=== PATIENT | female | born 1940 | race Caucasian/White ===

== ENCOUNTER → 2017-07-13 | Outpatient (CLI) | payer OTHER ==
[~2017-07-13] MED LIST: ALLO100T PO; ASCA500 PO; ASPEC325 PO; ATV/2 PO; CHOL100010 PO; COLC0.6T54 PO; DOCU100C PO; FRS/40 PO; KFL500 PO; LACTCHW3 PO; LEVO125T5 PO; MRP5 PO; NRN100 PO; OMEG10007 PO; OMEP40CA PO; OXYC-164 PO; POTA1080 PO; SULF800T23 PO
[2017-07-13 12:50] LABS: ALT/SGPT 15 U/L (12-78); BLOOD UREA NITROGEN 17 mg/dl (7-18); BUN/CREATININE RATIO 18.9 (10-20); CALCIUM 8.7 mg/dl (8.5-10.1); CARBON DIOXIDE 31 mmol/L (21-32); CHLORIDE 104 mmol/L (98-107); CHOLESTEROL 181 mg/dl (0-200); CREATININE 0.87 mg/dl (0.60-1.20); GLUCOSE,FASTING 111 mg/dl (70-99); POTASSIUM 3.6 mmol/L (3.5-5.1); SODIUM 141 mmol/L (136-145)
[2017-07-13 12:51] LABS: ESTIMATED AVERAGE GLUCOSE 137 mg/dl; HA1C FLAG Normal (Normal)
[2017-07-13 13:01] LABS: ALB/GLOB RATIO 0.9 (0.9-2); ALKALINE PHOSPHATASE 117 U/L (45-117); AST/SGOT 10 U/L (15-37); CHOLESTEROL/HDL RATIO 3.2; HDL CHOLESTEROL 56 mg/dl; LDL CHOLESTEROL CALCULATED 98 mg/dl; TRIGLYCERIDES 133 mg/dl (0-150); VERY LOW DENSITY LIPOPROT CALC 27 mg/dl
--- NOTE | 2017-07-17 13:44 | CODING QUERY MEDICAL NECESSITY ---
SUPPORTING DIAGNOSIS NEEDED A supporting diagnosis is required for the test/procedure performed on this patient in order for us to be reimbursed by the patient's insurance. Please provide a supporting diagnosis for the following test/procedure listed below next to the test name along with your signature. *If there is no additional diagnosis for this patient that would support the following test/procedure please document that below next to the test/procedure. Test(s)/Procedure(s) that require a supporting diagnosis: * HEMOGLOBIN A1C DIAGNOSIS: Provider Signature: Date: Thank you Al[facility] [employer] Once completed, please kindly fax back to [phone] For questions please call [phone]
== END | disposition home or self-care (01) ==
LOC: C.LABPBG 09:35
PROVIDERS: ATTEND Physician Assistant
DX: Z00.00 Encounter for general adult medical examination without abnormal findings (principal); E03.9 Hypothyroidism, unspecified; E66.01 Morbid (severe) obesity due to excess calories; R73.03 Prediabetes

== ENCOUNTER → 2017-08-04 | Outpatient (CLI) | payer OTHER | END | disposition home or self-care (01) | LOC: C.MAMM 12:35 | PROVIDERS: ATTEND Physician Assistant | DX: Z00.00 Encounter for general adult medical examination without abnormal findings (principal) ==

== ENCOUNTER → 2017-10-02 | Outpatient (CLI) | payer OTHER | END | disposition home or self-care (01) | LOC: C.LABPBG 14:59 | PROVIDERS: ATTEND Physician Assistant | DX: E03.9 Hypothyroidism, unspecified (principal) ==

== ENCOUNTER → 2018-01-19 | Outpatient (CLI) | payer OTHER ==
[2018-01-19 17:05] LABS: BASO % 0.3 %; BASO ABS # 0.02 K/uL (0-0.2); EOS % 4.7 %; EOS ABS # 0.35 K/uL (0-0.5); HEMOGLOBIN 12.5 g/dL (12.0-16.0); IG# 0.01 K/uL (0.00-0.02); LYMPH % 18.2 %; LYMPH ABS # 1.36 K/uL (1.2-3.4); MEAN CELL VOLUME 81.2 fL (80-100); MEAN CORPUSCULAR HEMOGLOBIN 24.8 pg (25-34); MEAN CORPUSCULAR HGB CONC 30.5 g/dl (32-36); MEAN PLATELET VOLUME 11.2 fL (7.4-10.4); MONO % 7.3 %; MONO ABS # 0.55 K/uL (0.11-0.59); NEUT % 69.4 %; PLATELET COUNT 281 K/uL (130-400); RED CELL DISTRIBUTION WIDTH CV 19.6 % (11.5-14.5); RED CELL DISTRIBUTION WIDTH SD 57.9 fL (36.4-46.3); WHITE BLOOD COUNT 7.49 K/uL (4.8-10.8)
[2018-01-19 17:24] LABS: BLOOD UREA NITROGEN 21 mg/dl (7-18); CALCIUM 8.8 mg/dl (8.5-10.1); CARBON DIOXIDE 32 mmol/L (21-32); CREATININE 0.85 mg/dl (0.60-1.20); GLUCOSE 99 mg/dl (70-99); POTASSIUM 3.5 mmol/L (3.5-5.1); SODIUM 140 mmol/L (136-145)
== END | disposition home or self-care (01) ==
LOC: C.LABPBG 14:29
PROVIDERS: ATTEND Internal Medicine Hematology & Oncology
DX: R79.89 Other specified abnormal findings of blood chemistry (principal)

== ENCOUNTER 2019-02-17 11:06 | Inpatient (IN) ==
[2019-02-17] MEDS ORDERED: SODIUM CHLORIDE 0.9% 1000ML 1,000 ML IV SCH (12:00)
[2019-02-17 12:25] LABS: Basophils # (auto) 0.01 K/uL (0-0.2); Basophils % (auto) 0.2 %; Eosinophils # (auto) 0.41 K/uL (0-0.5); Eosinophils % (auto) 8.7 %; Hematocrit (blood only) 37.9 % (37-47); Hemoglobin 11.7 g/dL (12.0-16.0); Immature Granulocytes # (auto) 0.02 K/uL (0.00-0.02); Immature Granulocytes % (auto) 0.4 %; Lymphocytes # (auto) 0.61 K/uL (1.2-3.4); Mean Corpuscular Hgb Conc 30.9 g/dL (32-36); Mean Corpuscular Volume 83.5 fL (80-100); Mean Platelet Volume 10.2 fL (7.4-10.4); Monocytes # (auto) 0.69 K/uL (0.11-0.59); Monocytes % (auto) 14.7 %; Neutrophils # (auto) 2.95 K/uL (1.4-6.5); Platelet Count 232 K/uL (130-400); RDW Coefficient of Variation 17.9 % (11.5-14.5); RDW Standard Deviation 54.8 fL (36.4-46.3); Red Blood Count 4.54 M/uL (4.2-5.4); White Blood Count 4.69 K/uL (4.8-10.8)
[2019-02-17 12:39] LABS: Albumin Level 3.5 gm/dl (3.4-5.0); BUN Creatinine Ratio 19.2 (10-20); Calcium 8.9 mg/dl (8.5-10.1); Creatinine Clr Calc Pharmacy 43.6 ml/min; Est GFR (African American) 44.8; Est GFR (Non-African American) 38.6; Magnesium 2.6 mg/dl (1.8-2.4)
--- NOTE | 2019-02-17 12:47 | XRay Report ---
XR chest 1V portable CLINICAL HISTORY: weakness COMPARISON STUDY: Chest radiograph November 23, 2015. FINDINGS: Degenerative changes of both glenohumeral joints are incidentally noted. Elevation of the r ight hemidiaphragm is unchanged. There is no pneumothorax or pleural effusion. Note is made of mild c ardiomegaly. IMPRESSION: 1. No acute cardiopulmonary findings. 2. Stable elevation of the right hemidiaphragm. Electronically signed by: Adolph Smith M.D. 02/17/2019 12:45 PM
[2019-02-17 12:50] LABS: Albumin Globulin Ratio 0.9 (0.9-2); Bilirubin,Total 0.3 mg/dl (0.2-1); Total Protein 7.5 gm/dl (6.4-8.2)
[2019-02-17 12:53] LABS: Appearance Urine Clear (Clear); Bilirubin Urine Negative (Negative); Blood Urine Negative (Negative); Color Urine Yellow; Glucose Urine UA Negative (Negative); Ketones Urine Negative (Negative); Leukocyte Esterase Urine Negative (Negative); Nitrite Urine Negative (Negative); Protein Urine Negative (Negative); Specific Gravity Urine 1.019 (1.000-1.030); Urobilinogen Urine Negative (Negative); pH Urine 7.5 (4.5-7.5)
--- NOTE | 2019-02-17 15:53 | XRay Report ---
RIGHT ANKLE 3 VIEWS CLINICAL HISTORY: Fall with right ankle pain. FINDINGS: 3 views of the right ankle are obtained. No prior studies are available for comparison at t he time of dictation. The skeletal structures are heterogeneously osteopenic. No acute fracture is id entified. The ankle mortise is intact. There is a small joint effusion. Diffuse soft tissue edema is present throughout the imaged right lower extremity. There is atherosclerotic calcification of the re gional arteries. There are large dorsal and plantar calcaneal enthesophytes. Arthritic change is note d in the hindfoot. IMPRESSION: 1. Diffuse soft tissue edema with no radiographic evidence of acute fracture. 2. Osteopenia, arthritic change, and large heel spurs as above. Electronically signed by: Sd Abdalla M.D. 02/17/2019 3:51 PM
[2019-02-17] MEDS ORDERED: DOXYCYCLINE HYCLATE 100 MG CAP PO STA (15:59)
--- NOTE | 2019-02-17 16:02 | Emergency Department Note ---
Entered by Leonarda Arenas acting as a scribe for History of Present Illness General Chief complaint: Illness Stated complaint: weakness Source: patient Mode of arrival: EMS Limitations: no limitations History of Present Illness Provider complaint: weakness Onset (ago): day(s) 3 Location: head (generalized) Pain Consistency: + other (worsening) Maximum Pain Intensity: 4 Quality: + other (weakness) Associated symptoms: + shortness of breath; no cough and no fever/chills The patient is a 79 year old female who presents to the ER via EMS with complaints of a worsening weakness that began 3 days ago. The patient reports that her legs feel heavy and that she has almost fallen secondary to the weakness. She states that she has been short of breath at times and denies wearing nasal cannula oxygen at baseline. She denies any fevers or acute coughs. She notes that she has taken 3 pills of her prescribed medication for her UTI. She denies any recent head injuries. She reports that she has been eating and drinking baseline. She denies any vomiting or diarrhea. She states that she has chronic leg swelling and is instructed to take Lasix twice a day but notes she does not always do this. Home Medications Home Medications Medication Instructions Recorded Confirmed Type Prilosec OTC 40 mg PO DAILY 10/26/18 02/17/19 History allopurinol [Zyloprim] 100 mg PO TID 10/26/18 02/17/19 History ascorbic acid (vitamin C) 1 g PO DAILY 10/26/18 02/17/19 History aspirin 325 mg PO DAILY 10/26/18 02/17/19 History cholecalciferol (vitamin D3) 1,000 unit PO DAILY 10/26/18 02/17/19 History [Vitamin D3] docusate sodium 200 mg PO DAILY 10/26/18 02/17/19 History furosemide [Lasix] 80 mg PO BID 10/26/18 02/17/19 History levothyroxine 137 mcg PO DAILY 10/26/18 02/17/19 History nifedipine 30 mg PO DAILY #30 tab 10/27/18 02/17/19 Rx calcium carbonate [Calcium 600] 600 mg PO DAILY 02/17/19 02/17/19 History gabapentin 300 mg PO TID 02/17/19 02/17/19 History omega 0-[id number]-fish oil [Fish Oil] 1 cap PO DAILY 02/17/19 02/17/19 History potassium chloride 10 meq PO DAILY 02/17/19 02/17/19 History pramipexole 0.5 mg PO HS 02/17/19 02/17/19 History sulfamethoxazole-trimethoprim 1 tab PO BID 02/17/19 02/17/19 History triamcinolone acetonide 1 applic TOPICAL BID 02/17/19 02/17/19 History vitamin E 1,000 unit PO DAILY 02/17/19 02/17/19 History Allergies Allergy/AdvReac Type Severity Reaction Status Date / Time bandaids AdvReac Unknown unknown Uncoded 02/17/19 12:00 Past Med/Surg History Medical History Morbid obesity (Chronic) CHAKA (acute kidney injury) (Acute) Ambulatory dysfunction (Acute) Right ankle sprain (Acute) Fall (Acute) Venous insufficiency (Chronic) Cellulitis of both lower extremities (Acute) Chronic venous insufficiency (Acute) GERD (gastroesophageal reflux disease) (Acute) Gout (Acute) Hypothyroid (Acute) PAD (peripheral artery disease) (Acute) RLS (restless legs syndrome) (Acute) Surgical History History of bilateral knee replacement (Acute) History of cholecystectomy (Acute) History of hysterectomy (Acute) Social History Preferred Language: Wallisian Communication Ability: Effective Communication Ability Comment: unable to hold utensil d/t BUE pain from arthritis 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 and A total of 10 systems reviewed and were otherwise negative Physical Exam Vital Signs Vital Signs - 24 hr 02/17/19 10:53 02/17/19 12:32 02/17/19 13:15 Temperature 36.4 C L Temperature Source Oral Sepsis Recent Fever Within 48 Hours No Sepsis New/Unexplained Change in Mental Status No Sepsis Action Taken by Nursing No Action Required Pulse Rate 76 Pulse Rate [Apical] 75 Respiratory Rate 16 18 Blood Pressure 127/109 H Blood Pressure [Right Arm] 149/83 H Blood Pressure Mean 115 Blood Pressure Mean [Right Arm] 105 Pulse Oximetry 89 L 96 96 Oxygen Delivery Method Room Air Nasal Cannula Nasal Cannula Oxygen Flow Rate 2 2 Vital signs reviewed. General: Well-appearing, morbidly obese, in no significant distress. HEENT: No scleral icterus, PERRLA, neck supple. Atraumatic. Cardiovascular: Regular rate and rhythm, no extra sounds. Pulmonary: Clear to auscultation bilaterally, normal work of breathing. Abdomen: Soft, nontender, nondistended, positive bowel sounds. Musculoskeletal: Atraumatic, bilateral lower extremity edema and venous stasis changes. Neurologic: Patient awake alert and oriented x 3, full strength in all 4 extremities. Cranial nerves 2 through 12 grossly intact. Skin: Warm, dry, no rash Course 1153: Past medical records reviewed. The patient was evaluated in room A12B. A complete history and physical examination was performed. 1515: The patient is now complaining of right ankle pain. Administered Medications Acetaminophen (Tylenol) 650 mg PO Q4H PRN PRN Reason: pain/fever Stop: 03/19/19 19:05 Last Admin: 02/19/19 13:58 Dose: 650 mg Documented by: [id number] Admin: 02/19/19 00:32 Dose: 650 mg Documented by: [id number] Admin: 02/18/19 09:23 Dose: 650 mg Documented by: [id number] Admin: 02/18/19 01:44 Dose: 650 mg Documented by: [id number] Admin: 02/17/19 20:47 Dose: 650 mg Documented by: [id number] Allopurinol (Zyloprim) 100 mg PO TID [facility] Stop: 03/19/19 20:59 Last Admin: 02/19/19 13:56 Dose: 100 mg Documented by: [id number] Admin: 02/19/19 08:51 Dose: 100 mg Documented by: [id number] Admin: 02/18/19 20:07 Dose: 100 mg Documented by: [id number] Admin: 02/18/19 13:16 Dose: 100 mg Documented by: [id number] Admin: 02/18/19 08:04 Dose: 100 mg Documented by: [id number] Admin: 02/17/19 21:01 Dose: 100 mg Documented by: [id number] Ascorbic Acid (Vitamin C) 1,000 mg PO DAILY [facility] Stop: 03/20/19 08:59 Last Admin: 02/19/19 08:52 Dose: 1,000 mg Documented by: [id number] Admin: 02/18/19 08:04 Dose: 1,000 mg Documented by: [id number] Aspirin (Ecotrin) 325 mg PO DAILY [facility] Stop: 03/20/19 08:59 Last Admin: 02/19/19 08:51 Dose: 325 mg Documented by: [id number] Admin: 02/18/19 08:03 Dose: 325 mg Documented by: [id number] Diclofenac Sodium (Voltaren 1% Top) 1 appln EXT Q12 PRN PRN Reason: Pain Stop: 03/21/19 04:04 Last Admin: 02/19/19 08:50 Dose: 1 appln Documented by: [id number] Admin: 02/19/19 05:45 Dose: 1 appln Documented by: [id number] Docusate Sodium (Colace) 200 mg PO DAILY [facility] Stop: 03/20/19 08:59 Last Admin: 02/19/19 08:52 Dose: 200 mg Documented by: [id number] Admin: 02/18/19 08:03 Dose: 200 mg Documented by: [id number] Enoxaparin Sodium (Lovenox) 40 mg SQ Q24H [facility] Stop: 03/19/19 20:59 Last Admin: 02/18/19 20:07 Dose: 40 mg Documented by: [id number] Admin: 02/17/19 21:05 Dose: 40 mg Documented by: [id number] Fish Oil ([place]-3 (Purified Fish Oil)) 1 gm PO DAILY [facility] Stop: 03/20/19 08:59 Last Admin: 02/19/19 08:51 Dose: 1 gm Documented by: [id number] Admin: 02/18/19 08:04 Dose: 1 gm Documented by: [id number] Gabapentin (Neurontin) 300 mg PO TID [facility] Stop: 03/19/19 20:59 Last Admin: 02/19/19 13:56 Dose: 300 mg Documented by: [id number] Admin: 02/19/19 08:50 Dose: 300 mg Documented by: [id number] Admin: 02/18/19 20:07 Dose: 300 mg Documented by: [id number] Admin: 02/18/19 13:16 Dose: 300 mg Documented by: [id number] Admin: 02/18/19 08:05 Dose: 300 mg Documented by: [id number] Admin: 02/17/19 21:02 Dose: 300 mg Documented by: [id number] Ceftriaxone Sodium 2,000 mg/ (Dextrose) 70 mls @ 100 mls/hr IV Q24H [facility]; Protocol Stop: 02/27/19 19:59 Last Infusion: 02/18/19 21:33 Dose: 0 mls/hr Documented by: [id number] Admin: 02/18/19 20:06 Dose: 100 mls/hr Documented by: [id number] Infusion: 02/17/19 21:37 Dose: 0 mls/hr Documented by: [id number] Admin: 02/17/19 20:48 Dose: 100 mls/hr Documented by: [id number] [facility]ine [facility] S[facility]: 03/20/19 06:29 Last Admin: 02/19/19 05:45 Dose: 137 mcg Documented by: [id number] Admin: 02/18/19 05:54 Dose: 137 mcg Documented by: [id number] Multivitamins/Minerals (Caltrate Plus) 1 tab PO DAILY [facility] Stop: 03/20/19 08:59 Last Admin: 02/19/19 08:50 Dose: 1 tab Documented by: [id number] Admin: 02/18/19 08:04 Dose: 1 tab Documented by: [id number] Pantoprazole Sodium (Protonix) 40 mg PO DAILY [facility] Stop: 03/20/19 08:59 Last Admin: 02/19/19 08:50 Dose: 40 mg Documented by: [id number] Admin: 02/18/19 08:04 Dose: 40 mg Documented by: [id number] Pramipexole Dihydrochloride (Mirapex) 0.5 mg PO [facility] Stop: 03/19/19 20:59 Last Admin: 02/18/19 20:07 Dose: 0.5 mg Documented by: [id number] Admin: 02/17/19 21:01 Dose: 0.5 mg Documented by: [id number] Triamcinolone Acetonide (Kenalog 0.025%) 1 appln TOP BID [facility] Stop: 03/19/19 20:59 Last Admin: 02/19/19 08:52 Dose: 1 appln Documented by: [id number] Admin: 02/18/19 20:07 Dose: 1 appln Documented by: [id number] Admin: 02/18/19 08:05 Dose: 1 appln Documented by: [id number] Admin: 02/17/19 21:00 Dose: 1 appln Documented by: [id number] Vitamin D (Vitamin D3) 1,000 units PO DAILY [facility] Stop: 03/20/19 08:59 Last Admin: 02/19/19 08:51 Dose: 1,000 units Documented by: [id number] Admin: 02/18/19 08:04 Dose: 1,000 units Documented by: [id number] Vitamin E (Vitamin E) 800 units PO DAILY [facility] Stop: 03/20/19 08:59 Last Admin: 02/19/19 08:51 Dose: 800 units Documented by: [id number] Admin: 02/18/19 09:19 Dose: 800 units Documented by: [id number] Discontinued Medications Doxycycline Hyclate (Vibramycin) 100 mg PO NOW STA Stop: 02/17/19 16:00 Last Admin: 02/17/19 16:52 Dose: 100 mg Documented by: [id number] Sodium Chloride (Nss 1000ml) 1,000 mls @ 125 mls/hr IV .Q8H [facility] Stop: 02/17/19 19:59 Last Infusion: 02/17/19 19:11 Dose: 0 mls/hr Documented by: [id number] Admin: 02/17/19 12:20 Dose: 125 mls/hr Documented by: [id number] Sodium Chloride (Nss 1000ml) 1,000 mls @ 80 mls/hr IV .[id number] [facility] Stop: 03/19/19 19:29 Last Admin: 02/18/19 11:32 Dose: Not Given Documented by: [id number] Infusion: 02/18/19 11:30 Dose: 0 mls/hr Documented by: [id number] Admin: 02/17/19 20:48 Dose: 80 mls/hr Documented by: [id number] Medical Decision Making Differential Diagnosis Differential Diagnosis includes but is not limited to dehydration, stroke, ane pierre, hypoglycemia, hyponatremia, hypernatremia, urinary tract infection, pneumonia, bronchitis, sepsis, gastroenteritis, additional abdominal pathology, metabolic abnormalities and infections. Medical Records Attestation: I reviewed the patient's medical records. The patient was diagnosed with a UTI on the of this month and was treated with Bactrim. Home Medications Current Medication List: was personally reviewed by me Laboratory Data Attestation: I reviewed the patient's lab results. Result diagrams: 02/19/19 05:36 02/19/19 05:36 Lab Results 02/17/19 02/17/19 02/17/19 Range/Units 12:10 12:10 12:20 WBC 4.69 L (4.8-10.8) K/uL RBC 4.54 (4.2-5.4) M/uL Hgb 11.7 L (12.0-16.0) g/dL Hct 37.9 (37-47) % MCV 83.5 (80-100) fL MCH 25.8 (25-34) pg MCHC 30.9 L (32-36) g/dL RDW Std Deviation 54.8 H (36.4-46.3) fL RDW Coeff of Josue 17.9 H (11.5-14.5) % Plt Count 232 (130-400) K/uL MPV 10.2 (7.4-10.4) fL Immature Gran % (Auto) 0.4 % Neut % (Auto) 63.0 % Lymph % (Auto) 13.0 % Stone % (Auto) 14.7 % Eos % (Auto) 8.7 % Baso % (Auto) 0.2 % Immature Gran # (Auto) 0.02 (0.00-0.02) K/uL Neut # (Auto) 2.95 (1.4-6.5) K/uL Lymph # (Auto) 0.61 L (1.2-3.4) K/uL Stone # (Auto) 0.69 H (0.11-0.59) K/uL Eos # (Auto) 0.41 (0-0.5) K/uL Baso # (Auto) 0.01 (0-0.2) K/uL PT 9.9 (9.0-12.0) Seconds INR 1.0 (0.9-1.1) Sodium 141 (136-145) mmol/L Potassium 4.0 (3.5-5.1) mmol/L Chloride 104 (98-107) mmol/L Carbon Dioxide 30 (21-32) mmol/L Anion Gap 7.0 (3-11) BUN 25 H (7-18) mg/dl Creatinine 1.31 H (0.6-1.2) mg/dl Est Cr Clr Drug Dosing 43.6 ml/min Est GFR ( Amer) 44.8 Est GFR (Non-Af Amer) 38.6 BUN/Creatinine Ratio 19.2 (10-20) Glucose 93 (70-99) mg/dl Calcium 8.9 (8.5-10.1) mg/dl Magnesium 2.6 H (1.8-2.4) mg/dl Total Bilirubin 0.3 (0.2-1) mg/dl AST 9 L (15-37) U/L ALT 13 (12-78) U/L Alkaline Phosphatase 103 (45-117) U/L Total Protein 7.5 (6.4-8.2) gm/dl Albumin 3.5 (3.4-5.0) gm/dl Globulin 4.0 (2.5-4.0) gm/dl Albumin/Globulin Ratio 0.9 (0.9-2) TSH 2.790 (0.300-4.500) uIu/ml Urine Color Urine Appearance (Clear) Urine pH (4.5-7.5) Ur Specific [place] (1.000-1.030) Urine Protein (Negative) Urine Glucose (UA) (Negative) Urine Ketones (Negative) Urine Blood (Negative) Urine Nitrite (Negative) Urine Bilirubin (Negative) Urine Urobilinogen (Negative) Ur Leukocyte Esterase (Negative) 02/17/19 Range/Units 12:45 WBC (4.8-10.8) K/uL RBC (4.2-5.4) M/uL Hgb (12.0-16.0) g/dL Hct (37-47) % MCV (80-100) fL MCH (25-34) pg MCHC (32-36) g/dL RDW Std Deviation (36.4-46.3) fL RDW Coeff of Josue (11.5-14.5) % Plt Count (130-400) K/uL MPV (7.4-10.4) fL Immature Gran % (Auto) % Neut % (Auto) % Lymph % (Auto) % Stone % (Auto) % Eos % (Auto) % Baso % (Auto) % Immature Gran # (Auto) (0.00-0.02) K/uL Neut # (Auto) (1.4-6.5) K/uL Lymph # (Auto) (1.2-3.4) K/uL Stone # (Auto) (0.11-0.59) K/uL Eos # (Auto) (0-0.5) K/uL Baso # (Auto) (0-0.2) K/uL PT (9.0-12.0) Seconds INR (0.9-1.1) Sodium (136-145) mmol/L Potassium (3.5-5.1) mmol/L Chloride (98-107) mmol/L Carbon Dioxide (21-32) mmol/L Anion Gap (3-11) BUN (7-18) mg/dl Creatinine (0.6-1.2) mg/dl Est Cr Clr Drug Dosing ml/min Est GFR ( Amer) Est GFR (Non-Af Amer) BUN/Creatinine Ratio (10-20) Glucose (70-99) mg/dl Calcium (8.5-10.1) mg/dl Magnesium (1.8-2.4) mg/dl Total Bilirubin (0.2-1) mg/dl AST (15-37) U/L ALT (12-78) U/L Alkaline Phosphatase (45-117) U/L Total Protein (6.4-8.2) gm/dl Albumin (3.4-5.0) gm/dl Globulin (2.5-4.0) gm/dl Albumin/Globulin Ratio (0.9-2) TSH (0.300-4.500) uIu/ml Urine Color Yellow Urine Appearance Clear (Clear) Urine pH 7.5 (4.5-7.5) Ur Specific [place] 1.019 (1.000-1.030) Urine Protein Negative (Negative) Urine Glucose (UA) Negative (Negative) Urine Ketones Negative (Negative) Urine Blood Negative (Negative) Urine Nitrite Negative (Negative) Urine Bilirubin Negative (Negative) Urine Urobilinogen Negative (Negative) Ur Leukocyte Esterase Negative (Negative) Imaging Data Radiologist's Impression: Radiology results as stated below per my review and the radiologist's interpretation: XR chest 1V portable CLINICAL HISTORY: weakness COMPARISON STUDY: Chest radiograph November 23, 2015. FINDINGS: Degenerative changes of both glenohumeral joints are incidentally noted. Elevation of the right hemidiaphragm is unchanged. There is no pneum othorax or pleural effusion. Note is made of mild cardiomegaly. IMPRESSION: 1. No acute cardiopulmonary findings. 2. Stable elevation of the right hemidiaphragm. Electronically signed by: Adolph Smith M.D. 02/17/2019 12:45 PM ECG Data Attestation: I personally reviewed and interpreted this ECG as follows: Indication: weakness Rate (beats per minute): 81 Rhythm: normal sinus Findings: + other (non-specific T wave abn); no acute ischemic change and no ec topy Blood Pressure Blood Pressure Findings: Normal blood pressure Blood Pressure Disposition: did not require urgent referral MDM Narrative This patient was evaluated and appeared to be in no significant distress. IV access was obtained and laboratory work was drawn. 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 Patient was currently being treated for UTI growing Proteus with Bactrim. Doxycycline 100 mg p.o. was added for cellulitic change. Chest x-ray is clear. Laboratory work is fairly reassuring. Patient complained of right ankle pain on my reevaluation and an x-ray was performed, this is negative for acute fracture. Patient has not been overly compliant with her Lasix due to ambulatory difficulties. When discussing the possibility of a rehab facility or transfer home, the patient became tearful. She feels she is not in any condition to go home. She states her daughter's "almost dropped me twice" trying to transfer from the toilet. Case management was consulted and hospitalist management was recommended given the patient's situation. She may require rehabilitation stay after UTI is fully treated. Patient is aware of the plan and agrees. Impression & Plan UTI (urinary tract infection), Ambulatory dysfunction, Weakness generalized Discharge Plan Visit Data *Final* Discharge Date/Time: 02/17/19 18:06 Chief Complaint: Illness Stated Complaint: weakness ED Provider: Jessie Harmon Discharge Problem: UTI (urinary tract infection), Ambulatory dysfunction, Weakness generalized Patient Disposition: Admitted As Inpatient Discharge Instructions Interventions: ED Discharge Assessment Last Done: 02/17/19 18:06 Discharge Problem: UTI (urinary tract infection) Qualifiers: Urinary tract infection type: acute cystitis Hematuria presence: without hematuria Qualified Code(s): N30.00 - Acute cystitis without hematuria The scribe's documentation has been prepared under my direction and personally reviewed by me in its entirety. I confirm that the note above accurately reflects all work, treatment, procedures, and medical decision making performed by me.
--- NOTE | 2019-02-17 17:00 | History & Physical Report ---
Date of Service February 17, 2019 Assessment & Plan (1) Cellulitis of both lower extremities: Worsening erythema bilateral lower extremities. This could simply be stasis dermatitis but she could also have cellulitis. Intravenous Rocephin ordered Present on Admission?: Yes (2) Venous insufficiency: This is a chronic problem. Nifedipine may be aggravating the edema. Nifedipine will be discontinued. Will apply Stalin wraps to both legs below the knees to try to help resolve some of the swelling Present on Admission?: Yes (3) Fall: Mechanical fall today without syncope. This is how she sprained her right ankle Present on Admission?: Yes (4) Right ankle sprain: Supportive care. OT and PT consultations. Pain control measures as neces maile. No fracture on x-ray Present on Admission?: Yes (5) Ambulatory dysfunction: OT and PT assessments ordered. Present on Admission?: Yes (6) CHAKA (acute kidney injury): This may be related to the recent Bactrim usage. Bactrim has been discontinued. Judicious IV fluid administration. Monitor urine output. Daily labs Present on Admission?: Yes (7) Morbid obesity: BMI greater than 40. Significant weight loss recommended History of Present Illness Chief Complaint: Right ankle sprain with mechanical fall, ambulatory dysfunction, possible cellulitis both lower extremities below the knees Primary Care Provider: Maria Esther Abdullahi, DO Morbidly obese 79-year-old female who fell at home suffering a right ankle sprain. She is morbidly obese and cannot ambulate at this time. She also has evidence of worsening edema and erythema of both lower extremities below the knees. This could be cellulitis. She is mildly volume depleted with mild acute kidney injury. Creatinine has risen to 1.3. This may have been due to recent Bactrim therapy for a UTI which appears to have been treated. She was also placed on nifedipine earlier this year for suspected vasospasm of the circulation in her legs. Nifedipine may be aggravating the underlying leg edema and will be discontinued. She will be admitted for further evaluation and treatment. Occupational Therapy and physical therapy have been requested. Case management will need to get involved with this case. Allergies Allergy/AdvReac Type Severity Reaction Status Date / Time bandaids AdvReac Unknown unknown Uncoded 02/17/19 12:00 Home Medications Home Medications Medication Instructions Recorded Confirmed Type Prilosec OTC 40 mg PO DAILY 10/26/18 02/17/19 History allopurinol [Zyloprim] 100 mg PO TID 10/26/18 02/17/19 History ascorbic acid (vitamin C) 1 g PO DAILY 10/26/18 02/17/19 History aspirin 325 mg PO DAILY 10/26/18 02/17/19 History cholecalciferol (vitamin D3) 1,000 unit PO DAILY 10/26/18 02/17/19 History [Vitamin D3] docusate sodium 200 mg PO DAILY 10/26/18 02/17/19 History furosemide [Lasix] 80 mg PO BID 10/26/18 02/17/19 History levothyroxine 137 mcg PO DAILY 10/26/18 02/17/19 History nifedipine 30 mg PO DAILY #30 tab 10/27/18 02/17/19 Rx calcium carbonate [Calcium 600] 600 mg PO DAILY 02/17/19 02/17/19 History gabapentin 300 mg PO TID 02/17/19 02/17/19 History omega 7-bby-oxs-fish oil [Fish Oil] 1 cap PO DAILY 02/17/19 02/17/19 History potassium chloride 10 meq PO DAILY 02/17/19 02/17/19 History pramipexole 0.5 mg PO HS 02/17/19 02/17/19 History sulfamethoxazole-trimethoprim 1 tab PO BID 02/17/19 02/17/19 History triamcinolone acetonide 1 applic TOPICAL BID 02/17/19 02/17/19 History vitamin E 1,000 unit PO DAILY 02/17/19 02/17/19 History Past Med/Surg History Medical History Chronic venous insufficiency (Acute) GERD (gastroesophageal reflux disease) (Acute) Gout (Acute) Hypothyroid (Acute) PAD (peripheral artery disease) (Acute) RLS (restless legs syndrome) (Acute) Surgical History History of bilateral knee replacement (Acute) History of cholecystectomy (Acute) History of hysterectomy (Acute) Social History Preferred Language: [place]er Beliefs That Will Affect Care: None Current Living Situation: Family Feels Safe at Home: Yes Smoking Status: Never smoker Tobacco Type: cigarettes Second Hand Exposure: No Hx Alcohol Use: No Hx Substance Use: No Review of Systems Review of Systems: All systems reviewed & are unremarkable except as noted in HPI & below Musculoskeletal: Right ankle sprain and discomfort. Worsening bilateral lower extremity leg edema below the knees bilaterally below the knees Physical Exam Constitutional: + morbidly obese; no acute distress, not ill appearing and no altered mental status Eyes: PERRL, conjunctivae normal, anicteric sclerae ENMT: external ear and nose normal, oropharynx normal Neck: trachea midline, no thyromegaly Respiratory: normal respiratory effort, lungs clear to auscultation Cardiovascular: RRR, no murmur, no edema Gastrointestinal (Abdomen): normal bowel sounds, soft, nontender, no hepatosplenomegaly Musculoskeletal: Markedly tender right ankle without deformity. 3+ pitting edema bilateral lower extremities below the knees with diffuse erythema bilaterally below the knees in the pretibial regions Skin: Diffuse bilateral erythema below the knees in the pretibial regions Neurologic: CN's II-XI intact bilaterally and moves all extremities; no focal motor deficits Results & Data Vital Signs (Past 12 Hours) Vital Signs Temp Pulse Pulse Resp BP BP Pulse Ox 02/17/19 13:15 75 18 149/83 H 96 02/17/19 12:32 96 02/17/19 10:53 36.4 C L 76 16 127/109 H 89 L Laboratory Results 02/17/19 12:10 02/17/19 12:10
[2019-02-17] MEDS ORDERED: ONDANSETRON INJ 2 MG/ML 2 ML VIAL IV PRN (19:06)
[2019-02-17] MEDS ORDERED: POLYETHYLENE (MIRALAX) 17 GM PACK PO PRN (19:06)
[2019-02-17] MEDS ORDERED: ALUMINUM/MAGNESIUM SUSP 30 ML UDC PO PRN (19:06)
[2019-02-17 19:55] LABS: Prothrombin Time 9.9 Seconds (9.0-12.0)
[2019-02-17] MEDS ORDERED: cefTRIAXone SODIUM 2,000 MG in DEXTROSE 5% 50 ML IV SCH (20:00)
[2019-02-17] MEDS: ACETAMINOPHEN 325 MG TAB PO PRN (20:47)
[2019-02-17] MEDS: cefTRIAXone SODIUM 2,000 MG in DEXTROSE 5% 70 ML IV SCH (20:48)
[2019-02-17] MEDS: SODIUM CHLORIDE 0.9% 1000ML 1,000 ML IV SCH (20:48)
[2019-02-17] MEDS: TRIAMCINOLONE ACET 0.025% CR 15 GM TUBE TOP SCH (21:00)
[2019-02-17] MEDS: PRAMIPEXOLE DIHYDROCHLO 0.5 MG TAB PO SCH (21:01)
[2019-02-17] MEDS: ALLOPURINOL 100 MG TAB PO SCH (21:01)
[2019-02-17] MEDS: GABAPENTIN 300 MG CAP PO SCH (21:02)
[2019-02-17] MEDS: ENOXAPARIN INJ 40 MG/0.4 ML SYR SQ SCH (21:05)
[2019-02-18] MEDS: ACETAMINOPHEN 325 MG TAB PO PRN ×2 (01:44→09:23)
[2019-02-18] MEDS: LEVOTHYROXINE SODIUM 137 MCG TABLET PO SCH (05:54)
[2019-02-18 07:07] LABS: BUN Creatinine Ratio 21.5 (10-20); Calcium 7.8 mg/dl (8.5-10.1); Creatinine Clr Calc Pharmacy 58.8 ml/min; Est GFR (African American) 64.4; Est GFR (Non-African American) 55.5
[2019-02-18] MEDS: DOCUSATE SODIUM 100 MG CAP PO SCH (08:03)
[2019-02-18] MEDS: ASPIRIN 325 MG ECTAB PO SCH (08:03)
[2019-02-18] MEDS: CALCIUM 600MG + VIT D 400 IU TAB PO SCH (08:04)
[2019-02-18] MEDS: OMEGA-3 (PURIFIED FISH OIL) 1 GM CAP PO SCH (08:04)
[2019-02-18] MEDS: PANTOprazole 40 MG TAB PO SCH (08:04)
[2019-02-18] MEDS: ALLOPURINOL 100 MG TAB PO SCH ×3 (08:04→20:07)
[2019-02-18] MEDS: CHOLECALCIFEROL 1,000 UNITS TAB PO SCH (08:04)
[2019-02-18] MEDS: ASCORBIC ACID 500 MG TAB PO SCH (08:04)
[2019-02-18] MEDS: TRIAMCINOLONE ACET 0.025% CR 15 GM TUBE TOP SCH ×2 (08:05→20:07)
[2019-02-18] MEDS: GABAPENTIN 300 MG CAP PO SCH ×3 (08:05→20:07)
[2019-02-18] MEDS ORDERED: TOCOPHERYL, DL-ALPHA 400 UNITS CAP PO SCH (09:00)
[2019-02-18] MEDS: TOCOPHERYL, DL-ALPHA 400 UNITS CAP PO SCH (09:19)
[2019-02-18] MEDS: SODIUM CHLORIDE 0.9% 1000ML 1,000 ML IV SCH (11:32)
--- NOTE | 2019-02-18 19:25 | Hospitalist Progress Note ---
Date of Service February 18, 2019 Assessment & Plan (1) Cellulitis of both lower extremities: - Worsening erythema in b/l lower extremities - given the increasing edema and recent Bactrim use this is likely stasis dermatitis rather than cellulitis but will continue Rocephin initially and monitor for improvement Present on Admission?: Yes (2) Venous insufficiency: - Possibly worsened by Nifedipine? Currently on hold - Utilizes AMI wraps at home and can continue here for mild compression - if swelling improves could implement stockings which would give better compression Present on Admission?: Yes (3) Fall: - Mechanical in nature - reports this was related to inability to left herself off the toilet and her daughters were not able to lift her at that time and she sprained her ankle - Reports no other injuries - PT/OT - appreciate continuing assessments/interventions - patient is not sure if she could go to rehab for concerns of taking care of her at home (4) Right ankle sprain: - STABLE; No evidence of fx - Supportive care; pain control PRN Present on Admission?: Yes (5) Ambulatory dysfunction: - Possibly multifactorial between recent UTI, lower extremity edema, deconditioning - PT/OT evaluations (6) CHAKA (acute kidney injury): - Possibly medication induced from recent Bactrim use? - Resolved with gentle hydration - will continue to monitor (7) Hypothyroidism: - STABLE - Levothyroxine 137 mcg daily (8) Morbid obesity: - BMI greater than 40. Weight loss encouraged/recommended Subjective Patient reports no issues at this time. Reports chronic pain that is worsened with movements but tolerable. States she has limited movement in her upper extremities due to severe arthritis. She reports over the past few weeks her legs have been weaker. She was unable to get off the toilet and her daughters had a difficult time helping her up and she twisted her ankle. She is not sure if she wants to go to rehab due to caring for her at home. She reports finishing a course of Abx for UTI and denies any urinary symptoms at this time. Review of Systems Constitutional: + weakness; no fever and no chills Respiratory: no cough and no dyspnea Cardiovascular: no chest pain, no palpitations and no lightheadedness Gastrointestinal: no abdominal pain, no nausea, no vomiting, no constipation and no diarrhea/loose stools Genitourinary: no dysuria Musculoskeletal: + back pain, + joint pain and + stiffness Integumentary: + rash and + erythema (b/l legs) Physical Exam Constitutional: WD/WN, vitals as above Eyes: + anicteric sclerae ENMT: Ears: no hearing impairment Neck: normal visual inspection and trachea midline Respiratory: normal respiratory effort, lungs clear to auscultation Auscultation: + diminished lung sounds Cardiovascular: Rate/Rhythm: regular rate and regular rhythm Gastrointestinal (Abdomen): Inspection/Auscultation: normal bowel sounds Percussion/Palpation: abdomen soft; abdomen nontender Musculoskeletal: Head/Neck/Chest: normocephalic and head atraumatic Extremities: no cyanosis and no clubbing Skin: no rashes, warm and dry Neurologic: moves all extremities Psychiatric: A+Ox3, euthymic affect Results & Data Vital Signs (Past 12 Hours) Vital Signs Temp Pulse Resp BP BP Pulse Ox 02/18/19 15:35 36.5 C 68 18 113/67 96 02/18/19 07:31 36.7 C 72 16 110/71 98
[2019-02-18] MEDS: cefTRIAXone SODIUM 2,000 MG in DEXTROSE 5% 70 ML IV SCH (20:06)
[2019-02-18] MEDS: ENOXAPARIN INJ 40 MG/0.4 ML SYR SQ SCH (20:07)
[2019-02-18] MEDS: PRAMIPEXOLE DIHYDROCHLO 0.5 MG TAB PO SCH (20:07)
[2019-02-19] MEDS: ACETAMINOPHEN 325 MG TAB PO PRN ×2 (00:32→13:58)
[2019-02-19] MEDS: DICLOFENAC SOD 1% GEL 100 GM TUBE EXT PRN ×2 (05:45→08:50)
[2019-02-19] MEDS: LEVOTHYROXINE SODIUM 137 MCG TABLET PO SCH (05:45)
[2019-02-19 06:09] LABS: Hematocrit (blood only) 33.2 % (37-47); Mean Corpuscular Hgb Conc 30.1 g/dL (32-36); Mean Corpuscular Volume 85.1 fL (80-100); Mean Platelet Volume 10.8 fL (7.4-10.4); Platelet Count 208 K/uL (130-400); White Blood Count 5.95 K/uL (4.8-10.8)
[2019-02-19 06:41] LABS: BUN Creatinine Ratio 17.5 (10-20); Calcium 7.9 mg/dl (8.5-10.1); Creatinine Clr Calc Pharmacy 60.1 ml/min; Potassium 4.2 mmol/L (3.5-5.1)
[2019-02-19] MEDS: PANTOprazole 40 MG TAB PO SCH (08:50)
[2019-02-19] MEDS: GABAPENTIN 300 MG CAP PO SCH ×3 (08:50→20:36)
[2019-02-19] MEDS: CALCIUM 600MG + VIT D 400 IU TAB PO SCH (08:50)
[2019-02-19] MEDS: OMEGA-3 (PURIFIED FISH OIL) 1 GM CAP PO SCH (08:51)
[2019-02-19] MEDS: CHOLECALCIFEROL 1,000 UNITS TAB PO SCH (08:51)
[2019-02-19] MEDS: ASPIRIN 325 MG ECTAB PO SCH (08:51)
[2019-02-19] MEDS: ALLOPURINOL 100 MG TAB PO SCH ×3 (08:51→20:36)
[2019-02-19] MEDS: TOCOPHERYL, DL-ALPHA 400 UNITS CAP PO SCH (08:51)
[2019-02-19] MEDS: DOCUSATE SODIUM 100 MG CAP PO SCH (08:52)
[2019-02-19] MEDS: TRIAMCINOLONE ACET 0.025% CR 15 GM TUBE TOP SCH ×2 (08:52→20:37)
[2019-02-19] MEDS: ASCORBIC ACID 500 MG TAB PO SCH (08:52)
--- NOTE | 2019-02-19 11:36 | Hospitalist Progress Note ---
Date of Service February 19, 2019 Assessment & Plan (1) Cellulitis of both lower extremities: - Worsening erythema in b/l lower extremities on admission - given the increasing edema and recent Bactrim use this is likely stasis dermatitis rather than cellulitis - no leukocytosis, will dc Rocephin if no growth from cultures after 48 hours. (2) Venous insufficiency: - Possibly worsened by Nifedipine? Currently on hold - Utilizes AMI wraps at home and can continue here for mild compression - if she an tolerate, will try TEDs (3) Fall: - Mechanical in nature - reports this was related to inability to lift herself off the toilet and her daughters were not able to lift her at that time and she sprained her ankle - Reports no other injuries - PT/OT - appreciate continuing assessments/interventions - patient is not sure if she could go to rehab for concerns of taking care of her at home (4) Right ankle sprain: - STABLE; No evidence of fx - Supportive care; pain control PRN (5) Ambulatory dysfunction: - Possibly multifactorial between recent UTI, lower extremity edema, deconditioning - PT/OT evaluations (6) CHAKA (acute kidney injury): - Possibly medication induced from recent Bactrim use? - Resolved with gentle hydration (7) Hypothyroidism: - STABLE - Levothyroxine 137 mcg daily (8) Morbid obesity: - BMI greater than 40. Weight loss encouraged/recommended (9) DVT prophylaxis: Enoxaparin Subjective Ms. Warner is painful in her injured right ankle and also has arthritis in her shoulders. She otherwise does not have complaints Review of Systems Review of Systems: All systems reviewed & are unremarkable except as noted in HPI & below Physical Exam Physical Exam: General: no distress Eyes: normal inspection, PERLL Respiratory: chest non tender, clear to auscultation, normal breath sounds, no respiratory distress, no accessory muscle use Cardiac: regular rate and rhythm, no rub or gallop, no murmur, edematous lower extremities GI/: active bowel sounds, no abd pain or tenderness, soft, non distended Extremities: normal range of motion, normal strength, tender right ankle Neuro/Psych: alert and oriented x 3, normal mood and affect Skin: normal color, dry Results & Data Vital Signs (Past 12 Hours) Vital Signs Temp Pulse Pulse Resp BP BP Pulse Ox 02/19/19 08:00 37 C 73 16 117/69 92 02/19/19 00:06 36.9 C 77 18 106/66 93
[2019-02-19] MEDS ORDERED: MICONAZOLE NITRATE POWDER 43 GM EXT PRN (18:25)
[2019-02-19] MEDS: cefTRIAXone SODIUM 2,000 MG in DEXTROSE 5% 70 ML IV SCH (20:34)
[2019-02-19] MEDS: ENOXAPARIN INJ 40 MG/0.4 ML SYR SQ SCH (20:35)
[2019-02-19] MEDS: PRAMIPEXOLE DIHYDROCHLO 0.5 MG TAB PO SCH (20:36)
[2019-02-20] MEDS: LEVOTHYROXINE SODIUM 137 MCG TABLET PO SCH (06:10)
[2019-02-20] MEDS: ACETAMINOPHEN 325 MG TAB PO PRN (06:12)
[2019-02-20] MEDS: CHOLECALCIFEROL 1,000 UNITS TAB PO SCH (08:27)
[2019-02-20] MEDS: ALLOPURINOL 100 MG TAB PO SCH ×3 (08:27→20:20)
[2019-02-20] MEDS: PANTOprazole 40 MG TAB PO SCH (08:27)
[2019-02-20] MEDS: GABAPENTIN 300 MG CAP PO SCH ×3 (08:27→20:19)
[2019-02-20] MEDS: DICLOFENAC SOD 1% GEL 100 GM TUBE EXT PRN ×2 (08:27→21:02)
[2019-02-20] MEDS: DOCUSATE SODIUM 100 MG CAP PO SCH (08:27)
[2019-02-20] MEDS: CALCIUM 600MG + VIT D 400 IU TAB PO SCH (08:27)
[2019-02-20] MEDS: ASCORBIC ACID 500 MG TAB PO SCH (08:28)
[2019-02-20] MEDS: TRIAMCINOLONE ACET 0.025% CR 15 GM TUBE TOP SCH ×2 (08:28→20:18)
[2019-02-20] MEDS: ASPIRIN 325 MG ECTAB PO SCH (08:28)
[2019-02-20] MEDS: OMEGA-3 (PURIFIED FISH OIL) 1 GM CAP PO SCH (08:28)
[2019-02-20] MEDS: TOCOPHERYL, DL-ALPHA 400 UNITS CAP PO SCH (08:28)
[2019-02-20 08:55] LABS: BUN Creatinine Ratio 20.2 (10-20); Calcium 8.3 mg/dl (8.5-10.1); Creatinine Clr Calc Pharmacy 85.1 ml/min; Est GFR (African American) 96.9; Est GFR (Non-African American) 83.6; Potassium 4.2 mmol/L (3.5-5.1)
--- NOTE | 2019-02-20 13:37 | Hospitalist Progress Note ---
Date of Service February 20, 2019 Assessment & Plan (1) Cellulitis of both lower extremities: - Worsening erythema in b/l lower extremities on admission - given the increasing edema and recent Bactrim use this is likely stasis dermatitis rather than cellulitis - no leukocytosis, no growth in BC, will dc Rocephin - resume home furosemide dosing (2) Venous insufficiency: - Possibly worsened by Nifedipine? Currently on hold - Utilizes AMI wraps at home and can continue here for mild compression - unable to tolerate LEXI hose (3) Fall: - Mechanical in nature - reports this was related to inability to lift herself off the toilet and her daughters were not able to lift her at that time and she sprained her ankle - Reports no other injuries - PT/OT - appreciate continuing assessments/interventions - considering [facility] for rehab (4) Right ankle sprain: - STABLE; No evidence of fx - Supportive care; pain control PRN (5) Ambulatory dysfunction: - Possibly multifactorial between recent UTI, lower extremity edema, deconditioning - PT/OT evaluations (6) CHAKA (acute kidney injury): - Possibly medication induced from recent Bactrim use? - Resolved with gentle hydration - resume furosemide (7) Hypothyroidism: - STABLE - Levothyroxine 137 mcg daily (8) Morbid obesity: - BMI greater than 40. Weight loss encouraged/recommended (9) DVT prophylaxis: Enoxaparin Subjective Ms. Warner is feeling a bit better today. She is mostly uncomfortable from spending so much time in bed. Review of Systems Review of Systems: All systems reviewed & are unremarkable except as noted in HPI & below Physical Exam Physical Exam: General: no distress Eyes: normal inspection, PERLL Respiratory: chest non tender, clear to auscultation, normal breath sounds, no respiratory distress, no accessory muscle use Cardiac: regular rate and rhythm, no rub or gallop, no murmur, no edema, no jvd GI/: active bowel sounds, no abd pain or tenderness, soft, non distended Extremities: normal range of motion, normal strength, non tender Neuro/Psych: alert and oriented x 3, normal mood and affect Skin: normal color, dry Results & Data Vital Signs (Past 12 Hours) Vital Signs Temp Pulse Resp BP Pulse Ox 02/20/19 07:25 36.9 C 77 18 98/64 L 96
[2019-02-20] MEDS: PRAMIPEXOLE DIHYDROCHLO 0.5 MG TAB PO SCH (20:18)
[2019-02-20] MEDS: FUROSEMIDE 80 MG TAB PO SCH (20:19)
[2019-02-20] MEDS: ENOXAPARIN INJ 40 MG/0.4 ML SYR SQ SCH (20:20)
[2019-02-21] MEDS: LEVOTHYROXINE SODIUM 137 MCG TABLET PO SCH (05:37)
[2019-02-21] MEDS: TOCOPHERYL, DL-ALPHA 400 UNITS CAP PO SCH (07:50)
[2019-02-21] MEDS: DICLOFENAC SOD 1% GEL 100 GM TUBE EXT PRN ×2 (07:50→22:12)
[2019-02-21] MEDS: ASPIRIN 325 MG ECTAB PO SCH (07:50)
[2019-02-21] MEDS: OMEGA-3 (PURIFIED FISH OIL) 1 GM CAP PO SCH (07:50)
[2019-02-21] MEDS: ASCORBIC ACID 500 MG TAB PO SCH (07:50)
[2019-02-21] MEDS: DOCUSATE SODIUM 100 MG CAP PO SCH (07:51)
[2019-02-21] MEDS: GABAPENTIN 300 MG CAP PO SCH ×3 (07:51→21:08)
[2019-02-21] MEDS: FUROSEMIDE 80 MG TAB PO SCH ×2 (07:51→21:07)
[2019-02-21] MEDS: PANTOprazole 40 MG TAB PO SCH (07:51)
[2019-02-21] MEDS: CHOLECALCIFEROL 1,000 UNITS TAB PO SCH (07:51)
[2019-02-21] MEDS: TRIAMCINOLONE ACET 0.025% CR 15 GM TUBE TOP SCH ×2 (07:52→21:06)
[2019-02-21] MEDS: CALCIUM 600MG + VIT D 400 IU TAB PO SCH (07:52)
[2019-02-21] MEDS: ALLOPURINOL 100 MG TAB PO SCH ×3 (07:52→21:09)
[2019-02-21] MEDS: ACETAMINOPHEN 325 MG TAB PO PRN (07:55)
[2019-02-21] MEDS: ENOXAPARIN INJ 40 MG/0.4 ML SYR SQ SCH (21:07)
[2019-02-21] MEDS: PRAMIPEXOLE DIHYDROCHLO 0.5 MG TAB PO SCH (21:08)
--- NOTE | 2019-02-21 21:43 | Hospitalist Progress Note ---
Date of Service February 21, 2019 Assessment & Plan (1) Cellulitis of both lower extremities: - Worsening erythema in b/l lower extremities on admission - given the increasing edema and recent Bactrim use this is likely stasis dermatitis rather than cellulitis - no leukocytosis, no growth in BC, will dc Rocephin - resume home furosemide dosing. Appears to be likely chronic venous stasis. noted below. (2) Venous insufficiency: - Possibly worsened by Nifedipine? Currently on hold - Utilizes AMI wraps at home and can continue here for mild compression - unable to tolerate LEXI hose (3) Fall: - Mechanical in nature - reports this was related to inability to lift herself off the toilet and her daughters were not able to lift her at that time and she sprained her ankle - Reports no other injuries - PT/OT - appreciate continuing assessments/interventions - considering [facility] for rehab . Will discuss with case management. (4) Right ankle sprain: - STABLE; No evidence of fx - Supportive care; pain control PRN (5) Ambulatory dysfunction: - Possibly multifactorial between recent UTI, lower extremity edema, de conditioning - PT/OT evaluations (6) CHAKA (acute kidney injury): - Possibly medication induced from recent Bactrim use? - Resolved with gentle hydration - resume furosemide (7) Hypothyroidism: - STABLE - Levothyroxine 137 mcg daily (8) Morbid obesity: - BMI greater than 40. Weight loss encouraged/recommended (9) DVT prophylaxis: Enoxaparin Subjective Patient reports no new complaints today. Review of Systems Review of Systems: All systems reviewed & are unremarkable except as noted in HPI & below Physical Exam Physical Exam: General: no distress Eyes: normal inspection, PERLL Respiratory: chest non tender, clear to auscultation, normal breath sounds, no respiratory distress, no accessory muscle use Cardiac: regular rate and rhythm, no rub or gallop, no murmur, no edema, no jvd GI/: active bowel sounds, no abd pain or tenderness, soft, non distended Extremities: normal range of motion, normal strength, non tender Neuro/Psych: alert and oriented x 3, normal mood and affect Skin: normal color, dry Results & Data Vital Signs (Past 12 Hours) Vital Signs Temp Pulse Pulse Resp BP Pulse Ox 02/21/19 20:59 82 18 107/68 99 02/21/19 15:04 36.3 C L 68 16 116/66 97
[2019-02-22] MEDS: ACETAMINOPHEN 325 MG TAB PO PRN (04:16)
[2019-02-22 05:51] LABS: Hematocrit (blood only) 35.7 % (37-47); Hemoglobin 11.2 g/dL (12.0-16.0); Mean Corpuscular Hgb Conc 31.4 g/dL (32-36); Mean Corpuscular Volume 85.2 fL (80-100); Mean Platelet Volume 10.2 fL (7.4-10.4); Platelet Count 232 K/uL (130-400); RDW Coefficient of Variation 17.7 % (11.5-14.5); RDW Standard Deviation 55.6 fL (36.4-46.3); Red Blood Count 4.19 M/uL (4.2-5.4); White Blood Count 5.88 K/uL (4.8-10.8)
[2019-02-22] MEDS: LEVOTHYROXINE SODIUM 137 MCG TABLET PO SCH (06:17)
[2019-02-22] MEDS: ALLOPURINOL 100 MG TAB PO SCH ×3 (07:50→20:24)
[2019-02-22] MEDS: CALCIUM 600MG + VIT D 400 IU TAB PO SCH (07:51)
[2019-02-22] MEDS: CHOLECALCIFEROL 1,000 UNITS TAB PO SCH (07:51)
[2019-02-22] MEDS: ASPIRIN 325 MG ECTAB PO SCH (07:52)
[2019-02-22] MEDS: DOCUSATE SODIUM 100 MG CAP PO SCH (07:52)
[2019-02-22] MEDS: TRIAMCINOLONE ACET 0.025% CR 15 GM TUBE TOP SCH ×2 (07:52→20:21)
[2019-02-22] MEDS: OMEGA-3 (PURIFIED FISH OIL) 1 GM CAP PO SCH (07:53)
[2019-02-22] MEDS: FUROSEMIDE 80 MG TAB PO SCH ×2 (07:53→20:22)
[2019-02-22] MEDS: GABAPENTIN 300 MG CAP PO SCH ×3 (07:53→20:22)
[2019-02-22] MEDS: PANTOprazole 40 MG TAB PO SCH (07:53)
[2019-02-22] MEDS: ASCORBIC ACID 500 MG TAB PO SCH (07:54)
[2019-02-22] MEDS: TOCOPHERYL, DL-ALPHA 400 UNITS CAP PO SCH (08:31)
[2019-02-22] MEDS: ENOXAPARIN INJ 40 MG/0.4 ML SYR SQ SCH (20:23)
[2019-02-22] MEDS: PRAMIPEXOLE DIHYDROCHLO 0.5 MG TAB PO SCH (20:23)
[2019-02-22] MEDS: DICLOFENAC SOD 1% GEL 100 GM TUBE EXT PRN (20:26)
--- NOTE | 2019-02-22 22:45 | Hospitalist Progress Note ---
Date of Service February 22, 2019 Assessment & Plan (1) Cellulitis of both lower extremities: - Worsening erythema in b/l lower extremities on admission - given the increasing edema and recent Bactrim use this is likely stasis dermatitis rather than cellulitis - no leukocytosis, no growth in BC, will dc Rocephin - resume home furosemide dosing. Appears to be likely chronic venous stasis. noted below. (2) Venous insufficiency: - Possibly worsened by Nifedipine? Currently on hold - Utilizes AMI wraps at home and can continue here for mild compression - unable to tolerate LEXI hose (3) Fall: - Mechanical in nature - reports this was related to inability to lift herself off the toilet and her daughters were not able to lift her at that time and she sprained her ankle - Reports no other injuries - PT/OT - appreciate continuing assessments/interventions - considering [facility] for rehab . Will discuss with case management. (4) Right ankle sprain: - STABLE; No evidence of fx - Supportive care; pain control PRN (5) Ambulatory dysfunction: - Possibly multifactorial between recent UTI, lower extremity edema, de conditioning - PT/OT evaluations (6) CHAKA (acute kidney injury): - Possibly medication induced from recent Bactrim use? - Resolved with gentle hydration - resume furosemide (7) Hypothyroidism: - STABLE - Levothyroxine 137 mcg daily (8) Morbid obesity: - BMI greater than 40. Weight loss encouraged/recommended (9) DVT prophylaxis: Enoxaparin Patient continues to await for placement. Awaiting insurance auth. No change in plan. Subjective 79 yo female reports feeling well. Patient has no new complaints today. Review of Systems Review of Systems: All systems reviewed & are unremarkable except as noted in HPI & below Physical Exam Physical Exam: General: no distress Eyes: normal inspection, PERLL Respiratory: chest non tender, clear to auscultation, normal breath sounds, no respiratory distress, no accessory muscle use Cardiac: regular rate and rhythm, no rub or gallop, no murmur, no edema, no jvd GI/: active bowel sounds, no abd pain or tenderness, soft, non distended Extremities: normal range of motion, normal strength, non tender Neuro/Psych: alert and oriented x 3, normal mood and affect Skin: normal color, dry Results & Data Vital Signs (Past 12 Hours) Vital Signs Temp Pulse Resp BP Pulse Ox 02/22/19 14:51 36.8 C 74 16 111/65 97
[2019-02-23] MEDS: LEVOTHYROXINE SODIUM 137 MCG TABLET PO SCH (08:10)
[2019-02-23] MEDS: ASCORBIC ACID 500 MG TAB PO SCH (08:40)
[2019-02-23] MEDS: FUROSEMIDE 80 MG TAB PO SCH (08:41)
[2019-02-23] MEDS: PANTOprazole 40 MG TAB PO SCH (08:41)
[2019-02-23] MEDS: CHOLECALCIFEROL 1,000 UNITS TAB PO SCH (08:41)
[2019-02-23] MEDS: ASPIRIN 325 MG ECTAB PO SCH (08:41)
[2019-02-23] MEDS: ALLOPURINOL 100 MG TAB PO SCH ×2 (08:41→13:09)
[2019-02-23] MEDS: CALCIUM 600MG + VIT D 400 IU TAB PO SCH (08:41)
[2019-02-23] MEDS: DOCUSATE SODIUM 100 MG CAP PO SCH (08:41)
[2019-02-23] MEDS: TRIAMCINOLONE ACET 0.025% CR 15 GM TUBE TOP SCH (08:42)
[2019-02-23] MEDS: GABAPENTIN 300 MG CAP PO SCH ×2 (08:42→13:09)
[2019-02-23] MEDS: OMEGA-3 (PURIFIED FISH OIL) 1 GM CAP PO SCH (08:43)
[2019-02-23] MEDS: TOCOPHERYL, DL-ALPHA 400 UNITS CAP PO SCH (08:43)
[2019-02-23] MEDS: DICLOFENAC SOD 1% GEL 100 GM TUBE EXT PRN (17:23)
--- NOTE | 2019-03-02 14:11 | Discharge Summary ---
Date of Service February 23, 2019 Admission HPI Per Admitting Provider Morbidly obese 79-year-old female who fell at home suffering a right ankle sprain. She is morbidly obese and cannot ambulate at this time. She also has evidence of worsening edema and erythema of both lower extremities below the knees. This could be cellulitis. She is mildly volume depleted with mild acute kidney injury. Creatinine has risen to 1.3. This may have been due to recent Bactrim therapy for a UTI which appears to have been treated. She was also placed on nifedipine earlier this year for suspected vasospasm of the circulation in her legs. Nifedipine may be aggravating the underlying leg edema and will be discontinued. She will be admitted for further evaluation and treatment. Occupational Therapy and physical therapy have been requested. Case management will need to get involved with this case. Principal Diagnosis Ambulatory dysfunction Discharge Exam General: no distress Eyes: normal inspection, PERLL Respiratory: chest non tender, clear to auscultation, normal breath sounds, no respiratory distress, no accessory muscle use Cardiac: regular rate and rhythm, no rub or gallop, no murmur, no edema, no jvd GI/: active bowel sounds, no abd pain or tenderness, soft, non distended Extremities: normal range of motion, normal strength, non tender Neuro/Psych: alert and oriented x 3, normal mood and affect Skin: normal color, dry Discharge Data Allergies Allergy/AdvReac Type Severity Reaction Status Date / Time adhesive AdvReac Unknown Bandaids - Verified 02/19/19 19:22 Unknown Consultations 02/17/19 16:08 ED Decision to Admit Stat Hospital Course (1) Cellulitis of both lower extremities: - Worsening erythema in b/l lower extremities on admission - given the increasing edema and recent Bactrim use this is likely stasis dermatitis rather than cellulitis - no leukocytosis, no growth in BC, will dc Rocephin - resume home furosemide dosing. Appears to be likely chronic venous stasis. noted below. (2) Venous insufficiency: - Possibly worsened by Nifedipine? Currently on hold - Utilizes AMI wraps at home and can continue here for mild compression - unable to tolerate LEXI hose (3) Fall: - Mechanical in nature - reports this was related to inability to lift herself off the toilet and her daughters were not able to lift her at that time and she sprained her ankle - Reports no other injuries - PT/OT - appreciate continuing assessments/interventions - considering [facility] for rehab . (4) Right ankle sprain: - STABLE; No evidence of fx - Supportive care; pain control PRN (5) Ambulatory dysfunction: - Possibly multifactorial between recent UTI, lower extremity edema, deconditioning - PT/OT evaluations (6) CHAKA (acute kidney injury): - Possibly medication induced from recent Bactrim use? - Resolved with gentle hydration - resume furosemide (7) Hypothyroidism: - STABLE - Levothyroxine 137 mcg daily (8) Morbid obesity: - BMI greater than 40. Weight loss encouraged/recommended (9) DVT prophylaxis: Enoxaparin Patient received placement for rehab. Total Time Total Time Spent Total Time Spent (In Minutes): 32 Total Time Includes: Examination of the Patient, Discharge Planning and Medication Reconciliation Discharge Plan Discharge Items Patient Disposition: Transfer [facility] Reason For Visit: MECHANICAL FALL,AMBULATORY DYSFUNCTION,POSSIBLE CE Discharge Diagnosis: Ambulatory dysfunction Discharge Goals: Decrease discomfort Activity: Resume your previous activity Non-emergency contact: Primary Care Provider Call non-emergency contact if: you have any medication questions Follow-up/Referrals: Maria Esther Abdullahi DO [Primary Care Provider] - Diet: Heart Healthy Addtl Provider Instructions: Will recommend followup with PCP in 1-2 weeks. Prescriptions: New diclofenac sodium [Voltaren] 1 % Gel 1 applic EXT Q12 PRN (Reason: pain) Qty: 1 RF: 0 Continued vitamin E 1,000 unit Capsule 1,000 unit PO DAILY RF: 0 potassium chloride 10 mEq Tablet Extended Release 10 meq PO DAILY RF: 0 pramipexole 0.5 mg Tablet 0.5 mg PO HS RF: 0 calcium carbonate [Calcium 600] 600 mg calcium (1,500 mg) Tablet 600 mg PO DAILY RF: 0 triamcinolone acetonide 0.025 % Cream 1 applic TOPICAL BID RF: 0 gabapentin 300 mg Capsule 300 mg PO TID RF: 0 omega [id number]-fish oil [Fish Oil] 1,000 mg (120 mg-180 mg) Capsule 1 cap PO DAILY RF: 0 furosemide [Lasix] 40 mg Tablet 80 mg PO BID RF: 0 ascorbic acid (vitamin C) 1,000 mg Tablet 1 g PO DAILY RF: 0 aspirin 325 mg Tablet 325 mg PO DAILY RF: 0 allopurinol [Zyloprim] 100 mg Tablet 100 mg PO TID RF: 0 docusate sodium 100 mg Tablet 200 mg PO DAILY RF: 0 cholecalciferol (vitamin D3) [Vitamin D3] 1,000 unit Capsule 1,000 unit PO DAILY RF: 0 Prilosec OTC 20 mg Tablet,Delayed Release (Dr/Ec) 40 mg PO DAILY RF: 0 levothyroxine 137 mcg Capsule 137 mcg PO DAILY RF: 0 Discontinued sulfamethoxazole-trimethoprim 800-160 mg tablet 1 tab PO BID RF: 0 nifedipine 30 mg tablet extended release 30 mg PO DAILY Qty: 30 RF: 6 Stand-Alone Forms: [facility] Discharge Orders: Discharge Order (Routine); Ordered 02/23/19 Ordered By: Lenny Leonard Skilled Items Patient informed of condition?: Yes DNR: No Discharge Level of Care: Skilled Communicable Disease: No Discharge Prognosis: Stable Admission Data Admit Date/Time: 02/17/19 16:57 Attending Provider: Lenny Leonard Admit Provider: Ronnie Lo Primary Care Provider: Maria Esther Abdullahi Service: Medical Other Interventions: Discharge Summary Assessment (RN) Last Done: 02/23/19 16:33 DC Date/Time DO NOT enter until pt leaves facility: 02/23/19 18:22
== END 2019-02-23 18:22 | DRG 603 ==
LOC: ED 11:06 → 4E 16:57 → SUATTDRO 16:57 → 4E 18:06
DX: E66.01 Morbid (severe) obesity due to excess calories; E03.9 Hypothyroidism, unspecified; N17.9 Acute kidney failure, unspecified; X58.XXXA Exposure to other specified factors, initial encounter; S93.401A Sprain of unspecified ligament of right ankle, initial encounter; R26.9 Unspecified abnormalities of gait and mobility; L03.113 Cellulitis of right upper limb; L03.114 Cellulitis of left upper limb

== ENCOUNTER 2019-03-15 23:52 | Inpatient (IN) ==
[2019-03-16] MEDS ORDERED: LORazepam 0.5 MG/1 ML VIAL IV STA (00:37)
[2019-03-16] MEDS ORDERED: CIPROFLOXACIN HCL 0.3% OP SOLN 2.5 ML BTL OP ONE (00:42)
[2019-03-16] MEDS ORDERED: SODIUM CHLORIDE 0.9% 1000ML 1,000 ML IV SCH (00:45)
[2019-03-16 01:12] LABS: Basophils # (auto) 0.01 K/uL (0-0.2); Basophils % (auto) 0.1 %; Eosinophils # (auto) 0.29 K/uL (0-0.5); Eosinophils % (auto) 2.7 %; Hematocrit (blood only) 38.7 % (37-47); Hemoglobin 11.8 g/dL (12.0-16.0); Immature Granulocytes # (auto) 0.03 K/uL (0.00-0.02); Immature Granulocytes % (auto) 0.3 %; Lymphocytes # (auto) 1.37 K/uL (1.2-3.4); Lymphocytes % (auto) 12.8 %; Mean Corpuscular Hgb Conc 30.5 g/dL (32-36); Mean Corpuscular Volume 85.8 fL (80-100); Mean Platelet Volume 11.3 fL (7.4-10.4); Monocytes # (auto) 0.87 K/uL (0.11-0.59); Monocytes % (auto) 8.2 %; Neutrophils % (auto) 75.9 %; Platelet Count 290 K/uL (130-400); RDW Standard Deviation 59.3 fL (36.4-46.3); Red Blood Count 4.51 M/uL (4.2-5.4); White Blood Count 10.67 K/uL (4.8-10.8)
[2019-03-16 01:25] LABS: Base Excess VBG 4.8 mEq/L; HCO3 VBG 33 mmol/L; PCO2 VBG 68 mmHg (38-50); PO2 VBG 31 mmHg; pH VBG 7.31 (7.36-7.41)
[2019-03-16 01:31] LABS: Alanine Aminotransferase 35 U/L (12-78); Albumin Level 3.2 gm/dl (3.4-5.0); Aspartate Aminotransferase 65 U/L (15-37); BUN Creatinine Ratio 22.8 (10-20); Blood Urea Nitrogen 24 mg/dl (7-18); Calcium 8.2 mg/dl (8.5-10.1); Carbon Dioxide 32 mmol/L (21-32); Chloride 104 mmol/L (98-107); Creatinine Clr Calc Pharmacy 51.6 ml/min; Est GFR (African American) 58.5; Est GFR (Non-African American) 50.5; Glucose 133 mg/dl (70-99); Magnesium 2.4 mg/dl (1.8-2.4); Sodium 140 mmol/L (136-145)
[2019-03-16 01:42] LABS: Albumin Globulin Ratio 0.8 (0.9-2); Alkaline Phosphatase 206 U/L (45-117); Bilirubin,Total 0.6 mg/dl (0.2-1); Globulin 4.2 gm/dl (2.5-4.0); NT Pro B Type Natriuretic Pept 187 pg/ml (0-1800); Total Protein 7.4 gm/dl (6.4-8.2); Troponin I < 0.015 ng/ml (0-0.045)
[2019-03-16] MEDS ORDERED: OPTIRAY 320 125ml IV PRN (02:34)
[2019-03-16] MEDS ORDERED: PIPERACILLIN/TAZOBACTAM 4.5 GM/120 ML BAG IV ONE (02:40)
[2019-03-16] MEDS ORDERED: VANCOMYCIN CONSULT ACTIVE PRN ×2 (02:40→05:37)
[2019-03-16] MEDS ORDERED: ALBUT/IPRATROP 3MG/0.5MG NEB 3 ML VIAL NEB STA (02:40)
[2019-03-16] MEDS ORDERED: PIPERACILL/TAZOBAC CONSULT ACTIVE PRN ×2 (02:40→05:37)
[2019-03-16] MEDS ORDERED: VANCOMYCIN HCL 2,250 MG in SODIUM CHLORIDE 0.9% 500 ML IV ONE (02:40)
--- NOTE | 2019-03-16 04:39 | History & Physical Report ---
Date of Service March 16, 2019 Assessment & Plan (1) HCAP (healthcare-associated pneumonia): 79-year-old female with history of morbid obesity, DM2, HTN, HLD, hypothyroidism, peripheral vascular disease, chronic venous insufficiency, GERD, anxiety, depression, gout, RLS, osteoarthritis presents with fever and cough x3 days. Concerning for HCAP. Sepsis in the setting of HCAP Presented with cough and fever x3 days Recently hospitalized and discharged on 02/23/2019 after which she was in rehab at [facility] until yesterday Tachypneic to 26 and tachycardic to 116 on presentation, afebrile, no WBC elevation Satting 100% on 6 L oxygen mask CTA chest: No PE, right lower lobe atelectasis/consolidation, left lower lobe small focal consolidation concerning for pneumonia, mild bronchial wall thickening concerning for bronchitis/bronchiolitis, pulmonary arterial hy pertension, mild cardiomegaly VBG: pH 7.3, CO2 68, O2 31, HCO3 33 Lactate 0.9 Troponin negative, BNP 187 Received Vanc and Zosyn in the ED Continue Vanc and Zosyn ABG ordered Hypertension/hyperlipidemia/peripheral artery disease/chronic venous stasis Continue home aspirin and Lasix Hold nifedipine as as stopped on discharge 02/23/2019 History of DM 2 Not on any medications at home BSG per unit protocol, SSI Anemia Hemoglobin stable at 11.8 Hemoglobin was 11.2 on 02/22/2019 Continue to monitor GERD Continue Prilosec History of gout Continue allopurinol RLS Continue pramipexole Osteoarthritis Continue Voltaren gel DVT prophylaxis: Lovenox Code: Full per discussion with daughter Dispo: PCU telemetry (2) Type 2 diabetes mellitus: (3) Hypertension: (4) Hypercholesteremia: (5) Fatty liver: (6) Depression: (7) Arthritis: (8) Anxiety: (9) Hypothyroidism: (10) Morbid obesity: History of Present Illness Chief Complaint: Fever and cough Primary Care Provider: Maria Esther Abdullahi DO 79-year-old female with history of DM2, HTN, HLD, hypothyroidism, peripheral vascular disease, chronic venous insufficiency, GERD, anxiety, depression, gout, RLS, osteoarthritis presents with fever and cough x3 days. Per daughter she was at halfway, [facility] and was having on and off fever and cough which was thought to be a viral etiology. She returned from [facility] yesterday and is complaining of difficulty breathing as well. Patient difficult to arouse thus history and review of systems limited. Of note: She was hospitalized from 02/17/2019 to 02/23/2019 status post fall for right ankle sprain and was discharged to rehab for deconditioning. Allergies Allergy/AdvReac Type Severity Reaction Status Date / Time adhesive AdvReac Unknown Bandaids - Verified 03/16/19 02:54 Unknown Home Medications Home Medications Medication Instructions Recorded Confirmed Type Prilosec OTC 40 mg PO DAILY 10/26/18 03/16/19 History allopurinol [Zyloprim] 100 mg PO TID 10/26/18 03/16/19 History ascorbic acid (vitamin C) 1 g PO DAILY 10/26/18 03/16/19 History aspirin 325 mg PO DAILY 10/26/18 03/16/19 History cholecalciferol (vitamin D3) 1,000 unit PO DAILY 10/26/18 03/16/19 History [Vitamin D3] docusate sodium 200 mg PO DAILY 10/26/18 03/16/19 History furosemide [Lasix] 80 mg PO BID 10/26/18 03/16/19 History levothyroxine 137 mcg PO DAILY 10/26/18 03/16/19 History calcium carbonate [Calcium 600] 600 mg PO DAILY 02/17/19 03/16/19 History gabapentin 300 mg PO TID 02/17/19 03/16/19 History omega 2-eui-jvl-fish oil [Fish Oil] 1 cap PO DAILY 02/17/19 03/16/19 History potassium chloride 10 meq PO DAILY 02/17/19 03/16/19 History pramipexole 0.5 mg PO HS 02/17/19 03/16/19 History triamcinolone acetonide 1 applic TOPICAL BID 02/17/19 03/16/19 History vitamin E 1,000 unit PO DAILY 02/17/19 03/16/19 History diclofenac sodium [Voltaren] 1 applic EXT Q12 PRN #1 g 02/23/19 03/16/19 Rx nifedipine ER 30 mg 30 mg PO DAILY #30 tab 03/07/19 03/16/19 History tablet,extended release Past Med/Surg History Medical History Type 2 diabetes mellitus (Acute) Hypertension (Acute) Hypercholesteremia (Acute) Fatty liver (Acute) Depression (Acute) Arthritis (Acute) Anxiety (Acute) Adrenal adenoma (Acute) Morbid obesity (Chronic) CHAKA (acute kidney injury) (Acute) Ambulatory dysfunction (Acute) Right ankle sprain (Acute) Fall (Acute) Venous insufficiency (Chronic) Cellulitis of both lower extremities (Acute) Chronic venous insufficiency (Acute) GERD (gastroesophageal reflux disease) (Acute) Gout (Acute) Hypothyroid (Acute) PAD (peripheral artery disease) (Acute) RLS (restless legs syndrome) (Acute) Surgical History History of bilateral knee replacement (Acute) History of cholecystectomy (Acute) History of hysterectomy (Acute) Social History Preferred Language: Thai Communication Ability: Effective Beliefs That Will Affect Care: None Current Living Situation: Family Other Information That Helps Us Care for You: No Feels Safe at Home: Yes Safety Concerns: Feels Safe At This Time Smoking Status: Former smoker Tobacco Type: cigarettes Second Hand Exposure: No Hx Alcohol Use: No Hx Substance Use: No Review of Systems Review of Systems: Limited due to patient sleeping and being difficult to arouse Physical Exam Physical Exam: General: Patient sleeping when evaluated Neuro: Unresponsive to verbal stimuli or sternal rub Pulm: diffuse rhonchi, equal breath sounds bilaterally, mild respiratory distress CV: RRR, no m/r/g Abdomen:+BS, no TTP in all quadrants, obese LE: Stalin wrap in place for chronic venous stasis Results & Data Vital Signs (Past 12 Hours) Vital Signs Temp Pulse Pulse Resp BP BP Pulse Ox 03/16/19 03:38 106 H 15 91/58 L 100 03/16/19 02:52 113 H 20 100 03/16/19 01:30 110 H 17 111/56 L 96 03/16/19 01:01 109 H 15 03/16/19 00:37 94 03/16/19 00:31 109 H 13 94 03/16/19 00:01 112 H 20 94 03/15/19 23:59 113 H 26 H 92 03/15/19 23:57 116 H 23 112/56 L 86 L 03/15/19 23:50 36.7 C 114 H 24 112/56 L 89 L Laboratory Results Abnormal lab results 03/16/19 03/16/19 03/16/19 Range/Units 00:53 00:53 01:13 Hgb 11.8 L (12.0-16.0) g/dL MCHC 30.5 L (32-36) g/dL RDW Std Deviation 59.3 H (36.4-46.3) fL RDW Coeff of Josue 19.0 H (11.5-14.5) % MPV 11.3 H (7.4-10.4) fL Immature Gran # (Auto) 0.03 H (0.00-0.02) K/uL Neut # (Auto) 8.10 H (1.4-6.5) K/uL [place] # (Auto) 0.87 H (0.11-0.59) K/uL VBG pH 7.31 L (7.36-7.41) VBG pCO2 68 H (38-50) mmHg BUN 24 H (7-18) mg/dl BUN/Creatinine Ratio 22.8 H (10-20) Glucose 133 H (70-99) mg/dl Calcium 8.2 L (8.5-10.1) mg/dl AST 65 H (15-37) U/L Alkaline Phosphatase 206 H (45-117) U/L Albumin 3.2 L (3.4-5.0) gm/dl Globulin 4.2 H (2.5-4.0) gm/dl Albumin/Globulin Ratio 0.8 L (0.9-2) Medications Administered Current Inpatient Medications Vancomycin HCl 2,250 mg/ (Sodium Chloride) 545 mls @ 200 mls/hr IV NOW ONE; Protocol Stop: 03/16/19 05:23 Last Admin: 03/16/19 03:40 Dose: 200 mls/hr Documented by: Ioversol (Optiray 320 125ml) 125 ml IV ONCE PRN PRN Reason: Interaction Checking Stop: 03/20/19 02:33 Last Admin: 03/16/19 02:35 Dose: 100 ml Documented by: Miscellaneous Information (Consult) 1 ea N/A UD PRN PRN Reason: Consult Stop: 04/15/19 02:39 Miscellaneous Information (Consult) 1 ea N/A UD PRN PRN Reason: Consult Stop: 04/15/19 02:39 Code Status & VTE Plan Code Status Full per discussion with daughter VTE Prophylaxis Plan VTE Prophylaxis will be ordered: Yes Supervising Physician Co-Signing Physician Notes Attending addendum: I have physically seen this patient, have supervised the medical residents activities, and agree with the H&P unless as otherwise noted. Assessment and Plan: Healthcare associated pneumonia- CTA of chest negative for PE, but did show pneumonia involving both lower lobes, and associated bronchitis/bronchiolitis. Vancomycin IV and Zosyn IV. Duonebs every 4 hours while awake and every 2 hours when necessary. Pulmicort Respules 0.5 mg inhaled twice daily. Presently on 6 L oxygen mask with O2 sat 100%. Would decrease oxygen concentration target O2 sat 94-95%. Order ABG. Remainder of orders and notations as noted. PG Care Time/CCT Total # of Minutes Spent Total Time Spent with Patient: Total time spent is greater than 50% in coordination of care (as documented) at patient's floor/unit and/or counseling patient: Resident Activity Tracking Resident Involvement: Resident Care Provided Care Provided: Adult Hospital Medicine
[2019-03-16] MEDS ORDERED: DICLOFENAC SOD 1% GEL 100 GM TUBE EXT PRN (05:37)
[2019-03-16] MEDS ORDERED: VANCOMYCIN HCL 1,000 MG in SODIUM CHLORIDE 0.9% 250 ML IV SCH (05:37)
[2019-03-16] MEDS ORDERED: ACETAMINOPHEN 325 MG TAB PO PRN (05:37)
[2019-03-16] MEDS: LEVOTHYROXINE SODIUM 137 MCG TABLET PO SCH (06:10)
[2019-03-16] MEDS ORDERED: PNEUMOCOCCAL ADMINISTRATION CHARGE ONE (06:15)
[2019-03-16] MEDS ORDERED: PNEUMOCOCCAL POLYSACCHARIDES 25 MCG/0.5 ML VIAL/SYR IM ONE (06:15)
[2019-03-16] MEDS: LACTATED RINGER'S 1,000 ML IV SCH ×2 (06:20→19:54)
--- NOTE | 2019-03-16 06:32 | CT Scan Report ---
CT lumbar spine wo con CT DOSE: HISTORY: Pain Low lumbar spine pain TECHNIQUE: Multiaxial CT images of the lumbar spine were performed and reformatted in the sagittal an d coronal plane without the use of contrast. A dose lowering technique was utilized adhering to the principles of ALARA. COMPARISON: None. FINDINGS: Severe degenerative disc changes throughout. Reactive sclerosis of vertebral endplates. Con siderable anterior reactive osteophytic change. Moderate multilevel degenerative disc and narrowing of the spinal canal change. IMPRESSION: Severe degenerative intervertebral disc change. No evidence for a compression deformity. The above report was generated using voice recognition software. It may contain grammatical, syntax or spelling errors. Electronically signed by: Toni Watts M.D. 03/16/2019 6:31 AM
[2019-03-16 06:40] LABS: Base Excess ABG 2.1 mEq/L (-9-1.8); HCO3 ABG 30 mmol/L (19-24); PCO2 ABG 64 mmHg (35-46); PO2 ABG 121 mm/Hg (80-95); pH ABG 7.29 (7.35-7.45)
[2019-03-16 06:41] LABS: Allen Test Pos (Pos)
--- NOTE | 2019-03-16 06:49 | CT Scan Report ---
CT ANGIOGRAM OF THE CHEST CLINICAL HISTORY: SOB. Cough. RESPONSIVE PATIENT. POSSIBLE PULMONARY EMBOLUS. COMPARISON STUDY: Chest x-ray dated 03/16/2019 TECHNIQUE: Following the IV administration of 100 mL of Optiray-320, CT angiogram of the thorax was p erformed from the thoracic inlet to the lung bases utilizing the pulmonary embolus protocol. Images a re reviewed in the axial, sagittal, and coronal planes. IV contrast was administered without complica tion. MIP imaging was performed. A dose lowering technique was utilized adhering to the principles o f ALARA. CT DOSE: 2395.43 mGy.cm FINDINGS: There are mildly enlarged left hilar lymph nodes, and borderline enlarged mediastinal lymph nodes. There was no evidence of thoracic aortic dilatation. There is suboptimal lower lobe pulmonary opacification. No definite emboli are visualized. No pleural effusions are visualized. There are right lower lobe airspace opacities, atelectatic versus infectious/inflammatory. There is a 2 cm nodular opacity within the left lower lobe. There are areas of mucous plugging. A two-month fol low-up CT scan is recommended. There are advanced arthritic changes present within the shoulders. IMPRESSION: 1. Technically limited study secondary to respiratory motion artifact 2. No definite evidence of acute pulmonary embolism 3. Right lower lobe airspace opacities, atelectatic versus infectious/inflammatory 4. 2 cm nodular opacity within the left lower lobe 5. Areas of mucous plugging 6. Mild left hilar adenopathy 7. A two-month follow-up CT scan is recommended to help exclude an underlying neoplastic process Electronically signed by: Ramiro Pollock M.D. 03/16/2019 6:47 AM
[2019-03-16] MEDS: ALBUT/IPRATROP 3MG/0.5MG NEB 3 ML VIAL NEB SCH ×5 (06:56→23:05)
--- NOTE | 2019-03-16 07:00 | Emergency Department Note ---
History of Present Illness General Chief complaint: Back Injury/Pain Stated complaint: BACK PAIN Time Seen by Provider: 03/16/19 00:16 History of Present Illness Maximum Pain Intensity: 2 This is a 79-year-old female presenting to the emergency department for evaluation of difficulty breathing worsening over the past 2 to 3 days. The patient was recently admitted to this facility and discharged to a custodial facility. Evidently the patient was discharged from the custodial facility earlier today, and did voice that she had difficulty breathing prior to discharge. The patient was told that she had a cold follow-up with her primary care physician. The patient is having difficulty with breathing and with coughing. She is also complaining of low back pain that worsens with a cough. The patient is accompanied tonight by her daughter, who states her mother is worse than previous. The patient has had drainage from her right eye today. She does not report known fever, but also has not been checking. She does have some ambulatory difficulty at baseline. She did lose 28 pounds of weight over a few days in the custodial facility, presumably from water weight. The patient herself has a history of morbid obesity and diabetes. She rates her overall discomfort a 2/10. Home Medications Home Medications Medication Instructions Recorded Confirmed Type Prilosec OTC 40 mg PO DAILY 10/26/18 03/16/19 History allopurinol [Zyloprim] 100 mg PO TID 10/26/18 03/16/19 History ascorbic acid (vitamin C) 1 g PO DAILY 10/26/18 03/16/19 History aspirin 325 mg PO DAILY 10/26/18 03/16/19 History cholecalciferol (vitamin D3) 1,000 unit PO DAILY 10/26/18 03/16/19 History [Vitamin D3] docusate sodium 200 mg PO DAILY 10/26/18 03/16/19 History furosemide [Lasix] 80 mg PO BID 10/26/18 03/16/19 History levothyroxine 137 mcg PO DAILY 10/26/18 03/16/19 History calcium carbonate [Calcium 600] 600 mg PO DAILY 02/17/19 03/16/19 History gabapentin 300 mg PO TID 02/17/19 03/16/19 History omega 9-sbu-sja-fish oil [Fish Oil] 1 cap PO DAILY 02/17/19 03/16/19 History potassium chloride 10 meq PO DAILY 02/17/19 03/16/19 History pramipexole 0.5 mg PO HS 02/17/19 03/16/19 History triamcinolone acetonide 1 applic TOPICAL BID 02/17/19 03/16/19 History vitamin E 1,000 unit PO DAILY 02/17/19 03/16/19 History diclofenac sodium [Voltaren] 1 applic EXT Q12 PRN #1 g 02/23/19 03/16/19 Rx nifedipine ER 30 mg 30 mg PO DAILY #30 tab 03/07/19 03/16/19 History tablet,extended release Allergies Allergy/AdvReac Type Severity Reaction Status Date / Time adhesive AdvReac Unknown Bandaids - Verified 03/16/19 02:54 Unknown Past Med/Surg History Medical History Type 2 diabetes mellitus (Acute) Hypertension (Acute) Hypercholesteremia (Acute) Fatty liver (Acute) Depression (Acute) Arthritis (Acute) Anxiety (Acute) Adrenal adenoma (Acute) Morbid obesity (Chronic) CHAKA (acute kidney injury) (Acute) Ambulatory dysfunction (Acute) Right ankle sprain (Acute) Fall (Acute) Venous insufficiency (Chronic) Cellulitis of both lower extremities (Acute) Chronic venous insufficiency (Acute) GERD (gastroesophageal reflux disease) (Acute) Gout (Acute) Hypothyroid (Acute) PAD (peripheral artery disease) (Acute) RLS (restless legs syndrome) (Acute) Surgical History History of bilateral knee replacement (Acute) History of cholecystectomy (Acute) History of hysterectomy (Acute) Social History Preferred Language: Spanish Communication Ability: Effective Beliefs That Will Affect Care: None Current Living Situation: Family Other Information That Helps Us Care for You: No Feels Safe at Home: Yes Safety Concerns: Feels Safe At This Time Smoking Status: Former smoker Tobacco Type: cigarettes Second Hand Exposure: No Hx Alcohol Use: No Hx Substance Use: No Review of Systems A total of 10 systems reviewed and were otherwise negative Physical Exam Vital Signs Vital Signs - 24 hr 03/16/19 01:01 03/16/19 01:30 03/16/19 02:52 Pulse Rate 109 H 110 H Pulse Rate [Apical] 113 H Pulse Rate from SpO2 Sensor 110 H Respiratory Rate 15 17 20 Respiratory Effort / Characteristics Non-Labored Blood Pressure 111/56 L Blood Pressure [Right Arm] Blood Pressure Mean 74 Blood Pressure Mean [Right Arm] Pulse Oximetry 96 100 Oxygen Delivery Method Oxymask Oxygen Flow Rate 4 03/16/19 03:38 Pulse Rate Pulse Rate [Apical] 106 H Pulse Rate from SpO2 Sensor Respiratory Rate 15 Respiratory Effort / Characteristics Blood Pressure Blood Pressure [Right Arm] 91/58 L Blood Pressure Mean Blood Pressure Mean [Right Arm] 69 Pulse Oximetry 100 Oxygen Delivery Method Oxymask Oxygen Flow Rate 6 VITALS: Vitals are noted on the nurse's note and reviewed by myself. Vital signs with tachycardia and hypoxia GENERAL: Ill-appearing female who is breathing on my presentation to the room HEAD: Normocephalic atraumatic. EARS: External ear normal. External auditory canals clear, tympanic membranes pearly contreras without erythema or effusion bilaterally. EYES: Pupils equal round and reactive to light and accommodation. Right conjunctiva is injected with NOSE: Patent, turbinates without inflammation or discharge. MOUTH: Mucous membranes moist. Tonsils are not enlarged. Airway patent. HEART: Regular rate and rhythm without murmurs gallops or rubs. LUNGS: Generally clear in the upper fonseca. Scattered wheezing and bibasilar rales the lower fonseca ABDOMEN: Positive normal bowel sounds x 4. Soft, nontender, without masses or organomegaly. No guarding or rebound tenderness. MUSCULOSKELETAL: No muscle atrophy, erythema, or edema noted. Full range of motion in all extremities. No calf tenderness NEURO: Patient was alert and oriented to person place and time. CN II through XII grossly intact. Course Administered Medications Albuterol (Duoneb) 3 ml NEB Q4R AMANDEEP Stop: 04/15/19 07:59 Last Admin: 03/16/19 23:05 Dose: 3 ml Documented by: [id number] Admin: 03/16/19 18:57 Dose: 3 ml Documented by: [id number] Admin: 03/16/19 15:23 Dose: 3 ml Documented by: [id number] Admin: 03/16/19 11:22 Dose: 3 ml Documented by: [id number] Admin: 03/16/19 06:56 Dose: 3 ml Documented by: [id number] Allopurinol (Zyloprim) 100 mg PO TID AMANDEEP Stop: 04/15/19 08:59 Last Admin: 03/16/19 19:44 Dose: 100 mg Documented by: [id number] Admin: 03/16/19 13:47 Dose: Not Given Documented by: [id number] Admin: 03/16/19 09:49 Dose: Not Given Documented by: [id number] Ascorbic Acid (Vitamin C) 1,000 mg PO DAILY AMANDEEP Stop: 04/15/19 08:59 Last Admin: 03/16/19 09:48 Dose: Not Given Documented by: [id number] Aspirin (Ecotrin) 325 mg PO DAILY AMANDEEP Stop: 04/15/19 08:59 Last Admin: 03/16/19 09:47 Dose: Not Given Documented by: [id number] Diclofenac Sodium (Voltaren 1% Top) 1 appln EXT Q8H PRN PRN Reason: pain Stop: 04/15/19 05:36 Last Admin: 03/16/19 17:14 Dose: 1 appln Documented by: [id number] Docusate Sodium (Colace) 200 mg PO DAILY AMANDEEP Stop: 04/15/19 08:59 Last Admin: 03/16/19 09:47 Dose: Not Given Documented by: [id number] Enoxaparin Sodium (Lovenox) 40 mg SQ Q24H AMANDEEP Stop: 04/15/19 08:59 Last Admin: 03/16/19 09:25 Dose: 40 mg Documented by: [id number] Fish Oil (Petrolia-3 (Purified Fish Oil)) 1 gm PO DAILY AMANDEEP Stop: 04/15/19 08:59 Last Admin: 03/16/19 09:48 Dose: Not Given Documented by: [id number] Furosemide (Lasix) 80 mg PO BID17 AMANDEEP Stop: 04/15/19 08:59 Last Admin: 03/16/19 09:48 Dose: Not Given Documented by: [id number] Gabapentin (Neurontin) 300 mg PO TID AMANDEEP Stop: 04/15/19 08:59 Last Admin: 03/16/19 19:44 Dose: 300 mg Documented by: [id number] Admin: 03/16/19 13:47 Dose: Not Given Documented by: [id number] Admin: 03/16/19 09:49 Dose: Not Given Documented by: [id number] Lactated Ringer's (Lr) 1,000 mls @ 80 mls/hr IV .[id number] AMANDEEP Stop: 04/15/19 05:36 Last Admin: 03/16/19 19:54 Dose: 80 mls/hr Documented by: [id number] Infusion: 03/16/19 19:32 Dose: 0 mls/hr Documented by: [id number] Admin: 03/16/19 06:20 Dose: 80 mls/hr Documented by: [id number] Piperacillin Sod/Tazobactam (Sod 4.5 gm/ Dextrose) 120 mls @ 30 mls/hr IV Q8H AMANDEEP; Protocol Stop: 03/23/19 07:59 Last Admin: 03/16/19 23:48 Dose: 30 mls/hr Documented by: [id number] Infusion: 03/16/19 21:03 Dose: 0 mls/hr Documented by: [id number] Admin: 03/16/19 17:00 Dose: 30 mls/hr Documented by: [id number] Infusion: 03/16/19 13:47 Dose: 0 mls/hr Documented by: [id number] Admin: 03/16/19 09:25 Dose: 30 mls/hr Documented by: [id number] Vancomycin HCl 1,250 mg/ (Sodium Chloride) 275 mls @ 125 mls/hr IV Q18H AMANDEEP; Protocol Stop: 03/23/19 17:59 Last Infusion: 03/16/19 21:03 Dose: 0 mls/hr Documented by: [id number] Admin: 03/16/19 17:01 Dose: 125 mls/hr Documented by: [id number] Ioversol (Optiray 320 125ml) 125 ml IV ONCE PRN PRN Reason: Interaction Checking Stop: 03/20/19 02:33 Last Admin: 03/16/19 02:35 Dose: 100 ml Documented by: [id number] [facility]ine [facility] ([facility] S[facility]: 04/15/19 06:29 Last Admin: 03/16/19 06:10 Dose: Not Given Documented by: [id number] Multivitamins/Minerals (Caltrate Plus) 1 tab PO DAILY AMANDEEP Stop: 04/15/19 08:59 Last Admin: 03/16/19 09:47 Dose: Not Given Documented by: [id number] Nifedipine (Procardia Xl) 30 mg PO DAILY [facility] Stop: 04/15/19 08:59 Last Admin: 03/16/19 09:48 Dose: Not Given Documented by: [id number] Pantoprazole Sodium (Protonix) 40 mg PO DAILY AMANDEEP Stop: 04/15/19 08:59 Last Admin: 03/16/19 09:48 Dose: Not Given Documented by: [id number] Potassium Chloride (Klor-Con M10) 10 meq PO DAILY AMANDEEP Stop: 04/15/19 08:59 Last Admin: 03/16/19 09:48 Dose: Not Given Documented by: [id number] Pramipexole Dihydrochloride (Mirapex) 0.5 mg PO HS AMANDEEP Stop: 04/15/19 20:59 Last Admin: 03/16/19 19:44 Dose: 0.5 mg Documented by: [id number] Triamcinolone Acetonide (Kenalog 0.025%) 1 appln TOP BID AMANDEEP Stop: 04/15/19 08:59 Last Admin: 03/16/19 19:44 Dose: 1 appln Documented by: [id number] Admin: 03/16/19 09:50 Dose: Not Given Documented by: [id number] Vitamin D (Vitamin D3) 1,000 units PO DAILY AMANDEEP Stop: 04/15/19 08:59 Last Admin: 03/16/19 09:48 Dose: Not Given Documented by: [id number] Vitamin E (Vitamin E) 800 units PO DAILY AMANDEEP Stop: 04/15/19 08:59 Last Admin: 03/16/19 09:49 Dose: Not Given Documented by: [id number] Vitamin E (Vitamin E) 200 units PO DAILY AMANDEEP Stop: 04/15/19 08:59 Last Admin: 03/16/19 09:49 Dose: Not Given Documented by: [id number] Discontinued Medications Albuterol (Duoneb) 3 ml NEB NOW STA Stop: 03/16/19 02:41 Last Admin: 03/16/19 02:51 Dose: 3 ml Documented by: [id number] Ciprofloxacin (Ciloxan 0.3% Opth) 1 drops OP NOW ONE Stop: 03/16/19 00:43 Last Admin: 03/16/19 01:18 Dose: 1 drops Documented by: [id number] Lorazepam (Ativan) 0.5 mg in 1 mls @ 1 mls/min IV NOW STA Stop: 03/16/19 00:38 Last Admin: 03/16/19 01:18 Dose: 1 mls/min Documented by: [id number] Sodium Chloride (Nss 1000ml) 1,000 mls @ 333 mls/hr IV .Q3H1M AMANDEEP Stop: 03/16/19 03:45 Last Infusion: 03/16/19 04:22 Dose: 0 mls/hr Documented by: [id number] Admin: 03/16/19 01:20 Dose: 333 mls/hr Documented by: [id number] Piperacillin Sod/Tazobactam Sod (Zosyn) 4.5 gm in 120 mls @ 240 mls/hr IV NOW ONE Stop: 03/16/19 03:09 Last Infusion: 03/16/19 03:27 Dose: 0 mls/hr Documented by: [id number] Admin: 03/16/19 02:51 Dose: 240 mls/hr Documented by: [id number] Vancomycin HCl 2,250 mg/ (Sodium Chloride) 545 mls @ 200 mls/hr IV NOW ONE; Protocol Stop: 03/16/19 05:23 Last Infusion: 03/16/19 07:27 Dose: 0 mls/hr Documented by: [id number] Infusion: 03/16/19 05:30 Dose: 200 mls/hr Documented by: [id number] Infusion: 03/16/19 05:10 Dose: 0 mls/hr Documented by: [id number] Admin: 03/16/19 03:40 Dose: 200 mls/hr Documented by: [id number] Medical Decision Making Differential Diagnosis Differential diagnosis: Etiologies such as viral syndrome, otitis, pharyngitis, pneumonia, influenza, meningitis, urinary tract infection, septic arthritis, soft tissue infectious process, intra-abdominal process, sepsis, bacteremia, as well as others were entertained. Laboratory Data Result diagrams: 03/16/19 00:53 03/16/19 00:53 Lab Results 03/16/19 03/16/19 03/16/19 Range/Units 00:53 00:53 00:53 WBC 10.67 (4.8-10.8) K/uL RBC 4.51 (4.2-5.4) M/uL Hgb 11.8 L (12.0-16.0) g/dL Hct 38.7 (37-47) % MCV 85.8 (80-100) fL MCH 26.2 (25-34) pg MCHC 30.5 L (32-36) g/dL RDW Std Deviation 59.3 H (36.4-46.3) fL RDW Coeff of Josue 19.0 H (11.5-14.5) % Plt Count 290 (130-400) K/uL MPV 11.3 H (7.4-10.4) fL Immature Gran % (Auto) 0.3 % Neut % (Auto) 75.9 % Lymph % (Auto) 12.8 % Carlton % (Auto) 8.2 % Eos % (Auto) 2.7 % Baso % (Auto) 0.1 % Immature Gran # (Auto) 0.03 H (0.00-0.02) K/uL Neut # (Auto) 8.10 H (1.4-6.5) K/uL Lymph # (Auto) 1.37 (1.2-3.4) K/uL Carlton # (Auto) 0.87 H (0.11-0.59) K/uL Eos # (Auto) 0.29 (0-0.5) K/uL Baso # (Auto) 0.01 (0-0.2) K/uL VBG pH (7.36-7.41) VBG pCO2 (38-50) mmHg VBG pO2 mmHg VBG HCO3 mmol/L VBG O2 Saturation % VBG Base Excess mEq/L Sodium 140 (136-145) mmol/L Potassium 4.0 (3.5-5.1) mmol/L Chloride 104 (98-107) mmol/L Carbon Dioxide 32 (21-32) mmol/L Anion Gap 4.0 (3-11) BUN 24 H (7-18) mg/dl Creatinine 1.05 (0.6-1.2) mg/dl Est Cr Clr Drug Dosing 51.6 ml/min Est GFR ( Amer) 58.5 Est GFR (Non-Af Amer) 50.5 BUN/Creatinine Ratio 22.8 H (10-20) Glucose 133 H (70-99) mg/dl Lactate 0.9 (0.4-2.0) mmol/L Calcium 8.2 L (8.5-10.1) mg/dl Magnesium 2.4 (1.8-2.4) mg/dl Total Bilirubin 0.6 (0.2-1) mg/dl AST 65 H (15-37) U/L ALT 35 (12-78) U/L Alkaline Phosphatase 206 H (45-117) U/L Troponin I < 0.015 (0-0.045) ng/ml NT-Pro-B Natriuret Pep 187 (0-1800) pg/ml Total Protein 7.4 (6.4-8.2) gm/dl Albumin 3.2 L (3.4-5.0) gm/dl Globulin 4.2 H (2.5-4.0) gm/dl Albumin/Globulin Ratio 0.8 L (0.9-2) TSH 4.480 (0.300-4.500) uIu/ml 03/16/19 Range/Units 01:13 WBC (4.8-10.8) K/uL RBC (4.2-5.4) M/uL Hgb (12.0-16.0) g/dL Hct (37-47) % MCV (80-100) fL MCH (25-34) pg MCHC (32-36) g/dL RDW Std Deviation (36.4-46.3) fL RDW Coeff of Josue (11.5-14.5) % Plt Count (130-400) K/uL MPV (7.4-10.4) fL Immature Gran % (Auto) % Neut % (Auto) % Lymph % (Auto) % Carlton % (Auto) % Eos % (Auto) % Baso % (Auto) % Immature Gran # (Auto) (0.00-0.02) K/uL Neut # (Auto) (1.4-6.5) K/uL Lymph # (Auto) (1.2-3.4) K/uL Carlton # (Auto) (0.11-0.59) K/uL Eos # (Auto) (0-0.5) K/uL Baso # (Auto) (0-0.2) K/uL VBG pH 7.31 L (7.36-7.41) VBG pCO2 68 H (38-50) mmHg VBG pO2 31 mmHg VBG HCO3 33 mmol/L VBG O2 Saturation 60.0 % VBG Base Excess 4.8 mEq/L Sodium (136-145) mmol/L Potassium (3.5-5.1) mmol/L Chloride (98-107) mmol/L Carbon Dioxide (21-32) mmol/L Anion Gap (3-11) BUN (7-18) mg/dl Creatinine (0.6-1.2) mg/dl Est Cr Clr Drug Dosing ml/min Est GFR ( Amer) Est GFR (Non-Af Amer) BUN/Creatinine Ratio (10-20) Glucose (70-99) mg/dl Lactate (0.4-2.0) mmol/L Calcium (8.5-10.1) mg/dl Magnesium (1.8-2.4) mg/dl Total Bilirubin (0.2-1) mg/dl AST (15-37) U/L ALT (12-78) U/L Alkaline Phosphatase (45-117) U/L Troponin I (0-0.045) ng/ml NT-Pro-B Natriuret Pep (0-1800) pg/ml Total Protein (6.4-8.2) gm/dl Albumin (3.4-5.0) gm/dl Globulin (2.5-4.0) gm/dl Albumin/Globulin Ratio (0.9-2) TSH (0.300-4.500) uIu/ml Imaging Data Radiologist's Impression: SINGLE VIEW CHEST CLINICAL HISTORY: Cough and dyspnea. FINDINGS: An AP, portable, upright chest radiograph is compared to study dated 02/17/2019. The examination is degraded by portable technique and patient rotation. The heart is mildly enlarged and there is atherosclerotic calcif ication of the thoracic aorta. The pulmonary vasculature is noncongested. There is chronic elevation of the right hemidiaphragm and bibasilar opacities. No airspace consolidation or large pleural effusion is identified. No pneumothorax is seen. The skeletal structures are osteopenic. The bony thorax is grossly intact. Advanced arthritic change and deformity is seen in the shoulders. Calcified joint bodies are seen bilaterally. Degenerative change and scoliosis are noted in the thoracic spine. IMPRESSION: 1. Cardiac enlargement without radiographic evidence of congestive failure. 2. Bibasilar airspace opacities likely represent atelectasis. Correlate clinically for evidence of a superimposed infectious/inflammatory pneumonitis. CT ANGIOGRAM OF THE CHEST CLINICAL HISTORY: SOB. Cough. RESPONSIVE PATIENT. POSSIBLE PULMONARY EMBOLUS. COMPARISON STUDY: Chest x-ray dated 03/16/2019 TECHNIQUE: Following the IV administration of 100 mL of Optiray-320, CT angiogram of the thorax was performed from the thoracic inlet to the lung bases utilizing the pulmonary embolus protocol. Images are reviewed in the axial, sagittal, and coronal planes. IV contrast was administered without complication. MIP imaging was performed. A dose lowering technique was utilized adhering to the principles of ALARA. CT DOSE: 2395.43 mGy.cm FINDINGS: There are mildly enlarged left hilar lymph nodes, and borderline enlarged mediastinal lymph nodes. There was no evidence of thoracic aortic dilatation. There is suboptimal lower lobe pulmonary opacification. No definite emboli are visualized. No pleural effusions are visualized. There are right lower lobe airspace opacities, atelectatic versus infectious/inflammatory. There is a 2 cm nodular opacity within the left lower lobe. There are areas of mucous plugging. A two-month follow-up CT scan is recommended. There are advanced arthritic changes present within the shoulders. IMPRESSION: 1. Technically limited study secondary to respiratory motion artifact 2. No definite evidence of acute pulmonary embolism 3. Right lower lobe airspace opacities, atelectatic versus infectious/inflammatory 4. 2 cm nodular opacity within the left lower lobe 5. Areas of mucous plugging 6. Mild left hilar adenopathy 7. A two-month follow-up CT scan is recommended to help exclude an underlying neoplastic process CT lumbar spine wo con CT DOSE: HISTORY: Pain Low lumbar spine pain TECHNIQUE: Multiaxial CT images of the lumbar spine were performed and reformatted in the sagittal and coronal plane without the use of contrast. A dose lowering technique was utilized adhering to the principles of ALARA. COMPARISON: None. FINDINGS: Severe degenerative disc changes throughout. Reactive sclerosis of vertebral endplates. Considerable anterior reactive osteophytic change. Moderate multilevel degenerative disc and narrowing of the spinal canal change. IMPRESSION: Severe degenerative intervertebral disc change. No evidence for a compression deformity. ECG Data Additional Comments: Sinus tachycardia with occasional Premature ventricular complexes @108 bpm Rightward axis Possible Inferior infarct (cited on or before 16-MAR-2019) No significant change to previous MDM Narrative Physical exam and history were performed. Nursing notes, EMR, and Medication List were personally reviewed. Patient appears to have difficulty breathing worsening over the past few days. The patient has been in and out of the hospital as well as a custodial facility. On examination the patient appears ill. She is with obvious difficulty breathing and was placed on 6 L nasal cannula. At a minimum she appears to have a right conjunctivitis with copious mucoid drainage. She does have some crackles in the lower lung fonseca, and significant concern for pneumonia/sepsis exists. IV access was established and labs were obtained. Blood cultures were gathered. The patient chest x-ray was performed and reviewed by myself and radiology, and may show some atelectasis versus infiltrate. The patient does have a persistent cough and this is exacerbating back pain. Because of her history I did elect to perform a CT scan of both her chest and her lower back. The patient's blood work is as above and was reviewed. She does not have a significantly elevated white blood cell count or gross anemia, or significant electrolyte imbalance. She is with an elevated PCO2 at 68 on VBG. Troponin x1 is negative. Glucose is 133. Lactic acid is negative with blood cultures pending. CT scans of her chest and lumbar spine were performed, and reviewed as above. There is clinical concern for pneumonia. The patient case was discussed with my attending physician. She was provided Ciloxan for what appears to be a conjunctivitis. She was also started on vancomycin and Zosyn for what is presumed to be a hospital-acquired pneumonia. The case was ultimately discussed with the on-call [facility] hospitalist, who agreed to evaluate the patient here in the department. Please see their dictation for further patient course, plan, and disposition. The chart was completed utilizing [employer] Speech Voice Recognition Software. Grammatical errors, random word insertions, pronoun errors, and incomplete sentences are an occasional consequence of this system due to software limitations, ambient noise, and hardware issues. Any formal questions or concerns about the content, text, or information contained within the body of this dictation should be directly addressed to the provider for clarification. . Impression & Plan HCAP (healthcare-associated pneumonia), SOB (shortness of breath), Conjunctivitis Discharge Plan Visit Data *Final* Discharge Date/Time: 03/16/19 04:48 Chief Complaint: Back Injury/Pain Stated Complaint: BACK PAIN ED Provider: Danny Pepe ED Midlevel Provider: Buddy Torres Discharge Problem: HCAP (healthcare-associated pneumonia), SOB (shortness of breath), Conjunctivitis Patient Disposition: Admitted As Inpatient Discharge Instructions Interventions: ED Discharge Assessment Last Done: 03/16/19 04:48
--- NOTE | 2019-03-16 07:10 | XRay Report ---
SINGLE VIEW CHEST CLINICAL HISTORY: Cough and dyspnea. FINDINGS: An AP, portable, upright chest radiograph is compared to study dated 02/17/2019. The examina tion is degraded by portable technique and patient rotation. The heart is mildly enlarged and there is atherosclerotic calcification of the thoracic aorta. The pulmonary vasculature is noncongested. T here is chronic elevation of the right hemidiaphragm and bibasilar opacities. No airspace consolidati on or large pleural effusion is identified. No pneumothorax is seen. The skeletal structures are oste openic. The bony thorax is grossly intact. Advanced arthritic change and deformity is seen in the marce ulders. Calcified joint bodies are seen bilaterally. Degenerative change and scoliosis are noted in t he thoracic spine. IMPRESSION: 1. Cardiac enlargement without radiographic evidence of congestive failure. 2. Bibasilar airspace opacities likely represent atelectasis. Correlate clinically for evidence of a superimposed infectious/inflammatory pneumonitis. Electronically signed by: Sd Abdalla M.D. 03/16/2019 7:09 AM
[2019-03-16] MEDS ORDERED: FUROSEMIDE 40 MG TAB PO SCH (09:00)
[2019-03-16] MEDS: PIPERACILLIN/TAZOBACTAM 4.5 GM in DEXTROSE 5% 100 ML IV SCH ×3 (09:25→23:48)
[2019-03-16] MEDS: ENOXAPARIN INJ 40 MG/0.4 ML SYR SQ SCH (09:25)
[2019-03-16] MEDS: DOCUSATE SODIUM 100 MG CAP PO SCH (09:47)
[2019-03-16] MEDS: CALCIUM 600MG + VIT D 400 IU TAB PO SCH (09:47)
[2019-03-16] MEDS: ASPIRIN 325 MG ECTAB PO SCH (09:47)
[2019-03-16] MEDS: PANTOprazole 40 MG TAB PO SCH (09:48)
[2019-03-16] MEDS: CHOLECALCIFEROL 1,000 UNITS TAB PO SCH (09:48)
[2019-03-16] MEDS: ASCORBIC ACID 500 MG TAB PO SCH (09:48)
[2019-03-16] MEDS: POTASSIUM CHLORIDE 10 MEQ TABCR PO SCH (09:48)
[2019-03-16] MEDS: NIFEdipine EXTENDED REL 30 MG TABCR PO SCH (09:48)
[2019-03-16] MEDS: OMEGA-3 (PURIFIED FISH OIL) 1 GM CAP PO SCH (09:48)
[2019-03-16] MEDS: ALLOPURINOL 100 MG TAB PO SCH ×3 (09:49→19:44)
[2019-03-16] MEDS: TOCOPHERYL, DL-ALPHA 100 UNITS CAP PO SCH (09:49)
[2019-03-16] MEDS: GABAPENTIN 300 MG CAP PO SCH ×3 (09:49→19:44)
[2019-03-16] MEDS: TOCOPHERYL, DL-ALPHA 400 UNITS CAP PO SCH (09:49)
[2019-03-16] MEDS: TRIAMCINOLONE ACET 0.025% CR 15 GM TUBE TOP SCH ×2 (09:50→19:44)
[2019-03-16] MEDS ORDERED: KETOROLAC TROMETHAMINE 15 MG/ML VIAL IV PRN (14:13)
--- NOTE | 2019-03-16 15:22 | Pharmacy Report ---
Pharmacy Abx Initial Consult - Date of Service March 16, 2019 - Pharmacy Dosing Scope Date of Consult: 03/16/19 Consultation requested by: Dr. Jacobson Pharmacy is consulted to initiate Vancomycin IV/PO dosing therapy, order appropriate labs and adjust drug dose/frequency. - Subjective The patient is a 79 year old F admitted on 03/16/19 04:27. - Objective Height: 5 ft 2 in Weight: 113 kg Vital Signs (Past 12hrs): Vital Signs Temp Pulse Resp BP Pulse Ox 03/16/19 15:02 36.9 C 89 24 133/77 98 03/16/19 11:22 85 16 95 03/16/19 10:53 36.8 C 87 20 107/62 100 03/16/19 07:00 36.8 C 91 H 20 115/81 98 03/16/19 06:57 89 16 98 03/16/19 05:10 36.7 C 101 H 20 138/83 100 03/16/19 03:38 106 H 15 91/58 L 100 Lab Results (24hrs): Laboratory Tests (24 Hours) 03/16/19 03/16/19 00:53 00:53 WBC 10.67 Neut # (Auto) 8.10 H Creatinine 1.05 Est Cr Clr Drug Dosing 51.6 Micro Results: 03/16/19 00:53 Aerobic Blood Culture - Pending Blood Anaerobic Blood Culture - Pending 03/16/19 00:53 Aerobic Blood Culture - Pending Blood Anaerobic Blood Culture - Pending - Risk Factors for Resistance * Resident in a assisted or extended-care facility * Hospitalization for 48 hours or more within the past 90 days - Assessment & Plan Assessment 79 year old F admitted for possible HCAP given recent hospital admission and that she lives in assisted/F. Patient with also Diabetes. Vancomycin and Zosyn were started early today to treat HCAP. Plan Vancomycin IV * Estimated PK Parameters: Vd 0.55 L/kg, El 0.047 hr-1, t1/2 14.8 hr * Loading dose: Vancomycin 2250 mg (19.9 mg/kg) x 1 dose given at 03:40 AM. * Maintenance dose: Vancomycin 1250 mg IV (11 mg/kg) every 18 hours started for 1800 tonight. * Goal trough level for HCAP: 15 to 20 mcg/mL * Trough Vanco level ordered for 6/28/19 before dose at 0600 after 2 maintenance doses. * A less than traditional dose have been selected due to likelihood of drug accumulation in elderly, obese patient with BMI = 45.6 kg/m2. Pharmacy will continue to follow and will adjust dose/frequency as necessary. Thank you.
--- NOTE | 2019-03-16 15:30 | History & Physical Bridge Note ---
Date of Service March 16, 2019 History & Physical Bridge Note I have examined the patient, reviewed the History & Physical and in the interval since the performance of the History & Physical I have noted the following changes of clinical significance patient sleeping a lot this morning and this afternoon she is coughing up sputum when she does arouse she moans and complains of pain her daughter was at the bedside, said that she has chronic pain in shoulders and lower back due to her being lethargic I ordered Voltaren gel and Toradol IV reviewed the chart, she is admitted for HCAP agree with the Zosyn and Vancomycin no fever, vitals stable, on 2L via nasal mask
[2019-03-16] MEDS: VANCOMYCIN HCL 1,250 MG in SODIUM CHLORIDE 0.9% 250 ML IV SCH (17:01)
[2019-03-16] MEDS: DICLOFENAC SOD 1% GEL 100 GM TUBE EXT PRN (17:14)
[2019-03-16] MEDS: PRAMIPEXOLE DIHYDROCHLO 0.5 MG TAB PO SCH (19:44)
[2019-03-17] MEDS: ALBUT/IPRATROP 3MG/0.5MG NEB 3 ML VIAL NEB SCH ×5 (04:05→18:59)
[2019-03-17] MEDS: LACTATED RINGER'S 1,000 ML IV SCH (05:30)
[2019-03-17] MEDS: LEVOTHYROXINE SODIUM 137 MCG TABLET PO SCH (05:32)
[2019-03-17 07:48] LABS: Creatinine Clr Calc Pharmacy 62.9 ml/min; Est GFR (African American) 75.5; Est GFR (Non-African American) 65.2
[2019-03-17] MEDS: PIPERACILLIN/TAZOBACTAM 4.5 GM in DEXTROSE 5% 100 ML IV SCH ×3 (08:03→23:35)
[2019-03-17] MEDS: DOCUSATE SODIUM 100 MG CAP PO SCH (08:05)
[2019-03-17] MEDS: CALCIUM 600MG + VIT D 400 IU TAB PO SCH (08:05)
[2019-03-17] MEDS: PANTOprazole 40 MG TAB PO SCH (08:05)
[2019-03-17] MEDS: ALLOPURINOL 100 MG TAB PO SCH ×3 (08:05→21:37)
[2019-03-17] MEDS: ASPIRIN 325 MG ECTAB PO SCH (08:05)
[2019-03-17] MEDS: ASCORBIC ACID 500 MG TAB PO SCH (08:06)
[2019-03-17] MEDS: TOCOPHERYL, DL-ALPHA 100 UNITS CAP PO SCH (08:06)
[2019-03-17] MEDS: GABAPENTIN 300 MG CAP PO SCH ×3 (08:06→21:37)
[2019-03-17] MEDS: NIFEdipine EXTENDED REL 30 MG TABCR PO SCH (08:07)
[2019-03-17] MEDS: TOCOPHERYL, DL-ALPHA 400 UNITS CAP PO SCH (08:07)
[2019-03-17] MEDS: POTASSIUM CHLORIDE 10 MEQ TABCR PO SCH (08:08)
[2019-03-17] MEDS: TRIAMCINOLONE ACET 0.025% CR 15 GM TUBE TOP SCH ×2 (08:08→21:37)
[2019-03-17] MEDS: OMEGA-3 (PURIFIED FISH OIL) 1 GM CAP PO SCH (08:08)
[2019-03-17] MEDS: ENOXAPARIN INJ 40 MG/0.4 ML SYR SQ SCH (08:09)
[2019-03-17] MEDS: CHOLECALCIFEROL 1,000 UNITS TAB PO SCH (08:10)
[2019-03-17] MEDS ORDERED: GLUCOSE 10 TABS/TUBE PO PRN (10:15)
[2019-03-17] MEDS ORDERED: GLUCOSE 40% GEL 15 GM TUBE PO PRN (10:15)
[2019-03-17] MEDS ORDERED: DEXTROSE 50% 50 ML SYRINGE IV PRN (10:15)
[2019-03-17] MEDS ORDERED: CARBOHYDRATES FOR HYPOGLYCEMIA PO PRN (10:15)
[2019-03-17] MEDS ORDERED: GLUCAGON FOR INJ 1 MG VIAL IM PRN (10:15)
[2019-03-17] MEDS: INSULIN ASPART 100 UNITS/ML 3 ML PEN SC SCH ×3 (11:44→21:05)
[2019-03-17] MEDS: VANCOMYCIN HCL 1,250 MG in SODIUM CHLORIDE 0.9% 250 ML IV SCH (11:48)
--- NOTE | 2019-03-17 13:54 | Hospitalist Progress Note ---
Date of Service March 17, 2019 Assessment & Plan (1) HCAP (healthcare-associated pneumonia): fever and cough x 3 days prior to admission, she had been admitted to hospital recently CT chest shows right lower lobe consolidation treat with Zosyn and Vancomycin, continue for today no fever, WBC was normal on admission, will repeat tomorrow continue breathing treatments, encourage to sit more upright concerns for possible aspiration pneumonia, will consult speech therapy to eval and treat (2) SOB (shortness of breath): due to pneumonia hypoxia resolved, on room air today (3) Type 2 diabetes mellitus: diabetic diet Novolog SS monitor for hypoglycemia (4) Hypertension: continue Lasix, BP stable (5) Hypercholesteremia: (6) Fatty liver: (7) Depression: (8) Arthritis: severe pain in back and shoulders bilaterally use Diclofenac gel and Toradol (9) Anxiety: (10) Hypothyroidism: Synthroid (11) Morbid obesity: (12) Anemia: Hemoglobin stable at 11.8 on admission Hemoglobin was 11.2 on 02/22/2019 repeat CBC tomorrow, no signs of blood loss (13) GERD (gastroesophageal reflux disease): Continue Prilosec Subjective patient is more alert today she is asking to sit up more she is coughing, says she is a little short of breath c/o bilateral shoulder pain and back pain reviewed labs, Cr is stable reviewed the chart since admission reviewed CT and CXR no growth on blood cultures discussed with RN, will stop IV fluids, resume Lasix this evening Review of Systems Review of Systems: All systems reviewed & are unremarkable except as noted in HPI & below Constitutional: + fatigue and + weakness; no fever Respiratory: + cough and + sputum production; no dyspnea Cardiovascular: no chest pain and no edema Gastrointestinal: no abdominal pain, no nausea, no vomiting, no constipation and no diarrhea/loose stools Musculoskeletal: + back pain and + joint pain (shoulders) Physical Exam Constitutional: WD/WN, vitals as above + obese Eyes: PERRL, conjunctivae normal, anicteric sclerae ENMT: external ear and nose normal, oropharynx normal (dry mucous membranes) Neck: trachea midline, no thyromegaly Respiratory: normal respiratory effort, lungs clear to auscultation (decreased breath sounds in the bases, no wheezing) Cardiovascular: RRR, no murmur, no edema Gastrointestinal (Abdomen): normal bowel sounds, soft, nontender, no hepatosplenomegaly Musculoskeletal: Head/Neck/Chest: normocephalic and head atraumatic Spine: + limited thoraco-lumbar ROM Extremities: extremities normal to inspection and + limited ROM of extremities (shoulders due to pain) Skin: no rashes, warm and dry Neurologic: patellar DTR's 2+ bilat, sensation intact and PERRL, EOMI, accommodation nl, no face palsy, no dysarthria Psychiatric: Orientation: alert, oriented to person and oriented to place; + not oriented to time Affect: + anxious affect Lymphatic: no cervical or axillary lymphadenopathy Results & Data Vital Signs (Past 12 Hours) Vital Signs Temp Pulse Pulse Pulse Resp BP Pulse Ox 03/17/19 11:19 36.7 C 86 20 104/63 95 03/17/19 11:01 74 18 87 L 03/17/19 08:00 82 03/17/19 07:48 36.6 C 83 18 118/74 100 03/17/19 06:56 74 18 97 03/17/19 04:11 37.1 C 86 18 117/66 99 03/17/19 04:06 83 14 97 Laboratory Results Laboratory Results - last 24 hr 03/17/19 03/17/19 07:01 11:27 Creatinine 0.85 Est Cr Clr Drug Dosing 62.9 Est GFR ( Amer) 75.5 Est GFR (Non-Af Amer) 65.2 POC Glucose 100 H Medications Administered Current Inpatient Medications Acetaminophen (Tylenol) 650 mg PO Q4H PRN PRN Reason: Pain or Fever Stop: 04/15/19 05:36 Albuterol (Duoneb) 3 ml NEB Q4R [facility] Stop: 04/15/19 07:59 Last Admin: 03/17/19 11:01 Dose: 3 ml Documented by: Allopurinol (Zyloprim) 100 mg PO TID [facility] Stop: 04/15/19 08:59 Last Admin: 03/17/19 08:05 Dose: 100 mg Documented by: Ascorbic Acid (Vitamin C) 1,000 mg PO DAILY [facility] Stop: 04/15/19 08:59 Last Admin: 03/17/19 08:06 Dose: 1,000 mg Documented by: Aspirin (Ecotrin) 325 mg PO DAILY [facility] Stop: 04/15/19 08:59 Last Admin: 03/17/19 08:05 Dose: 325 mg Documented by: Dextrose (Dextrose 50%) 25 - 50 ml IV UD PRN; Protocol PRN Reason: Hypoglycemia Protocol Stop: 04/16/19 10:14 Diclofenac Sodium (Voltaren 1% Top) 1 appln EXT Q8H PRN PRN Reason: pain Stop: 04/15/19 05:36 Last Admin: 03/16/19 17:14 Dose: 1 appln Documented by: Docusate Sodium (Colace) 200 mg PO DAILY [facility] Stop: 04/15/19 08:59 Last Admin: 03/17/19 08:05 Dose: 200 mg Documented by: Enoxaparin Sodium (Lovenox) 40 mg SQ Q24H [facility] Stop: 04/15/19 08:59 Last Admin: 03/17/19 08:09 Dose: 40 mg Documented by: Fish Oil (A[place]-3 (Purified Fish Oil)) 1 gm PO DAILY [facility] Stop: 04/15/19 08:59 Last Admin: 03/17/19 08:08 Dose: 1 gm Documented by: Furosemide (Lasix) 80 mg PO BID17 [facility] Stop: 04/16/19 16:59 Gabapentin (Neurontin) 300 mg PO TID [facility] Stop: 04/15/19 08:59 Last Admin: 03/17/19 08:06 Dose: 300 mg Documented by: Glucagon (Glucagen) 1 mg IM UD PRN; Protocol PRN Reason: Hypoglycemia Protocol Stop: 04/16/19 10:14 Glucose (Glucose 40%) 15 - 30 gm PO UD PRN; Protocol PRN Reason: Hypoglycemia Protocol Stop: 04/16/19 10:14 Glucose (Dex4 Glucose) 4 - 8 tabs PO UD PRN; Protocol PRN Reason: Hypoglycemia Protocol Stop: 04/16/19 10:14 Piperacillin Sod/Tazobactam (Sod 4.5 gm/ Dextrose) 120 mls @ 30 mls/hr IV Q8H [facility]; Protocol Stop: 03/23/19 07:59 Last Infusion: 03/17/19 11:48 Dose: Infused Documented by: Vancomycin HCl 1,250 mg/ (Sodium Chloride) 275 mls @ 125 mls/hr IV Q18H [facility]; Protocol Stop: 03/23/19 17:59 Last Admin: 03/17/19 11:48 Dose: 125 mls/hr Documented by: Insulin Aspart (Novolog Flexpen) 0 units SC ACHS [facility] Stop: 04/16/19 11:29 Last Admin: 03/17/19 11:44 Dose: 2 units Documented by: Ioversol (Optiray 320 125ml) 125 ml IV ONCE PRN PRN Reason: Interaction Checking Stop: 03/20/19 02:33 Last Admin: 03/16/19 02:35 Dose: 100 ml Documented by: Ketorolac Tromethamine (Toradol) 15 mg IV Q6H PRN PRN Reason: Pain Stop: 03/21/19 14:12 Levothyroxine Sodium (Levothyroxine Sodium) 137 mcg PO DAILYBB [facility] Stop: 04/15/19 06:29 Last Admin: 03/17/19 05:32 Dose: 137 mcg Documented by: Miscellaneous (Carbohydrates For Hypoglycemia) 15 - 30 gm PO UD PRN PRN Reason: Hypoglycemia Treatment Stop: 04/16/19 10:14 Miscellaneous Information (Consult) 1 ea N/A UD PRN PRN Reason: Consult Stop: 04/15/19 05:36 Miscellaneous Information (Consult) 1 ea N/A UD PRN PRN Reason: Consult Stop: 04/15/19 05:36 Multivitamins/Minerals (Caltrate Plus) 1 tab PO DAILY [facility] Stop: 04/15/19 08:59 Last Admin: 03/17/19 08:05 Dose: 1 tab Documented by: Nifedipine (Procardia Xl) 30 mg PO DAILY [facility] Stop: 04/15/19 08:59 Last Admin: 03/17/19 08:07 Dose: 30 mg Documented by: Pantoprazole Sodium (Protonix) 40 mg PO DAILY [facility] Stop: 04/15/19 08:59 Last Admin: 03/17/19 08:05 Dose: 40 mg Documented by: Potassium Chloride (Klor-Con M10) 10 meq PO DAILY [facility] Stop: 04/15/19 08:59 Last Admin: 03/17/19 08:08 Dose: 10 meq Documented by: Pramipexole Dihydrochloride (Mirapex) 0.5 mg PO HS [facility] Stop: 04/15/19 20:59 Last Admin: 03/16/19 19:44 Dose: 0.5 mg Documented by: Triamcinolone Acetonide (Kenalog 0.025%) 1 appln TOP BID [facility] Stop: 04/15/19 08:59 Last Admin: 03/17/19 08:08 Dose: 1 appln Documented by: Vitamin D (Vitamin D3) 1,000 units PO DAILY [facility] Stop: 04/15/19 08:59 Last Admin: 03/17/19 08:10 Dose: 1,000 units Documented by: Vitamin E (Vitamin E) 800 units PO DAILY [facility] Stop: 04/15/19 08:59 Last Admin: 03/17/19 08:07 Dose: 800 units Documented by: Vitamin E (Vitamin E) 200 units PO DAILY [facility] Stop: 04/15/19 08:59 Last Admin: 03/17/19 08:06 Dose: 200 units Documented by: PG Care Time/CCT Total # of Minutes Spent Total Time Spent with Patient: Total time spent is greater than 50% in coordination of care (as documented) at patient's floor/unit and/or counseling patient:
[2019-03-17] MEDS: GUAIFENESIN/CODEINE 100MG/10MG 5ML UDC PO PRN (14:54)
[2019-03-17] MEDS: FUROSEMIDE 80 MG TAB PO SCH (16:32)
[2019-03-17] MEDS: PRAMIPEXOLE DIHYDROCHLO 0.5 MG TAB PO SCH (21:37)
[2019-03-18] MEDS: ALBUT/IPRATROP 3MG/0.5MG NEB 3 ML VIAL NEB SCH ×7 (00:09→22:58)
[2019-03-18] MEDS ORDERED: VANCOMYCIN TROUGH ONE (05:30)
[2019-03-18 06:13] LABS: Basophils # (auto) 0.01 K/uL (0-0.2); Basophils % (auto) 0.1 %; Eosinophils # (auto) 0.46 K/uL (0-0.5); Eosinophils % (auto) 6.8 %; Hematocrit (blood only) 33.7 % (37-47); Immature Granulocytes # (auto) 0.01 K/uL (0.00-0.02); Immature Granulocytes % (auto) 0.1 %; Lymphocytes # (auto) 1.09 K/uL (1.2-3.4); Lymphocytes % (auto) 16.2 %; Mean Corpuscular Hgb Conc 29.7 g/dL (32-36); Mean Corpuscular Volume 87.5 fL (80-100); Mean Platelet Volume 11.2 fL (7.4-10.4); Monocytes % (auto) 7.4 %; Neutrophils # (auto) 4.66 K/uL (1.4-6.5); Neutrophils % (auto) 69.4 %; Platelet Count 222 K/uL (130-400); RDW Coefficient of Variation 18.8 % (11.5-14.5); RDW Standard Deviation 60.2 fL (36.4-46.3); Red Blood Count 3.85 M/uL (4.2-5.4); White Blood Count 6.73 K/uL (4.8-10.8)
[2019-03-18] MEDS: VANCOMYCIN HCL 1,250 MG in SODIUM CHLORIDE 0.9% 250 ML IV SCH (06:19)
[2019-03-18] MEDS: LEVOTHYROXINE SODIUM 137 MCG TABLET PO SCH (06:22)
[2019-03-18 06:51] LABS: BUN Creatinine Ratio 18.1 (10-20); Calcium 8.5 mg/dl (8.5-10.1); Creatinine Clr Calc Pharmacy 68.6 ml/min; Est GFR (African American) 83.8; Est GFR (Non-African American) 72.3; Potassium 3.5 mmol/L (3.5-5.1)
[2019-03-18] MEDS: CHOLECALCIFEROL 1,000 UNITS TAB PO SCH (07:51)
[2019-03-18] MEDS: TOCOPHERYL, DL-ALPHA 400 UNITS CAP PO SCH (07:51)
[2019-03-18] MEDS: TOCOPHERYL, DL-ALPHA 100 UNITS CAP PO SCH (07:51)
[2019-03-18] MEDS: PANTOprazole 40 MG TAB PO SCH (07:51)
[2019-03-18] MEDS: ASCORBIC ACID 500 MG TAB PO SCH (07:51)
[2019-03-18] MEDS: ASPIRIN 325 MG ECTAB PO SCH (07:52)
[2019-03-18] MEDS: FUROSEMIDE 80 MG TAB PO SCH ×2 (07:52→17:33)
[2019-03-18] MEDS: POTASSIUM CHLORIDE 10 MEQ TABCR PO SCH (07:52)
[2019-03-18] MEDS: CALCIUM 600MG + VIT D 400 IU TAB PO SCH (07:52)
[2019-03-18] MEDS: GABAPENTIN 300 MG CAP PO SCH ×3 (07:52→21:48)
[2019-03-18] MEDS: DOCUSATE SODIUM 100 MG CAP PO SCH (07:52)
[2019-03-18] MEDS: NIFEdipine EXTENDED REL 30 MG TABCR PO SCH (07:52)
[2019-03-18] MEDS: ENOXAPARIN INJ 40 MG/0.4 ML SYR SQ SCH (07:53)
[2019-03-18] MEDS: OMEGA-3 (PURIFIED FISH OIL) 1 GM CAP PO SCH (07:53)
[2019-03-18] MEDS: TRIAMCINOLONE ACET 0.025% CR 15 GM TUBE TOP SCH ×2 (07:54→20:32)
[2019-03-18] MEDS: ALLOPURINOL 100 MG TAB PO SCH ×3 (07:55→20:23)
[2019-03-18] MEDS: PIPERACILLIN/TAZOBACTAM 4.5 GM in DEXTROSE 5% 100 ML IV SCH ×3 (07:56→23:52)
[2019-03-18] MEDS: INSULIN ASPART 100 UNITS/ML 3 ML PEN SC SCH ×4 (07:56→20:57)
[2019-03-18] MEDS: TOBRAMYCIN/DEXAMETHASONE OPH SUSP 2.5 ML BTL OPR SCH ×3 (12:38→20:17)
--- NOTE | 2019-03-18 12:51 | Hospitalist Progress Note ---
Date of Service March 18, 2019 Assessment & Plan (1) HCAP (healthcare-associated pneumonia): fever and cough x 3 days prior to admission, she had been admitted to hospital recently CT chest shows right lower lobe consolidation treated with Zosyn and Vancomycin initially stop the Vancomycin on 03/18 since MRSA swab negative continue Zosyn for now, convert to Augmentin prior to discharge complete a 7 day course total no fever, WBC was normal, will repeat tomorrow continue breathing treatments, encourage to sit more upright concerns for possible aspiration pneumonia consulted speech, normal swallowing function aspiration pneumonia ruled out (2) SOB (shortness of breath): due to pneumonia hypoxia resolved as well as dyspnea (3) Type 2 diabetes mellitus: diabetic diet Novolog SS monitor for hypoglycemia (4) Hypertension: continue Lasix, BP stable (5) Hypercholesteremia: (6) Fatty liver: (7) Depression: (8) Arthritis: severe pain in back and shoulders bilaterally use Diclofenac gel and Toradol (9) Anxiety: (10) Hypothyroidism: Synthroid (11) Morbid obesity: (12) Anemia: Hemoglobin stable at 11.8 on admission Hemoglobin was 11.2 on 02/22/2019 repeat CBC tomorrow, no signs of blood loss (13) GERD (gastroesophageal reflux disease): Continue Prilosec (14) Weakness: consult PT/OT per patient, she was very weak at [facility] she was just starting to stand up and transfer but was not walking Subjective patient much more alert today, talking a lot more wraps are off of her legs, she feels well eating well, no BM yet while admitted c/o some irritation and redness of both eyelids, she says it started with the oxygen mask still with mild cough but breathing is stable, on room air discussed with pharmacy, will stop the Vanco since MRSA swab negative reviewed labs, BMP and CBC stable discussed with RN, will transfer to medical Review of Systems Review of Systems: All systems reviewed & are unremarkable except as noted in HPI & below Constitutional: + fatigue and + weakness; no fever Respiratory: + cough; no dyspnea Cardiovascular: + edema; no chest pain Gastrointestinal: + constipation; no abdominal pain, no nausea, no vomiting and no diarrhea/loose stools Physical Exam Constitutional: WD/WN, vitals as above + obese Eyes: PERRL, conjunctivae normal, anicteric sclerae ENMT: external ear and nose normal, oropharynx normal Neck: trachea midline, no thyromegaly Respiratory: normal respiratory effort, lungs clear to auscultation (decreased breath sounds in the bases, no wheezing) Cardiovascular: RRR, no murmur, no edema Gastrointestinal (Abdomen): normal bowel sounds, soft, nontender, no hepatosplenomegaly Musculoskeletal: Head/Neck/Chest: normocephalic and head atraumatic Spine: + limited thoraco-lumbar ROM Extremities: extremities normal to inspection and + limited ROM of extremities (shoulders due to pain) Skin: no rashes, warm and dry Neurologic: patellar DTR's 2+ bilat, sensation intact and PERRL, EOMI, accommodation nl, no face palsy, no dysarthria Psychiatric: A+Ox3, euthymic affect Lymphatic: no cervical or axillary lymphadenopathy Results & Data Vital Signs (Past 12 Hours) Vital Signs Temp Pulse Resp BP Pulse Ox 03/18/19 11:42 81 18 93 03/18/19 10:45 36.5 C 76 20 141/80 H 94 03/18/19 07:42 36.6 C 84 19 120/68 96 03/18/19 06:50 76 18 95 03/18/19 04:20 36.6 C 78 20 108/67 98 03/18/19 03:43 71 18 93 Laboratory Results Laboratory Results - last 24 hr 03/17/19 03/17/19 03/17/19 16:00 16:02 20:35 WBC RBC Hgb Hct MCV MCH MCHC RDW Std Deviation RDW Coeff of Josue Plt Count MPV Immature Gran % (Auto) Neut % (Auto) Lymph % (Auto) [place] % (Auto) Eos % (Auto) Baso % (Auto) Immature Gran # (Auto) Neut # (Auto) Lymph # (Auto) [place] # (Auto) Eos # (Auto) Baso # (Auto) Sodium Potassium Chloride Carbon Dioxide Anion Gap BUN Creatinine Est Cr Clr Drug Dosing Est GFR ( Amer) Est GFR (Non-Af Amer) BUN/Creatinine Ratio Glucose POC Glucose 103 H 105 H Calcium Nasal Screen MRSA (PCR) Negative Vancomycin Trough 03/18/19 03/18/19 03/18/19 05:50 05:50 05:50 WBC 6.73 RBC 3.85 L Hgb 10.0 L Hct 33.7 L MCV 87.5 MCH 26.0 MCHC 29.7 L RDW Std Deviation 60.2 H RDW Coeff of Josue 18.8 H Plt Count 222 MPV 11.2 H Immature Gran % (Auto) 0.1 Neut % (Auto) 69.4 Lymph % (Auto) 16.2 [place] % (Auto) 7.4 Eos % (Auto) 6.8 Baso % (Auto) 0.1 Immature Gran # (Auto) 0.01 Neut # (Auto) 4.66 Lymph # (Auto) 1.09 L [place] # (Auto) 0.50 Eos # (Auto) 0.46 Baso # (Auto) 0.01 Sodium 141 Potassium 3.5 Chloride 103 Carbon Dioxide 32 Anion Gap 6.0 BUN 14 Creatinine 0.78 Est Cr Clr Drug Dosing 68.6 Est GFR ( Amer) 83.8 Est GFR (Non-Af Amer) 72.3 BUN/Creatinine Ratio 18.1 Glucose 97 POC Glucose Calcium 8.5 Nasal Screen MRSA (PCR) Vancomycin Trough 15.8 03/18/19 03/18/19 07:39 11:43 WBC RBC Hgb Hct MCV MCH MCHC RDW Std Deviation RDW Coeff of Josue Plt Count MPV Immature Gran % (Auto) Neut % (Auto) Lymph % (Auto) [place] % (Auto) Eos % (Auto) Baso % (Auto) Immature Gran # (Auto) Neut # (Auto) Lymph # (Auto) [place] # (Auto) Eos # (Auto) Baso # (Auto) Sodium Potassium Chloride Carbon Dioxide Anion Gap BUN Creatinine Est Cr Clr Drug Dosing Est GFR ( Amer) Est GFR (Non-Af Amer) BUN/Creatinine Ratio Glucose POC Glucose 95 115 H Calcium Nasal Screen MRSA (PCR) Vancomycin Trough Medications Administered Current Inpatient Medications Acetaminophen (Tylenol) 650 mg PO Q4H PRN PRN Reason: Pain or Fever Stop: 04/15/19 05:36 Albuterol (Duoneb) 3 ml NEB Q4R [facility] Stop: 04/15/19 07:59 Last Admin: 03/18/19 11:39 Dose: 3 ml Documented by: Allopurinol (Zyloprim) 100 mg PO TID [facility] Stop: 04/15/19 08:59 Last Admin: 03/18/19 07:55 Dose: 100 mg Documented by: Ascorbic Acid (Vitamin C) 1,000 mg PO DAILY [facility] Stop: 04/15/19 08:59 Last Admin: 03/18/19 07:51 Dose: 1,000 mg Documented by: Aspirin (Ecotrin) 325 mg PO DAILY [facility] Stop: 04/15/19 08:59 Last Admin: 03/18/19 07:52 Dose: 325 mg Documented by: Dextrose (Dextrose 50%) 25 - 50 ml IV UD PRN; Protocol PRN Reason: Hypoglycemia Protocol Stop: 04/16/19 10:14 Diclofenac Sodium (Voltaren 1% Top) 1 appln EXT Q8H PRN PRN Reason: pain Stop: 04/15/19 05:36 Last Admin: 03/16/19 17:14 Dose: 1 appln Documented by: Docusate Sodium (Colace) 200 mg PO DAILY [facility] Stop: 04/15/19 08:59 Last Admin: 03/18/19 07:52 Dose: 200 mg Documented by: Enoxaparin Sodium (Lovenox) 40 mg SQ Q24H [facility] Stop: 04/15/19 08:59 Last Admin: 03/18/19 07:53 Dose: 40 mg Documented by: Fish Oil ([place]-3 (Purified Fish Oil)) 1 gm PO DAILY [facility] Stop: 04/15/19 08:59 Last Admin: 03/18/19 07:53 Dose: 1 gm Documented by: Furosemide (Lasix) 80 mg PO BID17 [facility] Stop: 04/16/19 16:59 Last Admin: 03/18/19 07:52 Dose: 80 mg Documented by: Gabapentin (Neurontin) 300 mg PO TID [facility] Stop: 04/15/19 08:59 Last Admin: 03/18/19 07:52 Dose: 300 mg Documented by: Glucagon (Glucagen) 1 mg IM UD PRN; Protocol PRN Reason: Hypoglycemia Protocol Stop: 04/16/19 10:14 Glucose (Glucose 40%) 15 - 30 gm PO UD PRN; Protocol PRN Reason: Hypoglycemia Protocol Stop: 04/16/19 10:14 Glucose (Dex4 Glucose) 4 - 8 tabs PO UD PRN; Protocol PRN Reason: Hypoglycemia Protocol Stop: 04/16/19 10:14 Guaifenesin/Codeine Phosphate (Robitussin-Ac Sugar Free) 5 ml PO Q6H PRN PRN Reason: Cough Stop: 04/16/19 14:40 Last Admin: 03/17/19 14:54 Dose: 5 ml Documented by: Piperacillin Sod/Tazobactam (Sod 4.5 gm/ Dextrose) 120 mls @ 30 mls/hr IV Q8H [facility]; Protocol Stop: 03/23/19 07:59 Last Infusion: 03/18/19 12:06 Dose: Infused Documented by: Insulin Aspart (Novolog Flexpen) 0 units SC ACHS [facility] Stop: 04/16/19 11:29 Last Admin: 03/18/19 12:35 Dose: 2 units Documented by: Ioversol (Optiray 320 125ml) 125 ml IV ONCE PRN PRN Reason: Interaction Checking Stop: 03/20/19 02:33 Last Admin: 03/16/19 02:35 Dose: 100 ml Documented by: Ketorolac Tromethamine (Toradol) 15 mg IV Q6H PRN PRN Reason: Pain Stop: 03/21/19 14:12 Levothyroxine Sodium (Levothyroxine Sodium) 137 mcg PO DAILYBB [facility] Stop: 04/15/19 06:29 Last Admin: 03/18/19 06:22 Dose: 137 mcg Documented by: Miscellaneous (Carbohydrates For Hypoglycemia) 15 - 30 gm PO UD PRN PRN Reason: Hypoglycemia Treatment Stop: 04/16/19 10:14 Miscellaneous Information (Consult) 1 ea N/A UD PRN PRN Reason: Consult Stop: 04/15/19 05:36 Multivitamins/Minerals (Caltrate Plus) 1 tab PO DAILY [facility] Stop: 04/15/19 08:59 Last Admin: 03/18/19 07:52 Dose: 1 tab Documented by: Nifedipine (Procardia Xl) 30 mg PO DAILY [facility] Stop: 04/15/19 08:59 Last Admin: 03/18/19 07:52 Dose: 30 mg Documented by: Pantoprazole Sodium (Protonix) 40 mg PO DAILY [facility] Stop: 04/15/19 08:59 Last Admin: 03/18/19 07:51 Dose: 40 mg Documented by: Potassium Chloride (Klor-Con M10) 10 meq PO DAILY [facility] Stop: 04/15/19 08:59 Last Admin: 03/18/19 07:52 Dose: 10 meq Documented by: Pramipexole Dihydrochloride (Mirapex) 0.5 mg PO HS [facility] Stop: 04/15/19 20:59 Last Admin: 03/17/19 21:37 Dose: 0.5 mg Documented by: Tobramycin/Dexamethasone (Tobradex Oph) 1 drops OPR Q4HWA [facility] Stop: 04/17/19 11:59 Last Admin: 03/18/19 12:38 Dose: 1 drops Documented by: Triamcinolone Acetonide (Kenalog 0.025%) 1 appln TOP BID [facility] Stop: 04/15/19 08:59 Last Admin: 03/18/19 07:54 Dose: 1 appln Documented by: Vitamin D (Vitamin D3) 1,000 units PO DAILY [facility] Stop: 04/15/19 08:59 Last Admin: 03/18/19 07:51 Dose: 1,000 units Documented by: Vitamin E (Vitamin E) 800 units PO DAILY [facility] Stop: 04/15/19 08:59 Last Admin: 03/18/19 07:51 Dose: 800 units Documented by: Vitamin E (Vitamin E) 200 units PO DAILY [facility] Stop: 04/15/19 08:59 Last Admin: 03/18/19 07:51 Dose: 200 units Documented by: PG Care Time/CCT Total # of Minutes Spent Total Time Spent with Patient: Total time spent is greater than 50% in coordination of care (as documented) at patient's floor/unit and/or counseling patient:
[2019-03-18] MEDS: PRAMIPEXOLE DIHYDROCHLO 0.5 MG TAB PO SCH (20:23)
[2019-03-18] MEDS: GUAIFENESIN/CODEINE 100MG/10MG 5ML UDC PO PRN (22:31)
[2019-03-19] MEDS: ALBUT/IPRATROP 3MG/0.5MG NEB 3 ML VIAL NEB SCH ×6 (03:54→23:52)
[2019-03-19] MEDS: LEVOTHYROXINE SODIUM 137 MCG TABLET PO SCH (06:28)
[2019-03-19] MEDS: INSULIN ASPART 100 UNITS/ML 3 ML PEN SC SCH ×4 (08:50→21:12)
[2019-03-19] MEDS: PIPERACILLIN/TAZOBACTAM 4.5 GM in DEXTROSE 5% 100 ML IV SCH (08:52)
[2019-03-19] MEDS: TOBRAMYCIN/DEXAMETHASONE OPH SUSP 2.5 ML BTL OPR SCH ×4 (11:13→20:06)
[2019-03-19] MEDS: DOCUSATE SODIUM 100 MG CAP PO SCH (11:14)
[2019-03-19] MEDS: CALCIUM 600MG + VIT D 400 IU TAB PO SCH (11:14)
[2019-03-19] MEDS: ASPIRIN 325 MG ECTAB PO SCH (11:15)
[2019-03-19] MEDS: POTASSIUM CHLORIDE 10 MEQ TABCR PO SCH (11:16)
[2019-03-19] MEDS: FUROSEMIDE 80 MG TAB PO SCH ×2 (11:17→18:05)
[2019-03-19] MEDS: ENOXAPARIN INJ 40 MG/0.4 ML SYR SQ SCH (11:17)
[2019-03-19] MEDS: GABAPENTIN 300 MG CAP PO SCH ×3 (11:18→20:07)
[2019-03-19] MEDS: OMEGA-3 (PURIFIED FISH OIL) 1 GM CAP PO SCH (11:18)
[2019-03-19] MEDS: ASCORBIC ACID 500 MG TAB PO SCH (11:19)
[2019-03-19] MEDS: NIFEdipine EXTENDED REL 30 MG TABCR PO SCH (11:19)
[2019-03-19] MEDS: PANTOprazole 40 MG TAB PO SCH (11:19)
[2019-03-19] MEDS: CHOLECALCIFEROL 1,000 UNITS TAB PO SCH (11:20)
[2019-03-19] MEDS: TOCOPHERYL, DL-ALPHA 400 UNITS CAP PO SCH (11:20)
[2019-03-19] MEDS: ALLOPURINOL 100 MG TAB PO SCH ×3 (11:21→20:08)
[2019-03-19] MEDS: TOCOPHERYL, DL-ALPHA 100 UNITS CAP PO SCH (11:21)
[2019-03-19] MEDS: TRIAMCINOLONE ACET 0.025% CR 15 GM TUBE TOP SCH ×2 (11:27→20:07)
--- NOTE | 2019-03-19 14:47 | Hospitalist Progress Note ---
Date of Service March 19, 2019 Assessment & Plan (1) HCAP (healthcare-associated pneumonia): fever and cough x 3 days prior to admission, she had been admitted to hospital recently CT chest shows right lower lobe consolidation treated with Zosyn and Vancomycin initially stop the Vancomycin on 03/18 since MRSA swab negative treated with Zosyn, change to Augmentin this evening complete a 7 day course total no fever, WBC has been normal continue breathing treatments, encourage to sit more upright concerns for possible aspiration pneumonia consulted speech, normal swallowing function aspiration pneumonia ruled out (2) SOB (shortness of breath): due to pneumonia hypoxia resolved as well as dyspnea (3) Type 2 diabetes mellitus: diabetic diet Novolog SS monitor for hypoglycemia, no episodes (4) Hypertension: continue Lasix, BP stable (5) Hypercholesteremia: (6) Fatty liver: (7) Depression: (8) Arthritis: severe pain in back and shoulders bilaterally use Diclofenac gel and Toradol doubt she would be a surgical candidate for shoulders due to comorbidities (9) Anxiety: (10) Hypothyroidism: Synthroid (11) Morbid obesity: (12) Anemia: Hemoglobin stable at 11.8 on admission Hemoglobin was 11.2 on 02/22/2019 repeat CBC tomorrow, no signs of blood loss (13) GERD (gastroesophageal reflux disease): Continue Prilosec (14) Weakness: consult PT/OT per patient, she was very weak at [facility] she was just starting to stand up and transfer but was not walking she is open to returning to [facility] PT note recommends a return to rehab would be ready on Thursday Subjective patient doing okay today, says that she is frustrated due to pain in shoulders she had trouble eating breakfast because of limited mobility in left shoulder joint she says her breathing is stable, no cough discussed that speech therapy cleared her to eat regularly, no signs of aspiration no labs today discussed therapy, she could barely stand up, took two steps with her rolling walker she said that she was in her wheelchair for the most part at [facility] she is open to returning there for more rehab Review of Systems Review of Systems: All systems reviewed & are unremarkable except as noted in HPI & below Constitutional: + fatigue and + weakness; no fever, no chills and no sweats Respiratory: + dyspnea on exertion; no cough, no dyspnea and no sputum production Cardiovascular: + edema; no chest pain Gastrointestinal: no abdominal pain, no nausea, no vomiting, no constipation and no diarrhea/loose stools Musculoskeletal: + back pain and + joint pain (shoulders bilaterally) Physical Exam Constitutional: WD/WN, vitals as above + obese Eyes: PERRL, conjunctivae normal, anicteric sclerae ENMT: external ear and nose normal, oropharynx normal Neck: trachea midline, no thyromegaly Respiratory: normal respiratory effort, lungs clear to auscultation (decreased breath sounds in the bases, no wheezing) Cardiovascular: RRR, no murmur, no edema Gastrointestinal (Abdomen): normal bowel sounds, soft, nontender, no hepatosplenomegaly Musculoskeletal: Head/Neck/Chest: normocephalic and head atraumatic Spine: + limited thoraco-lumbar ROM Extremities: extremities normal to inspection and + limited ROM of extremities (shoulders due to pain) Skin: no rashes, warm and dry Neurologic: patellar DTR's 2+ bilat, sensation intact and PERRL, EOMI, accommodation nl, no face palsy, no dysarthria Psychiatric: A+Ox3, euthymic affect Orientation: alert, oriented to person and oriented to place; + not oriented to time Affect: + anxious affect Lymphatic: no cervical or axillary lymphadenopathy Results & Data Vital Signs (Past 12 Hours) Vital Signs Temp Pulse Resp BP Pulse Ox 03/19/19 11:33 75 18 96 03/19/19 07:24 81 17 96 03/19/19 07:03 36.8 C 80 18 103/66 96 03/19/19 03:54 71 18 93 Medications Administered Current Inpatient Medications Acetaminophen (Tylenol) 650 mg PO Q4H PRN PRN Reason: Pain or Fever Stop: 04/15/19 05:36 Albuterol (Duoneb) 3 ml NEB Q4R [facility] Stop: 04/15/19 07:59 Last Admin: 03/19/19 11:33 Dose: 3 ml Documented by: Allopurinol (Zyloprim) 100 mg PO TID [facility] Stop: 04/15/19 08:59 Last Admin: 03/19/19 11:21 Dose: 100 mg Documented by: Ascorbic Acid (Vitamin C) 1,000 mg PO DAILY [facility] Stop: 04/15/19 08:59 Last Admin: 03/19/19 11:19 Dose: 1,000 mg Documented by: Aspirin (Ecotrin) 325 mg PO DAILY [facility] Stop: 04/15/19 08:59 Last Admin: 03/19/19 11:15 Dose: 325 mg Documented by: Dextrose (Dextrose 50%) 25 - 50 ml IV UD PRN; Protocol PRN Reason: Hypoglycemia Protocol Stop: 04/16/19 10:14 Diclofenac Sodium (Voltaren 1% Top) 1 appln EXT Q8H PRN PRN Reason: pain Stop: 04/15/19 05:36 Last Admin: 03/16/19 17:14 Dose: 1 appln Documented by: Docusate Sodium (Colace) 200 mg PO DAILY [facility] Stop: 04/15/19 08:59 Last Admin: 03/19/19 11:14 Dose: Not Given Documented by: Enoxaparin Sodium (Lovenox) 40 mg SQ Q24H [facility] Stop: 04/15/19 08:59 Last Admin: 03/19/19 11:17 Dose: 40 mg Documented by: Fish Oil ([place]-3 (Purified Fish Oil)) 1 gm PO DAILY [facility] Stop: 04/15/19 08:59 Last Admin: 03/19/19 11:18 Dose: 1 gm Documented by: Furosemide (Lasix) 80 mg PO BID17 [facility] Stop: 04/16/19 16:59 Last Admin: 03/19/19 11:17 Dose: 80 mg Documented by: Gabapentin (Neurontin) 300 mg PO TID [facility] Stop: 04/15/19 08:59 Last Admin: 03/19/19 11:18 Dose: 300 mg Documented by: Glucagon (Glucagen) 1 mg IM UD PRN; Protocol PRN Reason: Hypoglycemia Protocol Stop: 04/16/19 10:14 Glucose (Glucose 40%) 15 - 30 gm PO UD PRN; Protocol PRN Reason: Hypoglycemia Protocol Stop: 04/16/19 10:14 Glucose (Dex4 Glucose) 4 - 8 tabs PO UD PRN; Protocol PRN Reason: Hypoglycemia Protocol Stop: 04/16/19 10:14 Guaifenesin/Codeine Phosphate (Robitussin-Ac Sugar Free) 5 ml PO Q6H PRN PRN Reason: Cough Stop: 04/16/19 14:40 Last Admin: 03/18/19 22:31 Dose: 5 ml Documented by: Piperacillin Sod/Tazobactam (Sod 4.5 gm/ Dextrose) 120 mls @ 30 mls/hr IV Q8H [facility]; Protocol Stop: 03/23/19 07:59 Last Infusion: 03/19/19 12:55 Dose: Infused Documented by: Insulin Aspart (Novolog Flexpen) 0 units SC ACHS [facility] Stop: 04/16/19 11:29 Last Admin: 03/19/19 13:07 Dose: 2 units Documented by: Ioversol (Optiray 320 125ml) 125 ml IV ONCE PRN PRN Reason: Interaction Checking Stop: 03/20/19 02:33 Last Admin: 03/16/19 02:35 Dose: 100 ml Documented by: Ketorolac Tromethamine (Toradol) 15 mg IV Q6H PRN PRN Reason: Pain Stop: 03/21/19 14:12 Levothyroxine Sodium (Levothyroxine Sodium) 137 mcg PO DAILYBB [facility] Stop: 04/15/19 06:29 Last Admin: 03/19/19 06:28 Dose: 137 mcg Documented by: Miscellaneous (Carbohydrates For Hypoglycemia) 15 - 30 gm PO UD PRN PRN Reason: Hypoglycemia Treatment Stop: 04/16/19 10:14 Miscellaneous Information (Consult) 1 ea N/A UD PRN PRN Reason: Consult Stop: 04/15/19 05:36 Multivitamins/Minerals (Caltrate Plus) 1 tab PO DAILY [facility] Stop: 04/15/19 08:59 Last Admin: 03/19/19 11:14 Dose: 1 tab Documented by: Nifedipine (Procardia Xl) 30 mg PO DAILY [facility] Stop: 04/15/19 08:59 Last Admin: 03/19/19 11:19 Dose: 30 mg Documented by: Pantoprazole Sodium (Protonix) 40 mg PO DAILY [facility] Stop: 04/15/19 08:59 Last Admin: 03/19/19 11:19 Dose: 40 mg Documented by: Potassium Chloride (Klor-Con M10) 10 meq PO DAILY [facility] Stop: 04/15/19 08:59 Last Admin: 03/19/19 11:16 Dose: 10 meq Documented by: Pramipexole Dihydrochloride (Mirapex) 0.5 mg PO HS [facility] Stop: 04/15/19 20:59 Last Admin: 03/18/19 20:23 Dose: 0.5 mg Documented by: Tobramycin/Dexamethasone (Tobradex Oph) 1 drops OPR Q4HWA [facility] Stop: 04/17/19 11:59 Last Admin: 03/19/19 13:03 Dose: Not Given Documented by: Triamcinolone Acetonide (Kenalog 0.025%) 1 appln TOP BID [facility] Stop: 04/15/19 08:59 Last Admin: 03/19/19 11:27 Dose: 45 appln Documented by: Vitamin D (Vitamin D3) 1,000 units PO DAILY [facility] Stop: 04/15/19 08:59 Last Admin: 03/19/19 11:20 Dose: 1,000 units Documented by: Vitamin E (Vitamin E) 800 units PO DAILY [facility] Stop: 04/15/19 08:59 Last Admin: 03/19/19 11:20 Dose: 800 units Documented by: Vitamin E (Vitamin E) 200 units PO DAILY [facility] Stop: 04/15/19 08:59 Last Admin: 03/19/19 11:21 Dose: 200 units Documented by: PG Care Time/CCT Total # of Minutes Spent Total Time Spent with Patient: Total time spent is greater than 50% in coordination of care (as documented) at patient's floor/unit and/or counseling patient:
[2019-03-19] MEDS: AMOXICILLIN/CLAVULANATE 875 MG TAB PO SCH (18:04)
[2019-03-19] MEDS: PRAMIPEXOLE DIHYDROCHLO 0.5 MG TAB PO SCH (20:08)
[2019-03-20] MEDS: ALBUT/IPRATROP 3MG/0.5MG NEB 3 ML VIAL NEB SCH ×6 (04:10→23:14)
[2019-03-20] MEDS: LEVOTHYROXINE SODIUM 137 MCG TABLET PO SCH (06:05)
[2019-03-20] MEDS: TOCOPHERYL, DL-ALPHA 100 UNITS CAP PO SCH (08:20)
[2019-03-20] MEDS: OMEGA-3 (PURIFIED FISH OIL) 1 GM CAP PO SCH (08:20)
[2019-03-20] MEDS: NIFEdipine EXTENDED REL 30 MG TABCR PO SCH (08:20)
[2019-03-20] MEDS: ASPIRIN 325 MG ECTAB PO SCH (08:21)
[2019-03-20] MEDS: ASCORBIC ACID 500 MG TAB PO SCH (08:21)
[2019-03-20] MEDS: TOCOPHERYL, DL-ALPHA 400 UNITS CAP PO SCH (08:21)
[2019-03-20] MEDS: FUROSEMIDE 80 MG TAB PO SCH ×2 (08:21→17:35)
[2019-03-20] MEDS: ENOXAPARIN INJ 40 MG/0.4 ML SYR SQ SCH (08:21)
[2019-03-20] MEDS: AMOXICILLIN/CLAVULANATE 875 MG TAB PO SCH ×2 (08:21→17:34)
[2019-03-20] MEDS: GABAPENTIN 300 MG CAP PO SCH ×3 (08:21→20:22)
[2019-03-20] MEDS: CHOLECALCIFEROL 1,000 UNITS TAB PO SCH (08:21)
[2019-03-20] MEDS: PANTOprazole 40 MG TAB PO SCH (08:21)
[2019-03-20] MEDS: ALLOPURINOL 100 MG TAB PO SCH ×3 (08:21→20:22)
[2019-03-20] MEDS: CALCIUM 600MG + VIT D 400 IU TAB PO SCH (08:21)
[2019-03-20] MEDS: TRIAMCINOLONE ACET 0.025% CR 15 GM TUBE TOP SCH ×2 (08:22→20:19)
[2019-03-20] MEDS: TOBRAMYCIN/DEXAMETHASONE OPH SUSP 2.5 ML BTL OPR SCH ×4 (08:22→20:20)
[2019-03-20] MEDS: INSULIN ASPART 100 UNITS/ML 3 ML PEN SC SCH ×4 (08:23→21:00)
[2019-03-20] MEDS: DOCUSATE SODIUM 100 MG CAP PO SCH (08:29)
--- NOTE | 2019-03-20 15:53 | Hospitalist Progress Note ---
Date of Service March 20, 2019 Assessment & Plan (1) HCAP (healthcare-associated pneumonia): fever and cough x 3 days prior to admission, she had been admitted to hospital recently CT chest shows right lower lobe consolidation treated with Zosyn and Vancomycin initially stop the Vancomycin on 03/18 since MRSA swab negative treated with Zosyn, change to Augmentin on 03/19 complete a 7 day course total -- tomorrow is day 7 no fever, WBC has been normal continue breathing treatments, encourage to sit more upright concerns for possible aspiration pneumonia consulted speech, normal swallowing function aspiration pneumonia ruled out (2) SOB (shortness of breath): due to pneumonia hypoxia resolved as well as dyspnea (3) Type 2 diabetes mellitus: diabetic diet Novolog SS monitor for hypoglycemia, no episodes (4) Hypertension: continue Lasix, BP stable (5) Hypercholesteremia: (6) Fatty liver: (7) Depression: (8) Arthritis: severe pain in back and shoulders bilaterally use Diclofenac gel and Toradol doubt she would be a surgical candidate for shoulders due to comorbidities (9) Anxiety: (10) Hypothyroidism: Synthroid (11) Morbid obesity: (12) Anemia: Hemoglobin stable at 11.8 on admission Hemoglobin was 11.2 on 02/22/2019 repeat CBC tomorrow, no signs of blood loss (13) GERD (gastroesophageal reflux disease): Continue Prilosec (14) Weakness: consult PT/OT per patient, she was very weak at [facility] she was just starting to stand up and transfer but was not walking she is open to returning to [facility] PT note recommends a return to rehab would be ready on Thursday will need acceptance and insurance auth daughter requests that she is called once we figure out if she is going so she does not drive to [employer] unecessarily Subjective patient doing well today, therapy got her up into chair she was visibly anxious, shaking a little after they did it she is very, very scared of falling, she is very weak discussed rehab with daughter at the bedside, she agrees with [facility] tomorrow patient breathing well, no cough eating well, no fever, no chills no abdominal pain Review of Systems Review of Systems: All systems reviewed & are unremarkable except as noted in HPI & below Musculoskeletal: + joint pain (shoulders bilaterally) and + muscle weakness (diffuse) Physical Exam Constitutional: WD/WN, vitals as above + obese Eyes: PERRL, conjunctivae normal, anicteric sclerae ENMT: external ear and nose normal, oropharynx normal Neck: trachea midline, no thyromegaly Respiratory: normal respiratory effort, lungs clear to auscultation (decreased breath sounds in the bases, no wheezing) Cardiovascular: RRR, no murmur, no edema Gastrointestinal (Abdomen): normal bowel sounds, soft, nontender, no hepatosplenomegaly Musculoskeletal: Head/Neck/Chest: normocephalic and head atraumatic Spine: + limited thoraco-lumbar ROM Extremities: extremities normal to inspection and + limited ROM of extremities (shoulders due to pain) Skin: no rashes, warm and dry Neurologic: patellar DTR's 2+ bilat, sensation intact and PERRL, EOMI, accommodation nl, no face palsy, no dysarthria Psychiatric: A+Ox3, euthymic affect Orientation: alert, oriented to person and oriented to place; + not oriented to time Affect: + anxious affect Lymphatic: no cervical or axillary lymphadenopathy Results & Data Vital Signs (Past 12 Hours) Vital Signs Temp Pulse Resp BP BP Pulse Ox 03/20/19 15:33 36.7 C 105 H 16 127/77 91 03/20/19 15:13 83 18 95 03/20/19 11:18 103 H 18 92 03/20/19 07:20 36.7 C 92 H 16 122/73 93 03/20/19 04:10 80 18 92 Laboratory Results Laboratory Results - last 24 hr 03/19/19 03/19/19 03/20/19 16:42 20:13 07:54 POC Glucose 113 H 148 H 103 H 03/20/19 11:46 POC Glucose 116 H Medications Administered Current Inpatient Medications Acetaminophen (Tylenol) 650 mg PO Q4H PRN PRN Reason: Pain or Fever Stop: 04/15/19 05:36 Albuterol (Duoneb) 3 ml NEB Q4R [facility] Stop: 04/15/19 07:59 Last Admin: 03/20/19 15:13 Dose: 3 ml Documented by: Allopurinol (Zyloprim) 100 mg PO TID [facility] Stop: 04/15/19 08:59 Last Admin: 03/20/19 13:55 Dose: 100 mg Documented by: Amoxicillin/Clavulanate Potassium (Augmentin 875mg) 1 tab PO BIDM [facility]; Protocol Stop: 03/26/19 16:59 Last Admin: 03/20/19 08:21 Dose: 1 tab Documented by: Ascorbic Acid (Vitamin C) 1,000 mg PO DAILY [facility] Stop: 04/15/19 08:59 Last Admin: 03/20/19 08:21 Dose: 1,000 mg Documented by: Aspirin (Ecotrin) 325 mg PO DAILY [facility] Stop: 04/15/19 08:59 Last Admin: 03/20/19 08:21 Dose: 325 mg Documented by: Dextrose (Dextrose 50%) 25 - 50 ml IV UD PRN; Protocol PRN Reason: Hypoglycemia Protocol Stop: 04/16/19 10:14 Diclofenac Sodium (Voltaren 1% Top) 1 appln EXT Q8H PRN PRN Reason: pain Stop: 04/15/19 05:36 Last Admin: 03/16/19 17:14 Dose: 1 appln Documented by: Docusate Sodium (Colace) 200 mg PO DAILY [facility] Stop: 04/15/19 08:59 Last Admin: 03/20/19 08:29 Dose: 100 mg Documented by: Enoxaparin Sodium (Lovenox) 40 mg SQ Q24H [facility] Stop: 04/15/19 08:59 Last Admin: 03/20/19 08:21 Dose: 40 mg Documented by: Fish Oil ([place]-3 (Purified Fish Oil)) 1 gm PO DAILY [facility] Stop: 04/15/19 08:59 Last Admin: 03/20/19 08:20 Dose: 1 gm Documented by: Furosemide (Lasix) 80 mg PO BID17 [facility] Stop: 04/16/19 16:59 Last Admin: 03/20/19 08:21 Dose: 80 mg Documented by: Gabapentin (Neurontin) 300 mg PO TID [facility] Stop: 04/15/19 08:59 Last Admin: 03/20/19 13:55 Dose: 300 mg Documented by: Glucagon (Glucagen) 1 mg IM UD PRN; Protocol PRN Reason: Hypoglycemia Protocol Stop: 04/16/19 10:14 Glucose (Glucose 40%) 15 - 30 gm PO UD PRN; Protocol PRN Reason: Hypoglycemia Protocol Stop: 04/16/19 10:14 Glucose (Dex4 Glucose) 4 - 8 tabs PO UD PRN; Protocol PRN Reason: Hypoglycemia Protocol Stop: 04/16/19 10:14 Guaifenesin/Codeine Phosphate (Robitussin-Ac Sugar Free) 5 ml PO Q6H PRN PRN Reason: Cough Stop: 04/16/19 14:40 Last Admin: 03/18/19 22:31 Dose: 5 ml Documented by: Insulin Aspart (Novolog Flexpen) 0 units SC ACHS [facility] Stop: 04/16/19 11:29 Last Admin: 03/20/19 12:47 Dose: 2 units Documented by: Ketorolac Tromethamine (Toradol) 15 mg IV Q6H PRN PRN Reason: Pain Stop: 03/21/19 14:12 Levothyroxine Sodium (Levothyroxine Sodium) 137 mcg PO DAILYBB [facility] Stop: 04/15/19 06:29 Last Admin: 03/20/19 06:05 Dose: 137 mcg Documented by: Miscellaneous (Carbohydrates For Hypoglycemia) 15 - 30 gm PO UD PRN PRN Reason: Hypoglycemia Treatment Stop: 04/16/19 10:14 Multivitamins/Minerals (Caltrate Plus) 1 tab PO DAILY [facility] Stop: 04/15/19 08:59 Last Admin: 03/20/19 08:21 Dose: 1 tab Documented by: Nifedipine (Procardia Xl) 30 mg PO DAILY [facility] Stop: 04/15/19 08:59 Last Admin: 03/20/19 08:20 Dose: 30 mg Documented by: Pantoprazole Sodium (Protonix) 40 mg PO DAILY [facility] Stop: 04/15/19 08:59 Last Admin: 03/20/19 08:21 Dose: 40 mg Documented by: Pramipexole Dihydrochloride (Mirapex) 0.5 mg PO HS [facility] Stop: 04/15/19 20:59 Last Admin: 03/19/19 20:08 Dose: 0.5 mg Documented by: Tobramycin/Dexamethasone (Tobradex Oph) 1 drops OPR Q4HWA [facility] Stop: 04/17/19 11:59 Last Admin: 03/20/19 12:16 Dose: Not Given Documented by: Triamcinolone Acetonide (Kenalog 0.025%) 1 appln TOP BID [facility] Stop: 04/15/19 08:59 Last Admin: 03/20/19 08:22 Dose: 1 appln Documented by: Vitamin D (Vitamin D3) 1,000 units PO DAILY [facility] Stop: 04/15/19 08:59 Last Admin: 03/20/19 08:21 Dose: 1,000 units Documented by: Vitamin E (Vitamin E) 800 units PO DAILY [facility] Stop: 04/15/19 08:59 Last Admin: 03/20/19 08:21 Dose: 800 units Documented by: Vitamin E (Vitamin E) 200 units PO DAILY [facility] Stop: 04/15/19 08:59 Last Admin: 03/20/19 08:20 Dose: 200 units Documented by: PG Care Time/CCT Total # of Minutes Spent Total Time Spent with Patient: Total time spent is greater than 50% in coordination of care (as documented) at patient's floor/unit and/or counseling patient:
[2019-03-20] MEDS: PRAMIPEXOLE DIHYDROCHLO 0.5 MG TAB PO SCH (20:21)
[2019-03-21] MEDS: ALBUT/IPRATROP 3MG/0.5MG NEB 3 ML VIAL NEB SCH ×6 (03:35→23:07)
[2019-03-21] MEDS: LEVOTHYROXINE SODIUM 137 MCG TABLET PO SCH (06:13)
[2019-03-21] MEDS: INSULIN ASPART 100 UNITS/ML 3 ML PEN SC SCH ×4 (08:50→21:55)
[2019-03-21] MEDS: PANTOprazole 40 MG TAB PO SCH (08:51)
[2019-03-21] MEDS: GABAPENTIN 300 MG CAP PO SCH ×3 (08:51→21:09)
[2019-03-21] MEDS: NIFEdipine EXTENDED REL 30 MG TABCR PO SCH (08:51)
[2019-03-21] MEDS: AMOXICILLIN/CLAVULANATE 875 MG TAB PO SCH ×2 (08:51→17:13)
[2019-03-21] MEDS: ASPIRIN 325 MG ECTAB PO SCH (08:51)
[2019-03-21] MEDS: ASCORBIC ACID 500 MG TAB PO SCH (08:51)
[2019-03-21] MEDS: ALLOPURINOL 100 MG TAB PO SCH ×3 (08:51→21:09)
[2019-03-21] MEDS: CHOLECALCIFEROL 1,000 UNITS TAB PO SCH (08:51)
[2019-03-21] MEDS: FUROSEMIDE 80 MG TAB PO SCH ×2 (08:51→17:14)
[2019-03-21] MEDS: CALCIUM 600MG + VIT D 400 IU TAB PO SCH (08:51)
[2019-03-21] MEDS: TOCOPHERYL, DL-ALPHA 400 UNITS CAP PO SCH (08:51)
[2019-03-21] MEDS: OMEGA-3 (PURIFIED FISH OIL) 1 GM CAP PO SCH (08:51)
[2019-03-21] MEDS: ENOXAPARIN INJ 40 MG/0.4 ML SYR SQ SCH (08:52)
[2019-03-21] MEDS: TRIAMCINOLONE ACET 0.025% CR 15 GM TUBE TOP SCH ×2 (08:52→21:11)
[2019-03-21] MEDS: TOBRAMYCIN/DEXAMETHASONE OPH SUSP 2.5 ML BTL OPR SCH ×4 (08:52→21:07)
[2019-03-21] MEDS: TOCOPHERYL, DL-ALPHA 100 UNITS CAP PO SCH (08:52)
[2019-03-21] MEDS: DOCUSATE SODIUM 100 MG CAP PO SCH (08:53)
--- NOTE | 2019-03-21 17:58 | Hospitalist Progress Note ---
Date of Service March 21, 2019 Assessment & Plan (1) HCAP (healthcare-associated pneumonia): fever and cough x 3 days prior to admission, she had been admitted to hospital recently CT chest shows right lower lobe consolidation treated with Zosyn and Vancomycin initially stopped the Vancomycin on 03/18 since MRSA swab negative treated with Zosyn, change to Augmentin on 03/19 complete a 7 day course total --today's dose is the last day of Augmentin Remains afebrile, no leukocytosis Much improved overall -Continue nebulizer treatments scheduled Initially there were concerns for possible aspiration pneumonia consulted speech, normal swallowing function aspiration pneumonia ruled out (2) SOB (shortness of breath): due to pneumonia hypoxia resolved as well as dyspnea (3) Type 2 diabetes mellitus: diabetic diet Novolog SS -Check hemoglobin A1c in the morning monitor for hypoglycemia, no episodes (4) Hypertension: continue Lasix, nifedipine, BP stable (5) Hypercholesteremia: Fish oil (6) Fatty liver: Needs weight loss and low carbohydrate diet (7) Depression: Stable -Not currently on any medication for this (8) Arthritis: severe pain in back and shoulders bilaterally use Diclofenac gel and Toradol doubt she would be a surgical candidate for shoulders due to comorbidities (9) Anxiety: Stable -Not currently on medication for this (10) Hypothyroidism: TSH 4.48 here -Continue Synthroid (11) Morbid obesity: BMI 44.9 -Needs weight loss low-carb diet (12) Anemia: Hemoglobin stable at 11.8 on admission Hemoglobin was 11.2 on 02/22/2019 Hemoglobin is now 10.0, normocytic I do not see any iron studies, B12 or folate in the laboratory history repeat CBC tomorrow, no signs of blood loss line-check iron studies, B12, folate (13) GERD (gastroesophageal reflux disease): Continue Prilosec (14) Weakness: consult PT/OT per patient, she was very weak at [facility] she was just starting to stand up and transfer but was not walking she is open to returning to [facility] PT note recommends a return to rehab Is medically stable for discharge -Awaiting insurance authorization and bed availability will need acceptance and insurance auth daughter requests that she is called once we figure out if she is going so she does not drive to [place] unecessarily Subjective Patient feeling great today, much better than upon admission. She remains afebrile. Reports only coughing up minimal yellow sputum. No chest pain or shortness of breath. No diarrhea or abdominal pain. She is tolerating p.o. just fine. She reports still feeling weaker than at her baseline and only sat on the side of the bed today. Typically, she can assist with transfers to the wheelchair and walk 5-10 steps. Review of Systems Review of Systems: All systems reviewed & are unremarkable except as noted in HPI & below Physical Exam Constitutional: WD/WN, vitals as above + obese; no acute distress Eyes: PERRL, conjunctivae normal, anicteric sclerae ENMT: external ear and nose normal, oropharynx normal Neck: trachea midline, no thyromegaly Respiratory: normal respiratory effort; no respiratory distress Auscultation: + crackles (At right base); no wheezes Cardiovascular: Rate/Rhythm: regular rate and regular rhythm Heart Sounds: no murmur Extremities: + edema (1+ pitting edema to the knees bilaterally- chronic, with chronic venous stasis changes) Gastrointestinal (Abdomen): normal bowel sounds, soft, nontender, no hepatosplenomegaly Musculoskeletal: Extremities: extremities normal to inspection; no cyanosis and no clubbing Skin: no rashes, warm and dry Neurologic: moves all extremities and awake; no focal motor deficits Psychiatric: A+Ox3, euthymic affect Results & Data Vital Signs (Past 12 Hours) Vital Signs Temp Pulse Pulse Resp BP Pulse Ox 03/21/19 15:25 36.7 C 90 20 127/79 94 03/21/19 15:06 82 16 91 03/21/19 11:13 79 18 93 03/21/19 07:14 94 H 18 97 03/21/19 07:09 36.5 C 84 20 119/67 94 Laboratory Results 03/21/19 03/21/19 03/21/19 Range/Units 16:54 11:27 07:30 POC Glucose 109 H 107 H 98 (70-99) 03/20/19 Range/Units 20:19 POC Glucose 137 H (70-99) PG Care Time/CCT Total # of Minutes Spent Total Time Spent with Patient: Total time spent is greater than 50% in coordination of care (as documented) at patient's floor/unit and/or counseling patient:
[2019-03-21] MEDS: PRAMIPEXOLE DIHYDROCHLO 0.5 MG TAB PO SCH (21:10)
[2019-03-22] MEDS: ALBUT/IPRATROP 3MG/0.5MG NEB 3 ML VIAL NEB SCH ×6 (03:00→23:13)
[2019-03-22] MEDS: LEVOTHYROXINE SODIUM 137 MCG TABLET PO SCH (06:10)
[2019-03-22 06:19] LABS: Basophils # (auto) 0.01 K/uL (0-0.2); Basophils % (auto) 0.1 %; Eosinophils # (auto) 0.37 K/uL (0-0.5); Eosinophils % (auto) 5.3 %; Hematocrit (blood only) 36.5 % (37-47); Hemoglobin 11.1 g/dL (12.0-16.0); Immature Granulocytes # (auto) 0.05 K/uL (0.00-0.02); Immature Granulocytes % (auto) 0.7 %; Lymphocytes # (auto) 1.27 K/uL (1.2-3.4); Lymphocytes % (auto) 18.1 %; Mean Corpuscular Hgb Conc 30.4 g/dL (32-36); Mean Corpuscular Volume 84.9 fL (80-100); Mean Platelet Volume 10.4 fL (7.4-10.4); Monocytes # (auto) 0.59 K/uL (0.11-0.59); Monocytes % (auto) 8.4 %; Neutrophils # (auto) 4.73 K/uL (1.4-6.5); Neutrophils % (auto) 67.4 %; Platelet Count 209 K/uL (130-400); RDW Standard Deviation 57.7 fL (36.4-46.3); White Blood Count 7.02 K/uL (4.8-10.8)
[2019-03-22 06:43] LABS: Estimated Average Glucose 134 mg/dl; Hemoglobin A1C 6.3 % (4.5-5.6)
[2019-03-22 06:49] LABS: Calcium 8.5 mg/dl (8.5-10.1); Creatinine Clr Calc Pharmacy 72.6 ml/min; Est GFR (African American) 89.3; Est GFR (Non-African American) 77.1; Potassium 3.1 mmol/L (3.5-5.1)
[2019-03-22 06:54] LABS: Ferritin 28.9 ng/ml (8-388)
[2019-03-22 07:55] LABS: Folate (Folic Acid) 10.99 ng/ml (>5.38)
[2019-03-22] MEDS: TOBRAMYCIN/DEXAMETHASONE OPH SUSP 2.5 ML BTL OPR SCH ×4 (08:37→20:13)
[2019-03-22] MEDS: DOCUSATE SODIUM 100 MG CAP PO SCH (08:38)
[2019-03-22] MEDS: OMEGA-3 (PURIFIED FISH OIL) 1 GM CAP PO SCH (08:43)
[2019-03-22] MEDS: ASCORBIC ACID 500 MG TAB PO SCH (08:43)
[2019-03-22] MEDS: GABAPENTIN 300 MG CAP PO SCH ×3 (08:44→21:34)
[2019-03-22] MEDS: ALLOPURINOL 100 MG TAB PO SCH ×3 (08:44→21:34)
[2019-03-22] MEDS: ENOXAPARIN INJ 40 MG/0.4 ML SYR SQ SCH (08:44)
[2019-03-22] MEDS: ASPIRIN 325 MG ECTAB PO SCH (08:44)
[2019-03-22] MEDS: TOCOPHERYL, DL-ALPHA 100 UNITS CAP PO SCH (08:44)
[2019-03-22] MEDS: CALCIUM 600MG + VIT D 400 IU TAB PO SCH (08:44)
[2019-03-22] MEDS: TOCOPHERYL, DL-ALPHA 400 UNITS CAP PO SCH (08:44)
[2019-03-22] MEDS: PANTOprazole 40 MG TAB PO SCH (08:44)
[2019-03-22] MEDS: CHOLECALCIFEROL 1,000 UNITS TAB PO SCH (08:44)
[2019-03-22] MEDS: NIFEdipine EXTENDED REL 30 MG TABCR PO SCH (08:44)
[2019-03-22] MEDS: FUROSEMIDE 80 MG TAB PO SCH ×2 (08:44→16:59)
[2019-03-22] MEDS: TRIAMCINOLONE ACET 0.025% CR 15 GM TUBE TOP SCH ×2 (08:45→21:36)
[2019-03-22] MEDS: INSULIN ASPART 100 UNITS/ML 3 ML PEN SC SCH ×4 (08:50→21:35)
[2019-03-22] MEDS: PRAMIPEXOLE DIHYDROCHLO 0.5 MG TAB PO SCH (21:34)
--- NOTE | 2019-03-22 23:49 | Hospitalist Progress Note ---
Date of Service March 22, 2019 Assessment & Plan (1) HCAP (healthcare-associated pneumonia): fever and cough x 3 days prior to admission, she had been admitted to hospital recently CT chest shows right lower lobe consolidation treated with Zosyn and Vancomycin initially stopped the Vancomycin on 03/18 since MRSA swab negative treated with Zosyn, change to Augmentin on 03/19 completed a 7 day course total of abx Remains afebrile, no leukocytosis, improved -Continue nebulizer treatments scheduled -Initially there were concerns for possible aspiration pneumonia -consulted speech, normal swallowing function -aspiration pneumonia ruled out (2) SOB (shortness of breath): due to pneumonia hypoxia resolved as well as dyspnea (3) Type 2 diabetes mellitus: diabetic diet Novolog SS hemoglobin A1c great at 6.3% (4) Hypertension: continue Lasix, nifedipine, BP stable (5) Hypercholesteremia: Fish oil (6) Fatty liver: Needs weight loss and low carbohydrate diet (7) Depression: Stable -Not currently on any medication for this (8) Arthritis: severe pain in back and shoulders bilaterally use Diclofenac gel and Toradol doubt she would be a surgical candidate for shoulders due to comorbidities (9) Anxiety: Stable -Not currently on medication for this (10) Hypothyroidism: TSH 4.48 here -Continue Synthroid (11) Morbid obesity: BMI 44.9 -Needs weight loss low-carb diet (12) Anemia: Hemoglobin stable at 11.8 on admission Hemoglobin was 11.2 on 02/22/2019 Hemoglobin is now 10.0, normocytic iron studies with iron deficiency B12 and folate normal -start po iron 325 bid -advise outpt GI workup (13) GERD (gastroesophageal reflux disease): Continue Prilosec (14) Weakness: consult PT/OT per patient, she was very weak at [facility] she was just starting to stand up and transfer but was not walking she is open to returning to [facility] PT note recommends a return to rehab Is medically stable for discharge -Awaiting insurance authorization and bed availability will need acceptance and insurance auth daughter requests that she is called once we figure out if she is going so she does not drive to [place] unecessarily (15) DVT prophylaxis: Lovenox Subjective Feeling better,not SOB, no other complaints except a small wound in her buttocks that dimas when she urinates Review of Systems Review of Systems: All systems reviewed & are unremarkable except as noted in HPI & below Physical Exam Constitutional: WD/WN, vitals as above + obese; no acute distress Eyes: PERRL, conjunctivae normal, anicteric sclerae ENMT: external ear and nose normal, oropharynx normal Neck: trachea midline, no thyromegaly Respiratory: normal respiratory effort; no respiratory distress Auscultation: + crackles (At right base); no wheezes Cardiovascular: Rate/Rhythm: regular rate and regular rhythm Heart Sounds: no murmur Extremities: + edema (1+ pitting edema to the knees bilaterally- chronic, with chronic venous stasis changes) Gastrointestinal (Abdomen): normal bowel sounds, soft, nontender, no hepatosplenomegaly Musculoskeletal: Extremities: extremities normal to inspection; no cyanosis and no clubbing Skin: + wound (small crack at bottom of gluteal cleft approx 1 cm in length, mild erythma) Neurologic: moves all extremities and awake; no focal motor deficits Psychiatric: A+Ox3, euthymic affect Results & Data Vital Signs (Past 12 Hours) Vital Signs Temp Pulse Resp BP BP Pulse Ox 03/22/19 23:13 84 16 95 03/22/19 23:00 36.6 C 84 19 110/67 94 03/22/19 18:57 88 16 92 03/22/19 15:21 36.5 C 91 H 18 106/67 92 Laboratory Results 03/22/19 03/22/19 03/22/19 Range/Units 21:01 16:48 11:28 POC Glucose 124 H 128 H 112 H (70-99) Vitamin B12 (211-911) pg/ml Folate (>5.38) ng/ml 03/22/19 03/22/19 Range/Units 07:57 05:58 POC Glucose 101 H (70-99) Vitamin B12 414 (211-911) pg/ml Folate 10.99 (>5.38) ng/ml PG Care Time/CCT Total # of Minutes Spent Total Time Spent with Patient: Total time spent is greater than 50% in coordination of care (as documented) at patient's floor/unit and/or counseling patient:
[2019-03-23] MEDS: ALBUT/IPRATROP 3MG/0.5MG NEB 3 ML VIAL NEB SCH ×5 (04:06→19:04)
[2019-03-23] MEDS: LEVOTHYROXINE SODIUM 137 MCG TABLET PO SCH (06:38)
[2019-03-23] MEDS: GABAPENTIN 300 MG CAP PO SCH ×3 (07:39→20:38)
[2019-03-23] MEDS: PANTOprazole 40 MG TAB PO SCH (07:39)
[2019-03-23] MEDS: NIFEdipine EXTENDED REL 30 MG TABCR PO SCH (07:39)
[2019-03-23] MEDS: FUROSEMIDE 80 MG TAB PO SCH ×2 (07:40→16:57)
[2019-03-23] MEDS: ASCORBIC ACID 500 MG TAB PO SCH (07:40)
[2019-03-23] MEDS: TOCOPHERYL, DL-ALPHA 100 UNITS CAP PO SCH (07:40)
[2019-03-23] MEDS: OMEGA-3 (PURIFIED FISH OIL) 1 GM CAP PO SCH (07:40)
[2019-03-23] MEDS: TRIAMCINOLONE ACET 0.025% CR 15 GM TUBE TOP SCH ×2 (07:41→20:40)
[2019-03-23] MEDS: TOCOPHERYL, DL-ALPHA 400 UNITS CAP PO SCH (07:41)
[2019-03-23] MEDS: CHOLECALCIFEROL 1,000 UNITS TAB PO SCH (07:41)
[2019-03-23] MEDS: ALLOPURINOL 100 MG TAB PO SCH ×3 (07:41→20:39)
[2019-03-23] MEDS: ASPIRIN 325 MG ECTAB PO SCH (07:41)
[2019-03-23] MEDS: CALCIUM 600MG + VIT D 400 IU TAB PO SCH (07:41)
[2019-03-23] MEDS: TOBRAMYCIN/DEXAMETHASONE OPH SUSP 2.5 ML BTL OPR SCH ×4 (07:42→19:33)
[2019-03-23] MEDS: ENOXAPARIN INJ 40 MG/0.4 ML SYR SQ SCH (07:42)
[2019-03-23] MEDS: DOCUSATE SODIUM 100 MG CAP PO SCH (07:47)
[2019-03-23] MEDS: INSULIN ASPART 100 UNITS/ML 3 ML PEN SC SCH ×4 (08:39→20:40)
[2019-03-23] MEDS: FERROUS SULFATE 325 MG TAB PO SCH ×2 (10:17→16:55)
--- NOTE | 2019-03-23 12:39 | Hospitalist Progress Note ---
Date of Service March 23, 2019 Assessment & Plan (1) HCAP (healthcare-associated pneumonia): fever and cough x 3 days prior to admission, she had been admitted to hospital recently CT chest shows right lower lobe consolidation treated with Zosyn and Vancomycin initially stopped the Vancomycin on 03/18 since MRSA swab negative treated with Zosyn, change to Augmentin on 03/19 completed a 7 day course total of abx Remains afebrile, no leukocytosis, improved -Continue nebulizer treatments scheduled but change from every 4 to 4 times daily -Initially there were concerns for possible aspiration pneumonia -consulted speech, normal swallowing function -aspiration pneumonia ruled out (2) SOB (shortness of breath): due to pneumonia hypoxia improved, dyspnea resolved (3) Type 2 diabetes mellitus: diabetic diet Novolog SS hemoglobin A1c great at 6.3% (4) Hypertension: continue Lasix, nifedipine, BP stable (5) Hypercholesteremia: Fish oil (6) Fatty liver: Needs weight loss and low carbohydrate diet (7) Depression: Stable -Not currently on any medication for this (8) Arthritis: severe pain in back and shoulders bilaterally use Diclofenac gel and Toradol doubt she would be a surgical candidate for shoulders due to comorbidities (9) Anxiety: Stable -Not currently on medication for this (10) Hypothyroidism: TSH 4.48 here -Continue Synthroid (11) Morbid obesity: BMI 44.9 -Needs weight loss low-carb diet (12) Anemia: Hemoglobin stable at 11.8 on admission Hemoglobin was 11.2 on 02/22/2019 Hemoglobin is now 10.0, normocytic iron studies with iron deficiency She does report occasional bright red blood per rectum from hemorrhoids bleeding. No melena, no breakthrough heartburn symptoms. B12 and folate normal -start po iron 325 bid -advise outpt GI workup-she had colonoscopy she thinks about 5 years ago that showed hemorrhoids (13) GERD (gastroesophageal reflux disease): Continue Prilosec (14) Weakness: consult PT/OT per patient, she was very weak at [facility] she was just starting to stand up and transfer but was not walking she is open to returning to [facility] PT note recommends a return to rehab Is medically stable for discharge -Awaiting insurance authorization hopeful for discharge tomorrow (15) DVT prophylaxis: Lovenox Subjective Patient reports cough with minimal sputum production. No chest pain or shortness of breath. She did drop down to the low 80s overnight with sleeping and had to be placed back on oxygen. She is now weaned off the oxygen to room air while awake. Review of Systems Review of Systems: All systems reviewed & are unremarkable except as noted in HPI & below (Reports her bottom is feeling much less painful, no abdominal pain) Physical Exam Constitutional: WD/WN, vitals as above + obese; no acute distress Eyes: PERRL, conjunctivae normal, anicteric sclerae ENMT: external ear and nose normal, oropharynx normal Neck: trachea midline, no thyromegaly Respiratory: normal respiratory effort; no respiratory distress Auscultation: + crackles (At right base); no wheezes Cardiovascular: Rate/Rhythm: regular rate and regular rhythm Heart Sounds: no murmur Extremities: + edema (trace edema to the knees bilaterally-w/ chronic venous stasis changes) Gastrointestinal (Abdomen): normal bowel sounds, soft, nontender, no hepatosplenomegaly Musculoskeletal: Extremities: extremities normal to inspection; no cyanosis and no clubbing Skin: no rashes, warm and dry Neurologic: moves all extremities and awake; no focal motor deficits Psychiatric: A+Ox3, euthymic affect Results & Data Vital Signs (Past 12 Hours) Vital Signs Temp Pulse Resp BP Pulse Ox 03/23/19 11:18 81 18 96 03/23/19 07:34 36.3 C L 77 16 119/73 96 03/23/19 07:28 78 18 96 03/23/19 05:37 96 03/23/19 04:09 71 18 78 L Laboratory Results 03/23/19 03/23/19 03/22/19 Range/Units 11:55 07:57 21:01 POC Glucose 106 H 105 H 124 H (70-99) 03/22/19 Range/Units 16:48 POC Glucose 128 H (70-99) PG Care Time/CCT Total # of Minutes Spent Total Time Spent with Patient: Total time spent is greater than 50% in coordination of care (as documented) at patient's floor/unit and/or counseling patient:
[2019-03-23] MEDS: PRAMIPEXOLE DIHYDROCHLO 0.5 MG TAB PO SCH (20:38)
[2019-03-24] MEDS: LEVOTHYROXINE SODIUM 137 MCG TABLET PO SCH (05:50)
[2019-03-24] MEDS: ALBUT/IPRATROP 3MG/0.5MG NEB 3 ML VIAL NEB SCH ×3 (07:10→15:28)
[2019-03-24] MEDS: FUROSEMIDE 80 MG TAB PO SCH (07:30)
[2019-03-24] MEDS: DICLOFENAC SOD 1% GEL 100 GM TUBE EXT PRN (07:31)
[2019-03-24] MEDS: TOCOPHERYL, DL-ALPHA 100 UNITS CAP PO SCH (07:32)
[2019-03-24] MEDS: ASCORBIC ACID 500 MG TAB PO SCH (07:32)
[2019-03-24] MEDS: OMEGA-3 (PURIFIED FISH OIL) 1 GM CAP PO SCH (07:32)
[2019-03-24] MEDS: TOCOPHERYL, DL-ALPHA 400 UNITS CAP PO SCH (07:32)
[2019-03-24] MEDS: ASPIRIN 325 MG ECTAB PO SCH (07:33)
[2019-03-24] MEDS: NIFEdipine EXTENDED REL 30 MG TABCR PO SCH (07:33)
[2019-03-24] MEDS: DOCUSATE SODIUM 100 MG CAP PO SCH (07:33)
[2019-03-24] MEDS: CALCIUM 600MG + VIT D 400 IU TAB PO SCH (07:33)
[2019-03-24] MEDS: ALLOPURINOL 100 MG TAB PO SCH ×2 (07:33→15:04)
[2019-03-24] MEDS: CHOLECALCIFEROL 1,000 UNITS TAB PO SCH (07:34)
[2019-03-24] MEDS: FERROUS SULFATE 325 MG TAB PO SCH (07:34)
[2019-03-24] MEDS: PANTOprazole 40 MG TAB PO SCH (07:34)
[2019-03-24] MEDS: GABAPENTIN 300 MG CAP PO SCH ×2 (07:34→15:04)
[2019-03-24] MEDS: TRIAMCINOLONE ACET 0.025% CR 15 GM TUBE TOP SCH (07:35)
[2019-03-24] MEDS: TOBRAMYCIN/DEXAMETHASONE OPH SUSP 2.5 ML BTL OPR SCH ×2 (07:35→12:59)
[2019-03-24] MEDS: ENOXAPARIN INJ 40 MG/0.4 ML SYR SQ SCH (07:37)
[2019-03-24] MEDS: INSULIN ASPART 100 UNITS/ML 3 ML PEN SC SCH ×2 (08:59→12:58)
[2019-03-24] MEDS ORDERED: MICONAZOLE NITRATE POWDER 43 GM ONE (11:10)
--- NOTE | 2019-03-24 14:21 | Discharge Summary ---
Date of Service March 24, 2019 Admission HPI Per Admitting Provider 79-year-old female with history of DM2, HTN, HLD, hypothyroidism, peripheral vascular disease, chronic venous insufficiency, GERD, anxiety, depression, gout, RLS, osteoarthritis presents with fever and cough x3 days. Per daughter she was at senior care, [place] and was having on and off fever and cough which was thought to be a viral etiology. She returned from [facility] yesterday and is complaining of difficulty breathing as well. Patient difficult to arouse thus history and review of systems limited. Of note: She was hospitalized from 02/17/2019 to 02/23/2019 status post fall for right ankle sprain and was discharged to rehab for deconditioning. Principal Diagnosis Pneumonia Discharge Exam Constitutional WD/WN, vitals as above + obese; no acute distress Eyes PERRL, conjunctivae normal, anicteric sclerae ENMT external ear and nose normal, oropharynx normal Neck trachea midline, no thyromegaly Respiratory normal respiratory effort; no respiratory distress Auscultation: + crackles (At right base); no wheezes Cardiovascular Rate/Rhythm: regular rate and regular rhythm Heart Sounds: no murmur Extremities: + edema (trace edema to the knees bilaterally-w/ chronic venous stasis changes) Gastrointestinal (Abdomen) normal bowel sounds, soft, nontender, no hepatosplenomegaly Musculoskeletal Extremities: extremities normal to inspection; no cyanosis and no clubbing Skin no rashes, warm and dry + wound (small crack at bottom of gluteal cleft approx 1 cm in length, mild erythma) Neurologic moves all extremities and awake; no focal motor deficits Psychiatric A+Ox3, euthymic affect Discharge Data Allergies Allergy/AdvReac Type Severity Reaction Status Date / Time adhesive AdvReac Unknown Bandaids - Verified 03/16/19 02:54 Unknown Consultations None Ordered Studies 03/16/19 01:56 CT angio chest PE protocol Urgent CT lumbar spine wo con Urgent Chest x-ray Hospital Course (1) HCAP (healthcare-associated pneumonia): fever and cough x 3 days prior to admission, she had been admitted to hospital recently and therefore was treated for gram-negative pneumonia CT chest shows right lower lobe consolidation treated with Zosyn and Vancomycin initially stopped the Vancomycin on 03/18 since MRSA swab negative treated with Zosyn, change to Augmentin on 03/19 completed a 7 day course total of abx Remains afebrile, no leukocytosis, improved -Should have a repeat chest x-ray in 4 to 6 weeks to ensure resolution of infiltrate -Continue nebulizer treatments scheduled 4 times daily -Initially there were concerns for possible aspiration pneumonia -consulted speech, normal swallowing function -aspiration pneumonia ruled out (2) SOB (shortness of breath): due to pneumonia hypoxia improved, dyspnea resolved -Still requiring 2 L nasal cannula nightly-would continue this and wean off as able to at rehab facility (3) Type 2 diabetes mellitus: diabetic diet Novolog SS hemoglobin A1c great at 6.3% (4) Hypertension: continue Lasix, nifedipine, BP stable (5) Hypercholesteremia: Fish oil (6) Fatty liver: Needs weight loss and low carbohydrate diet (7) Depression: Stable -Not currently on any medication for this (8) Arthritis: severe pain in back and shoulders bilaterally use Diclofenac gel and Toradol doubt she would be a surgical candidate for shoulders due to comorbidities (9) Anxiety: Stable -Not currently on medication for this (10) Hypothyroidism: TSH 4.48 here -Continue Synthroid (11) Morbid obesity: BMI 44.9 -Needs weight loss low-carb diet (12) Anemia: Hemoglobin stable at 11.8 on admission Hemoglobin was 11.2 on 02/22/2019 Hemoglobin is now 10.0, normocytic iron studies with iron deficiency She does report occasional bright red blood per rectum from hemorrhoids bleeding. No melena, no breakthrough heartburn symptoms. B12 and folate normal -started po iron 325 bid -advise outpt GI workup-she had colonoscopy she thinks about 5 years ago that showed hemorrhoids (13) GERD (gastroesophageal reflux disease): Continue Prilosec (14) Weakness: Generalized weakness secondary to multiple recent hospitalizations and immobility Consult PT/OT per patient, she was very weak at [facility] she was just starting to stand up and transfer but was not walking she is open to returning to [facility] PT note recommends a return to rehab Is medically stable for discharge today (15) DVT prophylaxis: Lovenox was provided Disposition-discharge to rehab Total Time Total Time Spent Total Time Spent (In Minutes): Greater than 30 minutes Total Time Includes: Examination of the Patient, Discharge Planning and Medication Reconciliation Discharge Plan Discharge Items Patient Disposition: Transfer Long Term Fac Reason For Visit: COUGH AND FEVER Discharge Diagnosis: Pneumonia Condition: Good Discharge Goals: Decrease discomfort, Diagnostic testing, Improve disease control, Learn about illness and Therapeutic intervention Activity: As commented below Lifting: None Bathing: No limitations Exercise/Sports: Gradually increase as tolerated Exercise Comment: With assistance Non-emergency contact: Primary Care Provider Call non-emergency contact if: you have any medication questions, your symptoms worsen and your temperature is above 100.5 Follow-up/Referrals: Maria Esther Abdullahi DO [Primary Care Provider] - Diet: Carb Consistent or DM2 and Heart Healthy Addtl Provider Instructions: Patient was admitted for pneumonia and is deconditioned prior to her baseline. She needs physical and occupational therapy. She is Kory completed her course of antibiotics for her pneumonia. Pulmonary nodule- CT of the chest incidentally noted a 2 cm left lower lobe nodule-this needs a repeat CT scan of the chest in 2 months for surveillance Prescriptions: New ipratropium-albuterol 0.5 mg-3 mg(2.5 mg base)/3 mL Solution For Nebulization 3 ml NEB QIDR Qty: 90 RF: 0 acetaminophen [Mapap (acetaminophen)] 325 mg Tablet 650 mg PO Q4H PRN (Reason: pain) Qty: 30 RF: 0 ferrous sulfate 325 mg (65 mg iron) Tablet,Delayed Release (Dr/Ec) 325 mg PO BIDM Qty: 60 RF: 0 Continued nifedipine 30 mg tablet extended release 30 mg PO DAILY Qty: 30 RF: 0 vitamin E 1,000 unit Capsule 1,000 unit PO DAILY RF: 0 pramipexole 0.5 mg Tablet 0.5 mg PO HS RF: 0 calcium carbonate [Calcium 600] 600 mg calcium (1,500 mg) Tablet 600 mg PO DAILY RF: 0 triamcinolone acetonide 0.025 % Cream 1 applic TOPICAL BID RF: 0 gabapentin 300 mg Capsule 300 mg PO TID RF: 0 omega [id number] oil [Fish Oil] 1,000 mg (120 mg-180 mg) Capsule 1 cap PO DAILY RF: 0 furosemide [Lasix] 40 mg Tablet 80 mg PO BID RF: 0 ascorbic acid (vitamin C) 1,000 mg Tablet 1 g PO DAILY RF: 0 aspirin 325 mg Tablet 325 mg PO DAILY RF: 0 allopurinol [Zyloprim] 100 mg Tablet 100 mg PO TID RF: 0 docusate sodium 100 mg Tablet 200 mg PO DAILY RF: 0 cholecalciferol (vitamin D3) [Vitamin D3] 1,000 unit Capsule 1,000 unit PO DAILY RF: 0 Prilosec OTC 20 mg Tablet,Delayed Release (Dr/Ec) 40 mg PO DAILY RF: 0 levothyroxine 137 mcg Capsule 137 mcg PO DAILY RF: 0 Changed potassium chloride 10 mEq Tablet Extended Release 20 meq PO DAILY Qty: 0 RF: 0 diclofenac sodium [Voltaren] 1 % Gel 1 applic EXT Q8 PRN (Reason: pain) Qty: 1 RF: 0 Stand-Alone Forms: [employer] [facility] [employer]/Other Patient Handouts: Diabetes Type 2 Coping, Diabetes Meal Planning Discharge Orders: Discharge Order (Routine); Ordered 03/24/19 Ordered By: Sara Calhoun Skilled Items Patient informed of condition?: Yes DNR: No Discharge Level of Care: Skilled Communicable Disease: No Discharge Prognosis: Improving Admission Data Admit Date/Time: 03/16/19 04:27 Attending Provider: Sara Calhoun Admit Provider: Duane Smith Primary Care Provider: Maria Esther Abdullahi Other Providers: Duane Smith Service: Medical Other Pending Studies at Discharge: No
== END 2019-03-24 17:21 | DRG 194 ==
LOC: ED 23:52 → SUATTDRO 03-16 04:27 → 2S 03-16 04:27 → 4E 03-18 11:27

== ENCOUNTER 2022-01-17 05:42 | Observation (INO) ==
[2022-01-17] MEDS ORDERED: CEFEPIME 2,000 MG/20 ML VIAL IV STA (06:35)
[2022-01-17] MEDS ORDERED: SODIUM CHLORIDE 0.9% 1000ML 1,000 ML IV SCH (06:45)
[2022-01-17 07:03] LABS: Alanine Aminotransferase 9 U/L (7-52); Albumin Globulin Ratio 1.5 (0.9-2); Alkaline Phosphatase 70 U/L (34-104); Anion Gap 7 (3-11); Aspartate Aminotransferase 14 U/L (13-39); BUN Creatinine Ratio 26.8 (10-20); Bilirubin,Total 0.6 mg/dl (0.2-1.0); Blood Urea Nitrogen 26 mg/dl (6-23); Calcium 9.2 mg/dl (8.5-10.1); Carbon Dioxide 32 mmol/L (21-32); Chloride 100 mmol/L (98-107); Est GFR (African American) 63.5 ml/min; Est GFR (Non-African American) 54.8 ml/min; Globulin 2.7 gm/dl (2.5-4.0); Glucose 131 mg/dl (70-99(Fasting)); Potassium 4.2 mmol/L (3.5-5.1); Sodium 139 mmol/L (136-145); Total Protein 6.7 gm/dl (6.0-8.3)
--- NOTE | 2022-01-17 07:07 | Emergency Department Note ---
History of Present Illness General Chief complaint: Shortness of Breath/Dyspnea Stated complaint: SOB, Weakness, Unable to Ambulate Time Seen by Provider: 01/17/22 06:25 History of Present Illness 81-year-old female presents to the ED with a chief complaint of generalized weakness and some shortness of breath. The patient symptoms started this morning. She does have a history of type 2 diabetes. She also does use nebulizers at home since having pneumonia several years ago. She is an ex- smoker many years ago. The patient states that this morning she was too weak to stand. She also had some chills last night. She noticed some swelling of her legs today as well. EMS had her oxygen saturations of 82% on room air. She was 93% when she arrived after nebulizer treatment in route. At rest on room air, the patient's oxygen saturations do drop into the mid to low 80s. The patient provides no additional complaints. No abdominal pains. No chest pains. No urinary symptoms. Home Medications Medication Instructions Recorded Confirmed Type ascorbic acid (vitamin C) 1,000 mg 1 g PO QAM 10/26/18 01/17/22 History tablet aspirin 325 mg tablet 325 mg PO QAM 10/26/18 01/17/22 History acetaminophen 325 mg tablet (Mapap 650 mg PO Q4H PRN #30 tab 03/24/19 01/17/22 Rx (acetaminophen)) docusate sodium 100 mg tablet 100 mg PO TID tab 05/03/19 01/17/22 History gabapentin 300 mg capsule 300 mg PO TID #90 cap 02/21/21 01/17/22 Rx allopurinol 100 mg tablet 100 mg PO TID #270 tab 04/08/21 01/17/22 Rx (Zyloprim) calcium carbonate 600 mg calcium 600 mg PO QAM 05/06/21 01/17/22 History (1,500 mg) tablet cefadroxil 500 mg capsule 500 mg PO BID #14 cap 06/20/21 01/17/22 Rx triamcinolone acetonide 0.025 % 1 applic TOPICAL BID #454 g 06/28/21 01/17/22 Rx topical cream pramipexole 0.5 mg tablet 0.5 mg PO HS #90 tab 08/13/21 01/17/22 Rx ipratropium 0.5 mg-albuterol 3 mg 3 ml NEB QID PRN #90 ml 11/12/21 01/17/22 Rx (2.5 mg base)/3 mL nebulization soln tramadol 50 mg tablet 50 mg PO Q8H PRN #30 tab 01/13/22 01/17/22 Rx Lactobacillus acidophilus 1.5 mg 1.5 mg PO QAM 01/17/22 01/17/22 History (250 million cell) capsule (Probiotic Acidophilus) calcium phosphate,dibasic 77 400 tab PO QAM 01/17/22 01/17/22 History mg-vitamin D3 400 unit tablet cranberry fruit 450 mg tablet 450 mg PO QAM 01/17/22 01/17/22 History (cranberry) furosemide 80 mg tablet 80 mg PO QAM 01/17/22 01/17/22 History levothyroxine 125 mcg tablet 125 mcg PO QAM 01/17/22 01/17/22 History nifedipine 30 mg tablet,extended 30 mg PO QAM 01/17/22 01/17/22 History release potassium chloride 10 mEq 20 meq PO QAM 01/17/22 01/17/22 History tablet,extended release solifenacin 10 mg tablet (Vesicare) 10 mg PO QAM 01/17/22 01/17/22 History vitamin E 30 unit capsule 30 unit PO QAM 01/17/22 01/17/22 History Allergies Allergy/AdvReac Type Severity Reaction Status Date / Time latex Allergy Verified 01/17/22 07:05 adhesive AdvReac Unknown Bandaids - Verified 01/17/22 07:05 Unknown Past Med/Surg History Medical History Adrenal adenoma Ambulatory dysfunction Anemia Anxiety Arthritis Chronic venous insufficiency Depression Fatty liver GERD (gastroesophageal reflux disease) Gout History of stomach ulcers Hypercholesteremia Hypertension Hypothyroid Lumbar degenerative disc disease Morbid obesity Osteoarthritis PAD (peripheral artery disease) Right ankle sprain RLS (restless legs syndrome) Type 2 diabetes mellitus Urinary incontinence Surgical History History of bilateral knee replacement History of cholecystectomy History of hysterectomy 09/01/06 Hx of cataract surgery (~2013) 2013 S/P hemorrhoidectomy rubber banding 03/2015 S/P tonsillectomy Family History Father Myocardial infarction Diabetes Hypertension Mother Myocardial infarction Family history of gallbladder disease Brother Colorectal cancer Diabetes Sister Diabetes Breast cancer Family/Other Ovarian cancer Prostate cancer Social History Smoking Status: Never smoker Tobacco Type: Cigarettes Age Started Using Tobacco: 17; Age Quit Using Tobacco: 25; packs per day: 0.5; Second Hand Exposure: No; Hx Alcohol Use: No Hx Substance Use: No Preferred Language: French Communication Ability: Effective Visual Impairment: No Limitations Hearing Ability: Use of Hearing Aid Nurse Monitoring Required: No Beliefs That Will Affect Care: None marital status: Current Living Situation: Family current occupational status: retired Feels Safe at Home: Yes Childhood Exposure to Second-Hand Smoke: No caffeine: Yes (drinks coffee and soda) during the past year weight has: remained stable Dental Care, Regularly: No Physical Activity Frequency: Other Seatbelt Use: always Sunscreen Use: Yes Assistive Devices: None Review of Systems A total of 10 systems reviewed and were otherwise negative Physical Exam Vital Signs Vital Signs - 24 hr 01/17/22 05:50 01/17/22 06:14 01/17/22 06:15 Temperature 36.8 C Temperature Source Oral Pulse Rate 88 Pulse Rate [Finger] Respiratory Rate 16 Respiratory Effort / Characteristics Non-Labored Spontaneous Blood Pressure 121/57 L Blood Pressure [Right Arm] Blood Pressure Mean 78 Blood Pressure Mean [Right Arm] Pulse Oximetry 96 93 93 Oxygen Delivery Method Room Air Room Air Room Air Oxygen Flow Rate Sepsis Recent Fever Within 48 Hours No Sepsis New/Unexplained Change in Mental Status N/A Sepsis Action Taken by Nursing No Action Required 01/17/22 07:00 Temperature Temperature Source Pulse Rate Pulse Rate [Finger] 74 Respiratory Rate 18 Respiratory Effort / Characteristics Blood Pressure Blood Pressure [Right Arm] 114/60 Blood Pressure Mean Blood Pressure Mean [Right Arm] 78 Pulse Oximetry 97 Oxygen Delivery Method Nasal Cannula Oxygen Flow Rate 2 Sepsis Recent Fever Within 48 Hours Sepsis New/Unexplained Change in Mental Status Sepsis Action Taken by Nursing CONSTITUTIONAL/VITAL SIGNS: Reviewed / noted above. GENERAL: Non-toxic in appearance. Generalized weakness. INTEGUMENTARY: Warm, dry, and Tool. HEAD: Normocephalic. EYES: without scleral icterus or trauma. ENT/OROPHARYNX: clear and moist. LYMPHADENOPATHY/NECK: Is supple without lymphadenopathy or meningismus. RESPIRATORY: Diminished to auscultation bilaterally. No increased work of breathing. CARDIOVASCULAR: Regular rate and rhythm. GI/ABDOMEN: Soft and nontender. No organomegaly or pulsatile mass. EXTREMITIES: Warm and well perfused. Pedal edema. BACK: No CVA tenderness. NEUROLOGICAL: Intact without focal deficits. PSYCHIATRIC: normal affect. MUSCULOSKELETAL: Normally developed with good muscle tone. TRIAGE NURSING DOCUMENTATION REVIEWED. Course Administered Medications Discontinued Medications Sodium Chloride (Nss 1000ml) 1,000 mls @ 999 mls/hr IV .Q1H1M AMANDEEP Stop: 01/17/22 07:45 Last Admin: 01/17/22 06:49 Dose: 999 mls/hr Documented by: [id number] Cefepime HCl (Maxipime) 2,000 mg in 20 mls @ 5 mls/min IV NOW STA; Protocol Stop: 01/17/22 06:38 Last Admin: 01/17/22 06:49 Dose: 5 mls/min Documented by: [id number] Medical Decision Making Differential Diagnosis Differential includes acute coronary syndrome, myocardial infarction, CVA, TIA, anemia, infection, pneumonia, UTI, pyelonephritis, poor nutrition, dehydration, electrolyte disturbance,hypoglycemia. Medical Records Attestation: I reviewed the patient's medical records. Home Medications Current Medication List: was personally reviewed by me Laboratory Data Attestation: I reviewed the patient's lab results. Result diagrams: 01/17/22 06:13 01/17/22 06:13 Lab Results 01/17/22 01/17/22 01/17/22 Range/Units 06:13 06:13 06:13 WBC 12.92 H (4.8-10.8) K/uL RBC 5.00 (4.2-5.4) M/uL Hgb 14.7 (12.0-16.0) g/dL Hct 46.8 (37-47) % MCV 93.6 (80-100) fL MCH 29.4 (25-34) pg MCHC 31.4 L (32-36) g/dL RDW Std Deviation 60.8 H (36.4-46.3) fL RDW Coeff of Josue 17.7 H (11.5-14.5) % Plt Count 225 (130-400) K/uL MPV 11.9 H (7.4-10.4) fL Immature Gran % (Auto) 0.2 % Neut % (Auto) 72.9 % Lymph % (Auto) 14.0 % Cooke % (Auto) 10.3 % Eos % (Auto) 2.5 % Baso % (Auto) 0.1 % Neut # (Auto) 9.42 H (1.4-6.5) K/uL Lymph # (Auto) 1.81 (1.2-3.4) K/uL Cooke # (Auto) 1.33 H (0.11-0.59) K/uL Eos # (Auto) 0.32 (0-0.5) K/uL Baso # (Auto) 0.01 (0-0.2) K/uL Immature Gran # (Auto) 0.03 H (0.00-0.02) K/uL PT 10.5 (9.0-12.0) Seconds INR 1.0 (0.9-1.1) APTT 26.5 (21.0-31.0) Seconds PTT Ratio 1.0 Sodium 139 (136-145) mmol/L Potassium 4.2 (3.5-5.1) mmol/L Chloride 100 (98-107) mmol/L Carbon Dioxide 32 (21-32) mmol/L Anion Gap 7 (3-11) BUN 26 H (6-23) mg/dl Creatinine 0.97 (0.6-1.2) mg/dl Est Cr Clr Drug Dosing Not Reportable Est GFR ( Amer) 63.5 ml/min Est GFR (Non-Af Amer) 54.8 ml/min BUN/Creatinine Ratio 26.8 H (10-20) Glucose 131 H (70-99(Fasting)) mg/dl Lactate (0.4-2.0) mmol/L Calcium 9.2 (8.5-10.1) mg/dl Magnesium 2.0 (1.7-2.4) mg/dl Total Bilirubin 0.6 (0.2-1.0) mg/dl AST 14 (13-39) U/L ALT 9 (7-52) U/L Alkaline Phosphatase 70 (34-104) U/L Troponin I High Sens 29.7 H (0-14) pg/ml Total Protein 6.7 (6.0-8.3) gm/dl Albumin 4.0 (3.4-5.0) gm/dl Globulin 2.7 (2.5-4.0) gm/dl Albumin/Globulin Ratio 1.5 (0.9-2) 01/17/22 Range/Units 06:50 WBC (4.8-10.8) K/uL RBC (4.2-5.4) M/uL Hgb (12.0-16.0) g/dL Hct (37-47) % MCV (80-100) fL MCH (25-34) pg MCHC (32-36) g/dL RDW Std Deviation (36.4-46.3) fL RDW Coeff of Josue (11.5-14.5) % Plt Count (130-400) K/uL MPV (7.4-10.4) fL Immature Gran % (Auto) % Neut % (Auto) % Lymph % (Auto) % Cooke % (Auto) % Eos % (Auto) % Baso % (Auto) % Neut # (Auto) (1.4-6.5) K/uL Lymph # (Auto) (1.2-3.4) K/uL Cooke # (Auto) (0.11-0.59) K/uL Eos # (Auto) (0-0.5) K/uL Baso # (Auto) (0-0.2) K/uL Immature Gran # (Auto) (0.00-0.02) K/uL PT (9.0-12.0) Seconds INR (0.9-1.1) APTT (21.0-31.0) Seconds PTT Ratio Sodium (136-145) mmol/L Potassium (3.5-5.1) mmol/L Chloride (98-107) mmol/L Carbon Dioxide (21-32) mmol/L Anion Gap (3-11) BUN (6-23) mg/dl Creatinine (0.6-1.2) mg/dl Est Cr Clr Drug Dosing Est GFR ( Amer) ml/min Est GFR (Non-Af Amer) ml/min BUN/Creatinine Ratio (10-20) Glucose (70-99(Fasting)) mg/dl Lactate 1.3 (0.4-2.0) mmol/L Calcium (8.5-10.1) mg/dl Magnesium (1.7-2.4) mg/dl Total Bilirubin (0.2-1.0) mg/dl AST (13-39) U/L ALT (7-52) U/L Alkaline Phosphatase (34-104) U/L Troponin I High Sens (0-14) pg/ml Total Protein (6.0-8.3) gm/dl Albumin (3.4-5.0) gm/dl Globulin (2.5-4.0) gm/dl Albumin/Globulin Ratio (0.9-2) Imaging Data Radiologist's Impression: Chest X-Ray 01/17/22 06:11 XR chest 1V portable HISTORY: Shortness of breath. COMPARISON: Chest 03/16/2019. FINDINGS: No pneumothorax. No pleural effusions. There are low lung volumes with mild elevation of the right hemidiaphragm, unchanged. A few bibasilar densities consistent with subsegmental atelectasis. Mild chronic interstitial thickening is again noted. No new focal lung consolidations to suggest pneumonia. No evidence for pulmonary edema. Calcifications within the aortic knob. Advanced de generative changes within the bilateral shoulders are again noted. The heart remains mildly enlarged. IMPRESSION: No significant change compared to the prior study. No acute process. ACT 112: Negative or not required by law. Electronically signed by: Nam Vargas M.D. 01/17/2022 8:06 AM ECG Data Attestation: I personally reviewed and interpreted this ECG as follows: Additional Comments: Twelve-lead EKG: Per my interpretation shows normal sinus rhythm at a rate of 89. No ST elevation. No PVCs. Normal QTC MDM Narrative 81-year-old female presents to the ED with a chief complaint of generalized weakness and some shortness of breath. The patient symptoms started this morning. She does have a history of type 2 diabetes. She also does use nebulizers at home since having pneumonia several years ago. She is an ex- smoker many years ago. The patient states that this morning she was too weak to stand. She also had some chills last night. She noticed some swelling of her legs today as well. EMS had her oxygen saturations of 82% on room air. She was 93% when she arrived after nebulizer treatment in route. At rest on room air, the patient's oxygen saturations do drop into the mid to low 80s. The patient provides no additional complaints. Twelve-lead EKG shows a normal sinus rhythm at a rate of 89. Chest x-ray: Per my interpretation shows left lower lobe pneumonia. The radiologist did not see anything. CBC shows a slight elevation of white count. Chemistry panel shows a BUN elevation. The patient has a urinalysis that is pending. He was given IV fluids, IV cefepime was also given. She does require 2 L of oxygen to maintain saturations in the high 90s Impression & Plan Generalized weakness, Hypoxia, Left lower lobe pneumonia, Acute dehydration Discharge Plan Visit Data Chief Complaint: Shortness of Breath/Dyspnea Stated Complaint: SOB, Weakness, Unable to Ambulate ED Provider: Reginald Franco Discharge Problem: Generalized weakness, Hypoxia, Left lower lobe pneumonia, Acute dehydration Patient Disposition: Being Evaluated by Hospitalist Forms Stand Alone Forms: My [facility] Prescriptions Prescriptions: No Action gabapentin 300 mg capsule 300 mg PO TID Qty: 90 RF: 5 allopurinol [Zyloprim] 100 mg tablet 100 mg PO TID Qty: 270 RF: 1 triamcinolone acetonide 0.025 % cream 1 applic topical BID Qty: 454 RF: 3 pramipexole 0.5 mg tablet 0.5 mg PO HS Qty: 90 RF: 1 ipratropium-albuterol 0.5 mg-3 mg(2.5 mg base)/3 mL solution for nebulization 3 ml NEB QID PRN (Reason: shortness of breath) Qty: 90 RF: 5 tramadol 50 mg tablet 50 mg PO Q8H PRN (Reason: pain) Qty: 30 RF: 0 calcium carbonate 600 mg calcium (1,500 mg) tablet 600 mg PO QAM RF: 0 cefadroxil 500 mg capsule 500 mg PO BID Qty: 14 RF: 0 acetaminophen [Mapap (acetaminophen)] 325 mg Tablet 650 mg PO Q4H PRN (Reason: pain) Qty: 30 RF: 0 ascorbic acid (vitamin C) 1,000 mg Tablet 1 g PO QAM RF: 0 aspirin 325 mg Tablet 325 mg PO QAM RF: 0 docusate sodium 100 mg tablet 100 mg PO TID RF: 0 potassium chloride 10 mEq tablet extended release 20 meq PO QAM RF: 0 nifedipine 30 mg tablet extended release 30 mg PO QAM RF: 0 levothyroxine 125 mcg tablet 125 mcg PO QAM RF: 0 vitamin E 30 unit Capsule 30 unit PO QAM RF: 0 Vitamin D (with calcium) 77-400 mg-unit Tablet 400 tab PO QAM RF: 0 solifenacin [Vesicare] 10 mg tablet 10 mg PO QAM RF: 0 cranberry 450 mg Tablet 450 mg PO QAM RF: 0 Probiotic Acidophilus 1.5 mg (250 million cell) Capsule 1.5 mg PO QAM RF: 0 furosemide 80 mg tablet 80 mg PO QAM RF: 0 Referrals Referrals: Maria Esther Abdullahi DO [Primary Care Provider] -
[2022-01-17 07:08] LABS: Troponin I High Sensitivity 29.7 pg/ml (0-14)
[2022-01-17 07:10] LABS: Basophils # (auto) 0.01 K/uL (0-0.2); Basophils % (auto) 0.1 %; Eosinophils # (auto) 0.32 K/uL (0-0.5); Eosinophils % (auto) 2.5 %; Hematocrit (blood only) 46.8 % (37-47); Hemoglobin 14.7 g/dL (12.0-16.0); Immature Granulocytes # (auto) 0.03 K/uL (0.00-0.02); Immature Granulocytes % (auto) 0.2 %; Lymphocytes # (auto) 1.81 K/uL (1.2-3.4); Mean Corpuscular Hemoglobin 29.4 pg (25-34); Mean Corpuscular Hgb Conc 31.4 g/dL (32-36); Mean Corpuscular Volume 93.6 fL (80-100); Mean Platelet Volume 11.9 fL (7.4-10.4); Monocytes # (auto) 1.33 K/uL (0.11-0.59); Monocytes % (auto) 10.3 %; Neutrophils # (auto) 9.42 K/uL (1.4-6.5); Neutrophils % (auto) 72.9 %; Platelet Count 225 K/uL (130-400); RDW Coefficient of Variation 17.7 % (11.5-14.5); RDW Standard Deviation 60.8 fL (36.4-46.3); White Blood Count 12.92 K/uL (4.8-10.8)
[2022-01-17 07:23] LABS: Partial Thromboplastin Time 26.5 Seconds (21.0-31.0); Prothrombin Time 10.5 Seconds (9.0-12.0)
--- NOTE | 2022-01-17 08:07 | XRay Report ---
XR chest 1V portable HISTORY: Shortness of breath. COMPARISON: Chest 03/16/2019. FINDINGS: No pneumothorax. No pleural effusions. There are low lung volumes with mild elevation of th e right hemidiaphragm, unchanged. A few bibasilar densities consistent with subsegmental atelectasis. Mild chronic interstitial thickening is again noted. No new focal lung consolidations to suggest pne umonia. No evidence for pulmonary edema. Calcifications within the aortic knob. Advanced degenerative changes within the bilateral shoulders are again noted. The heart remains mildly enlarged. IMPRESSION: No significant change compared to the prior study. No acute process. ACT 112: Negative or not required by law. Electronically signed by: Nam Vargas M.D. 01/17/2022 8:06 AM
[2022-01-17 08:27] LABS: Appearance Urine Cloudy (Clear); Bacteria Urine Automated 2+ (Negative); Bilirubin Urine Negative (Negative); Blood Urine Negative (Negative); Color Urine Yellow; Glucose Urine UA Negative (Negative); Ketones Urine Trace (Negative); Leukocyte Esterase Urine 2+ (Negative); Nitrite Urine Negative (Negative); Protein Urine Negative (Negative); RBC Urine Automated 0-4 /hpf (0-4); Urobilinogen Urine Negative (Negative); WBC Urine Automated >30 /hpf (0-5)
--- NOTE | 2022-01-17 08:38 | History & Physical Report ---
Date of Service January 17, 2022 Assessment & Plan (1) Generalized weakness: Plan: Alf Warner is a 81y/o F who presents for concerns of 24 hours of weakness, and malaise in addition to concerns for hypoxia in the ED. Hypoxic respiratory failure: - likely secondary to pneumonia - repeated desaturations in the ED to the 80s - improved on 2L nasal cannula - wean oxygen as tolerated Pneumonia: - likely community acquired vs aspiration pneumonia vs atypical pneumonia - CXR demonstrating left lower lobe opacity - CT scan demonstrating concerns for similar left lower lobe opacification/pneumonitis - received Cefepime in ED - procal negative, CRP minimally elevated, WBC 12.9 - continue abx with transition to Unasyn - wean oxygen as tolerated Generalized weakness: - non-focal malaise/weakness in the setting of hypoxic respiratory failure/pneumonia - potential that this is worsening of her chronic weakness in the setting of acute illness - PT/OT consulted: patient typically is wheelchair bound due to low back pain Diet: Heart healthy/Carb consistent CODE STATUS: DNR/DNI DVT ppx: lovenox (2) Left lower lobe pneumonia: (3) Hypoxia: History of Present Illness Primary Care Provider: Maria Esther Abdullahi DO Alf Warner is a 81y/o F who presents for concerns of 24 hours of weakness, and malaise in addition to concerns for hypoxia in the ED. Started to have symptoms of weakness yesterday, most notably noticed it as a result of her difficulty with assisting with ambulation. Typically is wheelchair bound as a result of lower back pain and muscle/leg weakness. Typically is able to help transfer from her wheelchair to her chair or bed, but was unable to do this yesterday. Feels like she has no recent sick contacts. Does not recall needing oxygen therapy in the ambulance on transportation. Denies cough, wheeze, or shortness of breath. Does not typically require oxygen supplementation. In the ambulance, desaturated to 82% and required oxygen supplementation. In the ED had additional attempts to transition back to room air were unsuccessful, with repeated desaturations to mid-80s. Allergies Allergy/AdvReac Type Severity Reaction Status Date / Time latex Allergy Verified 01/17/22 07:05 adhesive AdvReac Unknown Bandaids - Verified 01/17/22 07:05 Unknown Home Medications Medication Instructions Recorded Confirmed Type ascorbic acid (vitamin C) 1,000 mg 1 g PO QAM 10/26/18 01/17/22 History tablet aspirin 325 mg tablet 325 mg PO QAM 10/26/18 01/17/22 History acetaminophen 325 mg tablet (Mapap 650 mg PO Q4H PRN #30 tab 03/24/19 01/17/22 Rx (acetaminophen)) docusate sodium 100 mg tablet 100 mg PO TID tab 05/03/19 01/17/22 History gabapentin 300 mg capsule 300 mg PO TID #90 cap 02/21/21 01/17/22 Rx allopurinol 100 mg tablet 100 mg PO TID #270 tab 04/08/21 01/17/22 Rx (Zyloprim) calcium carbonate 600 mg calcium 600 mg PO QAM 05/06/21 01/17/22 History (1,500 mg) tablet cefadroxil 500 mg capsule 500 mg PO BID #14 cap 06/20/21 01/17/22 Rx triamcinolone acetonide 0.025 % 1 applic TOPICAL BID #454 g 06/28/21 01/17/22 Rx topical cream pramipexole 0.5 mg tablet 0.5 mg PO HS #90 tab 08/13/21 01/17/22 Rx ipratropium 0.5 mg-albuterol 3 mg 3 ml NEB QID PRN #90 ml 11/12/21 01/17/22 Rx (2.5 mg base)/3 mL nebulization soln tramadol 50 mg tablet 50 mg PO Q8H PRN #30 tab 01/13/22 01/17/22 Rx Lactobacillus acidophilus 1.5 mg 1.5 mg PO QAM 01/17/22 01/17/22 History (250 million cell) capsule (Probiotic Acidophilus) calcium phosphate,dibasic 77 400 tab PO QAM 01/17/22 01/17/22 History mg-vitamin D3 400 unit tablet cranberry fruit 450 mg tablet 450 mg PO QAM 01/17/22 01/17/22 History (cranberry) furosemide 80 mg tablet 80 mg PO QAM 01/17/22 01/17/22 History levothyroxine 125 mcg tablet 125 mcg PO QAM 01/17/22 01/17/22 History nifedipine 30 mg tablet,extended 30 mg PO QAM 01/17/22 01/17/22 History release potassium chloride 10 mEq 20 meq PO QAM 01/17/22 01/17/22 History tablet,extended release solifenacin 10 mg tablet (Vesicare) 10 mg PO QAM 01/17/22 01/17/22 History vitamin E 30 unit capsule 30 unit PO QAM 01/17/22 01/17/22 History Past Med/Surg History Medical History Adrenal adenoma Ambulatory dysfunction Anemia Anxiety Arthritis Chronic venous insufficiency Depression Fatty liver GERD (gastroesophageal reflux disease) Gout History of stomach ulcers Hypercholesteremia Hypertension Hypothyroid Lumbar degenerative disc disease Morbid obesity Osteoarthritis PAD (peripheral artery disease) Right ankle sprain RLS (restless legs syndrome) Type 2 diabetes mellitus Urinary incontinence Surgical History History of bilateral knee replacement History of cholecystectomy History of hysterectomy 09/01/06 Hx of cataract surgery (~2013) 2013 S/P hemorrhoidectomy rubber banding 03/2015 S/P tonsillectomy Family History Father Myocardial infarction Diabetes Hypertension Mother Myocardial infarction Family history of gallbladder disease Brother Colorectal cancer Diabetes Sister Diabetes Breast cancer Family/Other Ovarian cancer Prostate cancer Social History Smoking Status: Former smoker Tobacco Type: Cigarettes Age Started Using Tobacco: 17; Age Quit Using Tobacco: 25; packs per day: 0.5; Second Hand Exposure: No; Hx Alcohol Use: No Hx Substance Use: No Preferred Language: German Communication Ability: Effective Visual Impairment: No Limitations Hearing Ability: Use of Hearing Aid Avionics Supervisor Required: No Beliefs That Will Affect Care: None marital status: Current Living Situation: Spouse and Family Current Living Situation Comment: home w/ (whom has dementia) and 2 daughters. current occupational status: retired Other Information That Helps Us Care for You: No Feels Safe at Home: Yes Safety Concerns: Feels Safe At This Time Childhood Exposure to Second-Hand Smoke: No caffeine: Yes (drinks coffee and soda) during the past year weight has: remained stable Dental Care, Regularly: No Physical Activity Frequency: Other Seatbelt Use: always Sunscreen Use: Yes Assistive Devices: Denture - Upper, Walker and Wheelchair Review of Systems Review of Systems: All systems reviewed & are unremarkable except as noted in HPI & below Physical Exam Constitutional: + obese, + disheveled, cooperative and + lethargic Eyes: PERRL, conjunctivae normal, anicteric sclerae Respiratory: normal respiratory effort; no respiratory distress and no labored breathing Auscultation: + diminished lung sounds; no crackles, no rales, no rhonchi and no wheezes Cardiovascular: Rate/Rhythm: regular rate and regular rhythm Heart Sounds: no gallop, no murmur and no cardiac rub Vessels: normal peripheral pulses Extremities: + pedal edema Gastrointestinal (Abdomen): Inspection/Auscultation: normal bowel sounds; abdomen not distended Percussion/Palpation: abdomen soft; abdomen nontender and no guarding Musculoskeletal: no cyanosis or clubbing, extremities motor strength 5/5 Skin: no rashes, warm and dry Neurologic: CN's II-XI intact bilaterally and moves all extremities Psychiatric: Orientation: alert and oriented x 3 Results & Data Results & Data ([facility]) Vital Signs (Past 12 Hours) Vital Signs Temp Pulse Pulse Resp BP BP Pulse Ox 01/17/22 07:00 74 18 114/60 97 01/17/22 06:15 93 01/17/22 06:14 93 01/17/22 05:50 36.8 C 88 16 121/57 L 96 Laboratory Results 01/17/22 01/17/22 01/17/22 Range/Units 08:59 08:43 08:43 WBC (4.8-10.8) K/uL RBC (4.2-5.4) M/uL Hgb (12.0-16.0) g/dL Hct (37-47) % MCV (80-100) fL MCH (25-34) pg MCHC (32-36) g/dL RDW Std Deviation (36.4-46.3) fL RDW Coeff of Josue (11.5-14.5) % Plt Count (130-400) K/uL MPV (7.4-10.4) fL Immature Gran % (Auto) % Neut % (Auto) % Lymph % (Auto) % [place] % (Auto) % Eos % (Auto) % Baso % (Auto) % Neut # (Auto) (1.4-6.5) K/uL Lymph # (Auto) (1.2-3.4) K/uL [place] # (Auto) (0.11-0.59) K/uL Eos # (Auto) (0-0.5) K/uL Baso # (Auto) (0-0.2) K/uL Immature Gran # (Auto) (0.00-0.02) K/uL ESR 43 H (0-30) mm/hr PT (9.0-12.0) Seconds INR (0.9-1.1) APTT (21.0-31.0) Seconds PTT Ratio Sodium (136-145) mmol/L Potassium (3.5-5.1) mmol/L Chloride (98-107) mmol/L Carbon Dioxide (21-32) mmol/L Anion Gap (3-11) BUN (6-23) mg/dl Creatinine (0.6-1.2) mg/dl Est Cr Clr Drug Dosing Est GFR ( Amer) ml/min Est GFR (Non-Af Amer) ml/min BUN/Creatinine Ratio (10-20) Glucose (70-99(Fasting)) mg/dl Lactate (0.4-2.0) mmol/L Calcium (8.5-10.1) mg/dl Magnesium (1.7-2.4) mg/dl Total Bilirubin (0.2-1.0) mg/dl AST (13-39) U/L ALT (7-52) U/L Alkaline Phosphatase (34-104) U/L Troponin I High Sens 26.6 H (0-14) pg/ml C-Reactive Protein 2.88 H (0-0.5) mg/dl Total Protein (6.0-8.3) gm/dl Albumin (3.4-5.0) gm/dl Globulin (2.5-4.0) gm/dl Albumin/Globulin Ratio (0.9-2) Procalcitonin (0-0.5) ng/ml Urine Color Urine Appearance (Clear) Urine pH (4.5-7.5) Ur Specific [place] (1.000-1.030) Urine Protein (Negative) Urine Glucose (UA) (Negative) Urine Ketones (Negative) Urine Blood (Negative) Urine Nitrite (Negative) Urine Bilirubin (Negative) Urine Urobilinogen (Negative) Ur Leukocyte Esterase (Negative) Urine WBC (Auto) (0-5) /hpf Urine RBC (Auto) (0-4) /hpf U Hyaline Cast (Auto) (0-5) /lpf U Epithel Cells (Auto) (0-5) /lpf Urine Bacteria (Auto) (Negative) SARS-CoV-2, RNA, NAAT NEGATIVE (NEGATIVE) 01/17/22 01/17/22 01/17/22 Range/Units 08:37 08:00 06:50 WBC (4.8-10.8) K/uL RBC (4.2-5.4) M/uL Hgb (12.0-16.0) g/dL Hct (37-47) % MCV (80-100) fL MCH (25-34) pg MCHC (32-36) g/dL RDW Std Deviation (36.4-46.3) fL RDW Coeff of Josue (11.5-14.5) % Plt Count (130-400) K/uL MPV (7.4-10.4) fL Immature Gran % (Auto) % Neut % (Auto) % Lymph % (Auto) % [place] % (Auto) % Eos % (Auto) % Baso % (Auto) % Neut # (Auto) (1.4-6.5) K/uL Lymph # (Auto) (1.2-3.4) K/uL [place] # (Auto) (0.11-0.59) K/uL Eos # (Auto) (0-0.5) K/uL Baso # (Auto) (0-0.2) K/uL Immature Gran # (Auto) (0.00-0.02) K/uL ESR (0-30) mm/hr PT (9.0-12.0) Seconds INR (0.9-1.1) APTT (21.0-31.0) Seconds PTT Ratio Sodium (136-145) mmol/L Potassium (3.5-5.1) mmol/L Chloride (98-107) mmol/L Carbon Dioxide (21-32) mmol/L Anion Gap (3-11) BUN (6-23) mg/dl Creatinine (0.6-1.2) mg/dl Est Cr Clr Drug Dosing Est GFR ( Amer) ml/min Est GFR (Non-Af Amer) ml/min BUN/Creatinine Ratio (10-20) Glucose (70-99(Fasting)) mg/dl Lactate 1.3 (0.4-2.0) mmol/L Calcium (8.5-10.1) mg/dl Magnesium (1.7-2.4) mg/dl Total Bilirubin (0.2-1.0) mg/dl AST (13-39) U/L ALT (7-52) U/L Alkaline Phosphatase (34-104) U/L Troponin I High Sens (0-14) pg/ml C-Reactive Protein (0-0.5) mg/dl Total Protein (6.0-8.3) gm/dl Albumin (3.4-5.0) gm/dl Globulin (2.5-4.0) gm/dl Albumin/Globulin Ratio (0.9-2) Procalcitonin 0.27 (0-0.5) ng/ml Urine Color Yellow Urine Appearance Cloudy A (Clear) Urine pH 5.0 (4.5-7.5) Ur Specific [place] 1.020 (1.000-1.030) Urine Protein Negative (Negative) Urine Glucose (UA) Negative (Negative) Urine Ketones Trace H (Negative) Urine Blood Negative (Negative) Urine Nitrite Negative (Negative) Urine Bilirubin Negative (Negative) Urine Urobilinogen Negative (Negative) Ur Leukocyte Esterase 2+ H (Negative) Urine WBC (Auto) >30 H (0-5) /hpf Urine RBC (Auto) 0-4 (0-4) /hpf U Hyaline Cast (Auto) 5-10 H (0-5) /lpf U Epithel Cells (Auto) 5-10 H (0-5) /lpf Urine Bacteria (Auto) 2+ H (Negative) SARS-CoV-2, RNA, NAAT (NEGATIVE) 01/17/22 01/17/22 01/17/22 Range/Units 06:13 06:13 06:13 WBC 12.92 H (4.8-10.8) K/uL RBC 5.00 (4.2-5.4) M/uL Hgb 14.7 (12.0-16.0) g/dL Hct 46.8 (37-47) % MCV 93.6 (80-100) fL MCH 29.4 (25-34) pg MCHC 31.4 L (32-36) g/dL RDW Std Deviation 60.8 H (36.4-46.3) fL RDW Coeff of Josue 17.7 H (11.5-14.5) % Plt Count 225 (130-400) K/uL MPV 11.9 H (7.4-10.4) fL Immature Gran % (Auto) 0.2 % Neut % (Auto) 72.9 % Lymph % (Auto) 14.0 % [place] % (Auto) 10.3 % Eos % (Auto) 2.5 % Baso % (Auto) 0.1 % Neut # (Auto) 9.42 H (1.4-6.5) K/uL Lymph # (Auto) 1.81 (1.2-3.4) K/uL [place] # (Auto) 1.33 H (0.11-0.59) K/uL Eos # (Auto) 0.32 (0-0.5) K/uL Baso # (Auto) 0.01 (0-0.2) K/uL Immature Gran # (Auto) 0.03 H (0.00-0.02) K/uL ESR (0-30) mm/hr PT 10.5 (9.0-12.0) Seconds INR 1.0 (0.9-1.1) APTT 26.5 (21.0-31.0) Seconds PTT Ratio 1.0 Sodium 139 (136-145) mmol/L Potassium 4.2 (3.5-5.1) mmol/L Chloride 100 (98-107) mmol/L Carbon Dioxide 32 (21-32) mmol/L Anion Gap 7 (3-11) BUN 26 H (6-23) mg/dl Creatinine 0.97 (0.6-1.2) mg/dl Est Cr Clr Drug Dosing Not Reportable Est GFR ( Amer) 63.5 ml/min Est GFR (Non-Af Amer) 54.8 ml/min BUN/Creatinine Ratio 26.8 H (10-20) Glucose 131 H (70-99(Fasting)) mg/dl Lactate (0.4-2.0) mmol/L Calcium 9.2 (8.5-10.1) mg/dl Magnesium 2.0 (1.7-2.4) mg/dl Total Bilirubin 0.6 (0.2-1.0) mg/dl AST 14 (13-39) U/L ALT 9 (7-52) U/L Alkaline Phosphatase 70 (34-104) U/L Troponin I High Sens 29.7 H (0-14) pg/ml C-Reactive Protein (0-0.5) mg/dl Total Protein 6.7 (6.0-8.3) gm/dl Albumin 4.0 (3.4-5.0) gm/dl Globulin 2.7 (2.5-4.0) gm/dl Albumin/Globulin Ratio 1.5 (0.9-2) Procalcitonin (0-0.5) ng/ml Urine Color Urine Appearance (Clear) Urine pH (4.5-7.5) Ur Specific [place] (1.000-1.030) Urine Protein (Negative) Urine Glucose (UA) (Negative) Urine Ketones (Negative) Urine Blood (Negative) Urine Nitrite (Negative) Urine Bilirubin (Negative) Urine Urobilinogen (Negative) Ur Leukocyte Esterase (Negative) Urine WBC (Auto) (0-5) /hpf Urine RBC (Auto) (0-4) /hpf U Hyaline Cast (Auto) (0-5) /lpf U Epithel Cells (Auto) (0-5) /lpf Urine Bacteria (Auto) (Negative) SARS-CoV-2, RNA, NAAT (NEGATIVE) Medications Administered Current Inpatient Medications Acetaminophen (Acetaminophen 325 Mg Tab) 650 mg PO Q4H PRN PRN Reason: Pain or Fever Stop: 02/16/22 11:36 Al Hydrox/Mg Hydrox/Simethicone (Aluminum/Magnesium Susp 30 Ml Udc) 15 ml PO Q4H PRN PRN Reason: Dyspepsia Stop: 02/16/22 11:36 Albuterol (Albut/Ipratrop 3mg/0.5mg Neb 3 Ml Vial) 3 ml NEB QIDR PRN; Protocol PRN Reason: shortness of breath Stop: 02/16/22 11:36 Allopurinol (Allopurinol 100 Mg Tab) 100 mg PO TID AMANDEEP Stop: 02/16/22 11:36 Last Admin: 01/17/22 14:37 Dose: 100 mg Documented by: Enoxaparin Sodium (Enoxaparin Inj 40 Mg/0.4 Ml Syr) [facility] [place]: 02/17/22 08:59 Furosemide (Furosemide 80 Mg Tab) 80 [facility] [place] Stop: 02/16/22 11:36 Last Admin: 01/17/22 12:49 Dose: 80 mg Documented by: Ampicillin Sodium/Sulbactam Sodium 3,000 mg/ Sodium Chloride 108 mls @ 200 mls/hr IV Q6H [facility]; Protocol Stop: 01/24/22 15:59 Last Infusion: 01/17/22 18:11 Dose: Infused Documented by: Levothyroxine Sodium (Levothyroxine Sodium 125 Mcg Tablet) [facility] Stop: 02/16/22 11:36 Last Admin: 01/17/22 12:49 Dose: 125 mcg Documented by: Magnesium Hydroxide (Magnesium Hydroxide Susp 30 Ml Udc) 30 ml PO Q12H PRN PRN Reason: Constipation Stop: 02/16/22 11:36 Miconazole Nitrate (Miconazole Nitrate Powder 43 Gm) 1 appln EXT PRN PRN PRN Reason: Affected Skin Folds Stop: 02/16/22 18:08 Morphine Sulfate (Morphine Sulfate 2 Mg/Ml [place]) 2 mg IV Q30M PRN PRN Reason: Chest Pain Stop: 01/31/22 11:36 Nifedipine (Nifedipine 10 Mg Cap) 30 mg PO [facility] Stop: 02/16/22 11:36 Last Admin: 01/17/22 12:49 Dose: 30 mg Documented by: Nitroglycerin (Nitroglycerin Sl 0.4 Mg/Tab Tab) 0.4 mg SL UD PRN PRN Reason: Chest Pain Stop: 02/16/22 11:36 Ondansetron HCl (Ondansetron Inj 2 Mg/Ml 2 Ml Vial) 4 mg IV Q6H PRN PRN Reason: Nausea Stop: 02/16/22 11:36 Polyethylene Glycol (Polyethylene (Miralax) 17 Gm Pack) 17 gm PO DAILY PRN PRN Reason: Constipation Stop: 02/16/22 11:36 Pramipexole Dihydrochloride (Pramipexole Dihydrochlo 0.5 Mg Tab) 0.5 mg PO [facility] Stop: 02/16/22 20:59 Tramadol HCl (Tramadol Hcl 50 Mg Tablet) 50 mg PO Q8H PRN PRN Reason: pain Stop: 02/16/22 11:36 Supervising Physician Co-Signing Physician Notes I personally examined the patient and verified all schmid points of history and exam, discussed case, and agree with decision making with Dr Clifford some sob. mostly weakness. started yesterday. really wants to be able to get back home to help w w dementia vitals noted nad heent nc at mmm lungs L coarse rhonchi no rales no wheeze good effort no accessory muscles. b/l TKA type changes knees mildly tender but no erythema no effusions. poor dentition weakness - likely global weakness in response to physiologic stress from pneumonia. PT/OT eval and treat. lives at a fairly low functional baseline - would just want her to be able to perform at a level she needs to be independent CAP vs aspiration - unasyn. speech eval. supportive care DVT proph - lovenox Resident Activity Tracking Resident Involvement: Resident Care Provided Care Provided: Adult Hospital Medicine
[2022-01-17 09:36] LABS: Troponin I High Sensitivity 26.6 pg/ml (0-14)
[2022-01-17 09:37] LABS: C Reactive Protein 2.88 mg/dl (0-0.5)
[2022-01-17] MEDS ORDERED: MAGNESIUM HYDROXIDE SUSP 30 ML UDC PO PRN (11:37)
[2022-01-17] MEDS ORDERED: traMADol HCL 50 MG TABLET PO PRN (11:37)
[2022-01-17] MEDS ORDERED: ALUMINUM/MAGNESIUM SUSP 30 ML UDC PO PRN (11:37)
[2022-01-17] MEDS ORDERED: POLYETHYLENE (MIRALAX) 17 GM PACK PO PRN (11:37)
[2022-01-17] MEDS ORDERED: NITROGLYCERIN SL 0.4 MG/TAB TAB SL PRN (11:37)
[2022-01-17] MEDS ORDERED: ALBUT/IPRATROP 3MG/0.5MG NEB 3 ML VIAL NEB PRN (11:37)
[2022-01-17] MEDS ORDERED: ONDANSETRON INJ 2 MG/ML 2 ML VIAL IV PRN (11:37)
[2022-01-17] MEDS ORDERED: ACETAMINOPHEN 325 MG TAB PO PRN (11:37)
[2022-01-17] MEDS ORDERED: MoRPHine SULFATE 2 MG/ML CARP IV PRN (11:37)
[2022-01-17] MEDS: LEVOTHYROXINE SODIUM 125 MCG TABLET PO SCH (12:49)
[2022-01-17] MEDS: FUROSEMIDE 80 MG TAB PO SCH (12:49)
[2022-01-17] MEDS: allopurinoL 100 MG TAB PO SCH ×3 (12:49→20:32)
[2022-01-17] MEDS: NIFEdipine 10 MG CAP PO SCH (12:49)
--- NOTE | 2022-01-17 13:47 | Electrocardiogram Report ---
Test Reason : Blood Pressure : / mmHG Vent. Rate : 089 BPM Atrial Rate : 089 BPM P-R Int : 202 ms QRS Dur : 082 ms QT Int : 392 ms P-R-T Axes : -29 099 -03 degrees QTc Int : 476 ms Normal sinus rhythm Rightward axis Possible Inferior infarct (cited on or before 16-MAR-2019) Abnormal ECG When compared with ECG of 16-MAR-2019 02:04, Premature ventricular complexes are no longer Present Confirmed by Jef Dunaway ([id number]) on 01/17/2022 1:47:25 PM Referred By: Confirmed By:Jef Dunaway
--- NOTE | 2022-01-17 16:01 | CT Scan Report ---
CT SCAN OF THE CHEST WITHOUT IV CONTRAST CLINICAL HISTORY: Dyspnea. Weakness. COMPARISON STUDY: Chest x-ray dated 01/17/2022. Chest CT scan dated 03/13/2020 and 03/16/2019. TECHNIQUE: CT scan of the thorax was performed from the thoracic inlet to the upper abdomen. Images are reviewed in the axial, sagittal, and coronal planes. IV contrast was not administered for this ex amination as per the referring clinician. A dose lowering technique was utilized adhering to the brandon Barlow. The examination is degraded by streak artifact from the arms which could not be maximo vated above the chest. CT DOSE: 813.41 mGy.cm FINDINGS: Thyroid: Imaged portions of the thyroid gland are normal in size and attenuation. Thoracic aorta: There is atherosclerotic calcification of the thoracic aorta, with is normal in calib er and demonstrates standard 3-vessel arch anatomy. Heart: The heart is mildly enlarged and without pericardial effusion. The main pulmonary arteries errol ear dilated suggesting pulmonary artery hypertension. Lungs and pleural spaces: Dependent consolidation is present at both lung bases. No pleural effusion is identified. There are innumerable (greater than 20) 1-2 mm pulmonary nodules scattered throughout both lungs. This is similar to the 2019 examination. Minimal secretions are noted in the trachea. Mediastinum: There is no mediastinal lymphadenopathy. Benita: Not well assessed without IV contrast. Axillae: There is no axillary lymphadenopathy. Upper abdomen: There is a small hiatal hernia. A calcification within the left lobe of the liver is u nchanged. Skeletal structures: The skeletal structures are osteopenic. Degenerative change and hyperkyphosis is noted in the thoracic spine with evidence of DISH. Advanced arthritic change and deformity is seen i n the shoulders. No lytic or blastic bony lesions are seen. IMPRESSION: 1. Dependent consolidation is present at both lung bases. This could represent atelectasis and/or pne umonia/aspiration pneumonitis. Clinical correlation will be required. 2. No pleural effusion is seen. 3. Mild cardiomegaly. 4. There are innumerable (greater than 20) 1-2 mm pulmonary nodules scattered throughout both lungs. These are pathologically indeterminant and similar to the 03/13/2020 examination. These were also like ly present in 2019 but were difficult to assess due to motion artifact. Any follow-up should be based on clinical grounds. ACT 112: Negative or not required by law. Electronically signed by: Sd Abdalla M.D. 01/17/2022 3:59 PM
[2022-01-17] MEDS: AMPICILLIN/SULBACTAM SOD 3,000 MG in 0.9 % SODIUM CHLORIDE 100 ML IV SCH ×2 (17:30→21:05)
[2022-01-17] MEDS ORDERED: MICONAZOLE NITRATE POWDER 43 GM EXT PRN (18:09)
--- NOTE | 2022-01-17 18:15 | Billing Data ---
Date of Service January 17, 2022 Coding Level of Care Code INT OBSERVATION CARE 70M LVL 3
[2022-01-17] MEDS ORDERED: PRAMIPEXOLE DIHYDROCHLO 0.5 MG TAB PO SCH (21:00)
[2022-01-18] MEDS: AMPICILLIN/SULBACTAM SOD 3,000 MG in 0.9 % SODIUM CHLORIDE 100 ML IV SCH ×2 (03:04→10:03)
[2022-01-18] MEDS: LEVOTHYROXINE SODIUM 125 MCG TABLET PO SCH (03:05)
[2022-01-18] MEDS: NIFEdipine 10 MG CAP PO SCH (08:02)
[2022-01-18] MEDS: FUROSEMIDE 80 MG TAB PO SCH (08:02)
[2022-01-18] MEDS: allopurinoL 100 MG TAB PO SCH ×2 (08:02→13:43)
[2022-01-18] MEDS ORDERED: KETOROLAC TROMETHAMINE 15 MG/ML VIAL IV ONE (08:54)
[2022-01-18] MEDS ORDERED: ENOXAPARIN INJ 40 MG/0.4 ML SYR SQ SCH (09:00)
[2022-01-18 09:29] LABS: Basophils # (auto) 0.02 K/uL (0-0.2); Basophils % (auto) 0.2 %; Eosinophils # (auto) 0.37 K/uL (0-0.5); Eosinophils % (auto) 4.6 %; Hematocrit (blood only) 44.7 % (37-47); Hemoglobin 13.9 g/dL (12.0-16.0); Immature Granulocytes # (auto) 0.01 K/uL (0.00-0.02); Immature Granulocytes % (auto) 0.1 %; Lymphocytes # (auto) 1.45 K/uL (1.2-3.4); Lymphocytes % (auto) 17.9 %; Mean Corpuscular Hemoglobin 29.1 pg (25-34); Mean Corpuscular Hgb Conc 31.1 g/dL (32-36); Mean Corpuscular Volume 93.7 fL (80-100); Mean Platelet Volume 11.3 fL (7.4-10.4); Monocytes # (auto) 0.61 K/uL (0.11-0.59); Monocytes % (auto) 7.5 %; Neutrophils # (auto) 5.64 K/uL (1.4-6.5); Neutrophils % (auto) 69.7 %; Platelet Count 227 K/uL (130-400); RDW Coefficient of Variation 17.7 % (11.5-14.5); RDW Standard Deviation 60.9 fL (36.4-46.3); Red Blood Count 4.77 M/uL (4.2-5.4)
[2022-01-18 09:38] LABS: Estimated Average Glucose 131 mg/dl; Hemoglobin A1C 6.2 % (4.5-5.6)
[2022-01-18] MEDS ORDERED: POTASSIUM CHLORIDE CRTAB 20 MEQ TABCR PO SCH (09:45)
--- NOTE | 2022-01-18 10:05 | Ultrasound Report ---
US pelvic complete HISTORY: 81 years-old Female pelvic pain acute pelvic pain with urinary tract infection COMPARISON: None TECHNIQUE: Multiple real-time sonographic images of the deep pelvic structures were obtained transabd ominally assessing grayscale appearance FINDINGS: The uterus and ovaries are not diagnostically visualized and may be surgically absent. No adnexal mas s lesions or fluid collections. Partially decompressed urinary bladder. Study is limited secondary to patient body habitus. The transvaginal portion of the study was declined by the patient. IMPRESSION: Limited exam as above. The uterus and ovaries are not diagnostically visualized. Correlat e with surgical history. ACT 112: Negative or not required by law. The above report was generated using voice recognition software. It may contain grammatical, syntax o r spelling errors. Electronically signed by: Getachew Floyd M.D. 01/18/2022 10:04 AM
[2022-01-18 10:08] LABS: BUN Creatinine Ratio 24.1 (10-20); C Reactive Protein 5.39 mg/dl (0-0.5); Calcium 8.3 mg/dl (8.5-10.1); Chol HDL Ratio 3.8 (0-5); Creatinine Clr Calc Pharmacy 63.9 ml/min; Est GFR (African American) 76.6 ml/min; Est GFR (Non-African American) 66.1 ml/min; Potassium 3.2 mmol/L (3.5-5.1)
--- NOTE | 2022-01-18 13:44 | Discharge Summary ---
Date of Service January 18, 2022 Admission HPI Per Admitting Provider Alf Warner is a 81y/o F who presents for concerns of 24 hours of weakness, and malaise in addition to concerns for hypoxia in the ED. Started to have symptoms of weakness yesterday, most notably noticed it as a result of her difficulty with assisting with ambulation. Typically is wheelchair bound as a result of lower back pain and muscle/leg weakness. Typically is able to help transfer from her wheelchair to her chair or bed, but was unable to do this yesterday. Feels like she has no recent sick contacts. Does not recall needing oxygen therapy in the ambulance on transportation. Denies cough, wheeze, or shortness of breath. Does not typically require oxygen supplementation. In the ambulance, desaturated to 82% and required oxygen supplementation. In the ED had additional attempts to transition back to room air were unsuccessful, with repeated desaturations to mid-80s. Admission Exam Per Admitting Provider Constitutional: + obese, + disheveled, cooperative and + lethargic Eyes: PERRL, conjunctivae normal, anicteric sclerae Respiratory: normal respiratory effort; no respiratory distress and no labored breathing Auscultation: + diminished lung sounds; no crackles, no rales, no rhonchi and no wheezes Cardiovascular: Rate/Rhythm: regular rate and regular rhythm Heart Sounds: no gallop, no murmur and no cardiac rub Vessels: normal peripheral pulses Extremities: + pedal edema Gastrointestinal (Abdomen): Inspection/Auscultation: normal bowel sounds; abdomen not distended Percussion/Palpation: abdomen soft; abdomen nontender and no guarding Musculoskeletal: no cyanosis or clubbing, extremities motor strength 5/5 Skin: no rashes, warm and dry Neurologic: CN's II-XI intact bilaterally and moves all extremities Psychiatric: Orientation: alert and oriented x 3 Principal Diagnosis Pneumonia Discharge Exam Constitutional WD/WN, vitals as above cooperative and comfortable Eyes + anicteric sclerae ENMT external ear and nose normal, oropharynx normal Neck normal visual inspection and trachea midline Respiratory normal respiratory effort, lungs clear to auscultation no respiratory distress, no labored breathing and no cough Cardiovascular RRR, no murmur, no edema Heart Sounds: normal S1 and normal S2 Gastrointestinal (Abdomen) normal bowel sounds, soft, nontender, no hepatosplenomegaly Musculoskeletal Head/Neck/Chest: normocephalic and head atraumatic Skin no rashes, warm and dry Psychiatric A+Ox3, euthymic affect Discharge Data Allergies Allergy/AdvReac Type Severity Reaction Status Date / Time latex Allergy Verified 01/17/22 07:05 adhesive AdvReac Unknown Bandaids - Verified 01/17/22 07:05 Unknown Consultations 01/17/22 08:02 ED Decision to Admit Stat Ordered Studies 01/17/22 11:35 CT chest diagnostic wo con Routine 01/18/22 08:57 US pelvic complete Routine Hospital Course (1) Left lower lobe pneumonia: (2) Generalized weakness: Alf Warner is a 81y/o F who was admitted for evaluation of weakness and hypoxia. Hypoxic respiratory failure: - patient repeated desaturations in the ED to the 80s - etiology was a community acquired PNA - Oxygenation improved by the time of discharge to > 90 on room air with exertion Pneumonia: - likely community acquired vs aspiration pneumonia vs atypical pneumonia - CXR demonstrating left lower lobe opacity. - CT scan demonstrating concerns for similar left lower lobe opacification/pneu monitis - WBC was mildly elevated to 12.9 on arrival, but normalized by the time of discharge. Blood cultures showed no growth to date. - She was treated with IV Unasyn and discharged with 5 day course of Augmentin (7 day total course) Pelvic Pain - patient complained of intensity pelvic pain on day of discharge - she did have a total hysterectomy in the past - abdominal/pelvic US was performed and no abnormalities were noted (3) Hypoxia: Total Time Total Time Spent Total Time Spent (In Minutes): <30 Discharge Plan Discharge Items Patient Disposition: Home - Home Health Services Reason For Visit: WEAKNESS,PNEUMONIA Discharge Diagnosis: Pneumonia Activity: Resume your previous activity Non-emergency contact: Primary Care Provider Call non-emergency contact if: your symptoms worsen Follow-up/Referrals: Maria Esther Abdullahi DO [Primary Care Provider] - Diet: Carb Consistent or DM2 and Heart Healthy Addtl Attending Provider Instructions: You were hospitalized at [facility] for a low oxygen reading. On arrival, you were found to have a pneumonia (infection of the lung). You were treated with antibiotics and clinically improved. Please continue to take Augmentin 875mg twice daily for 5 days. A script was sent to your pharmacy. You experienced pelvic pain on the day of your discharge. An ultrasound was ordered and it showed no abnormalities Please follow up with your primary care doctor within 1 week. Pending Studies at Discharge: No Stand-Alone Forms: My [facility], Smoking Cessation Medications and DC Order Prescriptions: New amoxicillin-pot clavulanate 875-125 mg tablet 1 tab PO BID 5 Days Qty: 10 RF: 0 Continued gabapentin 300 mg capsule 300 mg PO TID Qty: 90 RF: 5 allopurinol [Zyloprim] 100 mg tablet 100 mg PO TID Qty: 270 RF: 1 triamcinolone acetonide 0.025 % cream 1 applic topical BID Qty: 454 RF: 3 pramipexole 0.5 mg tablet 0.5 mg PO HS Qty: 90 RF: 1 ipratropium-albuterol 0.5 mg-3 mg(2.5 mg base)/3 mL solution for nebulization 3 ml NEB QID PRN (Reason: shortness of breath) Qty: 90 RF: 5 tramadol 50 mg tablet 50 mg PO Q8H PRN (Reason: pain) Qty: 30 RF: 0 calcium carbonate 600 mg calcium (1,500 mg) tablet 600 mg PO QAM RF: 0 cefadroxil 500 mg capsule 500 mg PO BID Qty: 14 RF: 0 acetaminophen [Mapap (acetaminophen)] 325 mg Tablet 650 mg PO Q4H PRN (Reason: pain) Qty: 30 RF: 0 ascorbic acid (vitamin C) 1,000 mg Tablet 1 g PO QAM RF: 0 aspirin 325 mg Tablet 325 mg PO QAM RF: 0 docusate sodium 100 mg tablet 100 mg PO TID RF: 0 potassium chloride 10 mEq tablet extended release 20 meq PO QAM RF: 0 nifedipine 30 mg tablet extended release 30 mg PO QAM RF: 0 levothyroxine 125 mcg tablet 125 mcg PO QAM RF: 0 vitamin E 30 unit Capsule 30 unit PO QAM RF: 0 calcium phos,dibas-vitamin D3 77-400 mg-unit Tablet 400 tab PO QAM RF: 0 solifenacin [Vesicare] 10 mg tablet 10 mg PO QAM RF: 0 cranberry 450 mg Tablet 450 mg PO QAM RF: 0 Probiotic Acidophilus 1.5 mg (250 million cell) Capsule 1.5 mg PO QAM RF: 0 furosemide 80 mg tablet 80 mg PO QAM RF: 0 Discharge Orders: Discharge Order (Routine); Ordered 01/18/22 Ordered By: Nina Marin Admission Data Admit Date/Time: 01/17/22 08:36 Attending Provider: Dony Nicole Admit Provider: Dony Nicole Primary Care Provider: Maria Esther Abdullahi Other Providers: Francisco Javier Rios Other Interventions: Discharge Summary Assessment (RN) Last Done: 01/18/22 15:08 Supervising Physician Co-Signing Physician Notes I personally examined the patient and verified all schmid points of history and exam, discussed case, and agree with decision making with Dr Marin feeling better feeling up to going home no new complaints otherwise vitals noted nad heent nc at mmm breathing unlabored no conversational dyspnea no accessory muscles. b/l TKA type changes knees mildly tender but no erythema no effusions. poor dentition weakness - able to go home w outpt PT CAP - speech eval - really no aspiration risk. stable/safe for home on PO abx DVT proph - lovenox utilized while here Resident Activity Tracking Resident Involvement: Resident Care Provided Care Provided: Adult Hospital Medicine
== END 2022-01-18 16:56 | disposition home health service (06) ==
LOC: ED 05:42 → EDINP 05:42 → 2N 11:50

== ENCOUNTER 2022-05-01 11:02 | Observation (INO) ==
--- NOTE | 2022-05-01 12:36 | XRay Report ---
XR chest 1V portable CLINICAL HISTORY: weakness. Evaluate cardiopulmonary status COMPARISON STUDY: No previous studies for comparison. TECHNIQUE: 1 view of the chest FINDINGS: Single frontal view of the chest demonstrates the heart size to be mildly enlarged. There is asymmetr ic elevation of the right hemidiaphragm with crowding the bronchovascular markings at the right lung base. The lungs are clear of alveolar opacities. There is no evidence for pleural effusion. There is no evidence for vascular congestion. There is no acute osseous pathology. IMPRESSION: 1. No acute cardiopulmonary disease. 2. Cardiomegaly with asymmetric elevation of the right hemidiaphragm. ACT 112: Negative or not required by law. Electronically signed by: Jaime Verduzco M.D. 05/01/2022 12:32 PM
[2022-05-01 12:44] LABS: Influenza A virus by PCR Negative (Neg); Influenza B virus by PCR Negative (Neg); RSV by PCR Negative (Neg)
[2022-05-01 12:53] LABS: SARS CoV2 RNA(COVID-19) InHosp POSITIVE (Negative)
--- NOTE | 2022-05-01 13:09 | Emergency Department Note ---
Impression & Plan COVID-19, Bilateral flank pain, Generalized weakness ED Provider Note INFORMANT: Patient ED PROVIDER(S): Jerry Feliciano MD CHIEF COMPLAINT: Illness PLAN: Disposition: Admitted Condition: Good Outpatient prescription management: none Referral: None MEDICAL DECISION MAKING: Patient presented to the emergency department because of illness. She had a COVID exposure. COVID testing was performed and was positive here. Chest x-ray did not reveal any acute findings. CT scan of the abdomen pelvis did not reveal any acute findings and this was done because of her flank pain. Her urinalysis was somewhat questionable. Given the flank pain and urinalysis that was done by catheter specimen she was given IV Rocephin. Patient's troponin was borderline elevated. She had a normal sinus rhythm on ECG but nonspecific ST-T wave changes. There is anterior T wave inversions. Further management in the hospital will be necessary. Consultation was made with internal medicine. Patient was evaluated in the ER for further management. Triage Nursing notes reviewed and agree them. Vital Signs: reviewed and remarkable for no significant abnormalities Differential: COVID-19, SBI, dehydration, metabolic abnormality, hypo/hyperglycemia, electrolyte disturbance, anemia, hypoxia, cardiac sources, intracerebral event, toxicologic, neurologic, as well as other pathologies. Diagnostics interpreted by me: ECG: Twelve-lead ECG reveals a normal sinus rhythm at 90 bpm. Right axis devia tion. ST and T wave changes noted anteriorly with T wave inversions inferiorly. Cardiac Monitoring: Cardiac monitoring ordered by me: The patient was placed on continuous cardiac monitoring and observed. It revealed a normal sinus rhythm at 87 beats per minute without ectopy or evidence of dysrhythmia. Imaging studies: Chest x-ray. Findings: A chest x-ray was performed and revealed no pneumothorax, effusion, infiltrate, pulmonary edema, free air under the diaphragm, or wide mediastinum. Impression: No acute disease. CT scan as noted below. HPI: The patient is a 82 year old female who presents to the Emergency Room with complaints of illness. This started 2 to 3 days ago and is worse. The patient also notes the following associated symptoms, significant weakness that is generalized, feeling feverish and chilled, some shortness of breath, vomiting and diarrhea. Patient also notes bilateral flank pain that is more anterior. The patient has found no relieving factors. Current pain is rated as 6/10. The patient notes that her daughter tested positive for COVID recently. Pt denies LOC, headache, diaphoresis, visual changes, neck pain, chest pain, back pain, melena, hematochezia, urinary symptoms, numbness, lymphadenopathy, rash, or other complaints. ROS: See above HPI for pertinent positives & negatives. A total of 10 systems reviewed and were otherwise negative. PAST MEDICAL HISTORY:See Below , peripheral artery disease, diabetes, hypertension PAST SURGICAL HISTORY:See Below, FAMILY HISTORY:See Below SOCIAL HISTORY:See Below, non-smoker HOME MEDICATIONS:See Below ALLERGIES:See Below VITALS:See Below PHYSICAL EXAMINATION: GENERAL: Awake, alert, mildly ill appearing, in no distress HENT: Normocephalic, atraumatic. Oropharynx unremarkable. EYES: Normal conjunctiva. Sclera non-icteric. NECK: Inspection normal. Non-tender. Supple. No nuchal rigidity. FROM. No masses. RESPIRATORY: Diminished breath sounds. No wheezes. No rales. Mildly increased respiratory effort. CARDIAC: Normal rate. Normal rhythm. No murmurs. No rubs. Extremities warm and well perfused. Pulses equal. No JVD. GI: Soft, non-distended. Bilateral flank tenderness to palpation. No rebound or guarding. No masses. RECTAL: Deferred. MUSCULOSKELETAL: Atraumatic. Chest examination reveals no tenderness. The back is symmetrical on inspection without obvious abnormality. There is no CVA tenderness to palpation. No joint edema. LOWER EXTREMITIES: Calves are equal size bilaterally and non-tender. 1+ edema. No discoloration. NEURO: Normal sensorium. Generalized weakness but no focal no sensory or motor deficits noted. SKIN: No rash or jaundice noted. Jerry Feliciano MD Past Med/Surg History Medical History Adrenal adenoma Ambulatory dysfunction Anemia Anxiety Arthritis Chronic venous insufficiency Depression Fatty liver GERD (gastroesophageal reflux disease) Gout History of stomach ulcers Hypercholesteremia Hypertension Hypothyroid Lumbar degenerative disc disease Morbid obesity Nocturnal hypoxemia Osteoarthritis PAD (peripheral artery disease) RLS (restless legs syndrome) Type 2 diabetes mellitus Urinary incontinence Surgical History History of bilateral knee replacement History of cholecystectomy History of hysterectomy 09/01/06 Hx of cataract surgery (~2013) 2013 S/P hemorrhoidectomy rubber banding 03/2015 S/P tonsillectomy Family History Father Myocardial infarction Diabetes Hypertension Mother Myocardial infarction Family history of gallbladder disease Brother Colorectal cancer Diabetes Sister Diabetes Breast cancer Family/Other Ovarian cancer Prostate cancer Social History Smoking Status: Former smoker Tobacco Type: Cigarettes Age Started Using Tobacco: 17; Age Quit Using Tobacco: 25; packs per day: 0.5; Second Hand Exposure: No; Hx Alcohol Use: No Hx Substance Use: No Preferred Language: Czech Communication Ability: Effective Visual Impairment: No Limitations Hearing Ability: Use of Hearing Aid Freight Adjuster Required: No Beliefs That Will Affect Care: None marital status: Current Living Situation: Spouse and Family Current Living Situation Comment: home w/ (whom has dementia) and 2 daughters. current occupational status: retired Feels Safe at Home: Yes Childhood Exposure to Second-Hand Smoke: No caffeine: Yes (drinks coffee and soda) during the past year weight has: remained stable Dental Care, Regularly: No Physical Activity Frequency: Other Seatbelt Use: always Sunscreen Use: Yes Assistive Devices: Hospital Bed, Nebulizer, Scooter/Electric Scooter, Walker and Wheelchair Allergies Allergies Allergy/AdvReac Type Severity Reaction Status Date / Time adhesive Allergy Intermediate SKIN Verified 05/01/22 15:35 IRRITATION latex AdvReac Intermediate WATER Verified 05/01/22 15:35 FILLED BLISTERS Home Meds Home Medications Medication Instructions Recorded Confirmed ascorbic acid (vitamin C) 1,000 mg 1 g PO QAM 10/26/18 05/01/22 tablet aspirin 325 mg tablet 325 mg PO QAM 10/26/18 05/01/22 docusate sodium 100 mg tablet 100 mg PO TID 05/03/19 05/01/22 calcium carbonate 600 mg calcium 600 mg PO QAM 05/06/21 05/01/22 (1,500 mg) tablet Lactobacillus acidophilus 1.5 mg 1.5 mg PO QAM 01/17/22 05/01/22 (250 million cell) capsule (Probiotic Acidophilus) calcium phosphate,dibasic 77 400 tab PO QAM 01/17/22 05/01/22 mg-vitamin D3 400 unit tablet levothyroxine 125 mcg tablet 125 mcg PO QAM 01/17/22 05/01/22 solifenacin 10 mg tablet (Vesicare) 10 mg PO QAM 01/17/22 05/01/22 vitamin E 30 unit capsule 30 unit PO QAM 01/17/22 05/01/22 Previous Rx's Medication Instructions Recorded acetaminophen 325 mg tablet (Mapap 650 mg PO Q4H PRN pain #30 tabs 03/24/19 (acetaminophen)) allopurinol 100 mg tablet 100 mg PO TID #270 tabs 04/08/21 (Zyloprim) ipratropium 0.5 mg-albuterol 3 mg 3 ml NEB QID PRN shortness of 11/12/21 (2.5 mg base)/3 mL nebulization breath #90 mL soln triamcinolone acetonide 0.025 % 1 applic topical BID #454 grams 01/29/22 topical cream diclofenac sodium 1 % topical gel 2 g topical QID #100 grams 01/30/22 (Voltaren Arthritis Pain) pramipexole 0.5 mg tablet 0.5 mg PO HS #90 tabs 02/12/22 Oxygen Home #1 ea 02/19/22 furosemide 80 mg tablet 80 mg PO QAM #90 tabs 03/04/22 gabapentin 300 mg capsule 300 mg PO TID #90 caps 03/10/22 potassium chloride 10 mEq 20 meq PO QAM #180 tabs 04/07/22 tablet,extended release tramadol 50 mg tablet 50 mg PO Q8H PRN pain #30 tabs 04/07/22 nifedipine 30 mg tablet,extended 30 mg PO QAM #30 tabs 04/17/22 release Mattress (Air or other) #1 ea 04/24/22 Results & Data (ED) Vital Signs Vital Signs - 24 hr 05/01/22 11:16 05/01/22 14:07 05/01/22 14:07 Temperature 36.4 C L Temperature Source Temporal Artery Scan Pulse Rate 96 H 91 H Pulse Rate [Apical] 91 H Pulse Rhythm Regular Pulse Rhythm [Apical] Regular Pulse Strength Normal Pulse Strength [Apical] Normal Respiratory Rate 18 15 17 Respiratory Effort / Characteristics Non-Labored Respiratory Depth Normal Respiratory Pattern Regular Blood Pressure 117/69 Blood Pressure [Right Arm] 122/81 Blood Pressure Mean 85 Blood Pressure Mean [Right Arm] 94 Blood Pressure Position Sitting Blood Pressure Position [Right Arm] Lying Pulse Oximetry 94 100 100 Oxygen Delivery Method Nasal Cannula Nasal Cannula Room Air Oxygen Flow Rate 2 2 Sepsis Recent Fever Within 48 Hours No Sepsis New/Unexplained Change in Mental Status No Sepsis Action Taken by Nursing No Action Required Laboratory Data Result diagrams: 05/01/22 13:48 05/01/22 13:48 Lab Results 05/01/22 05/01/22 05/01/22 Range/Units 11:25 13:05 13:48 WBC 3.60 L (4.8-10.8) K/ul RBC 5.33 H (3.93-5.22) M/uL Hgb 15.5 (12.0-16.0) g/dl Hct 48.1 H (34.1-44.9) % MCV 90.2 (80.0-100.0) fL MCH 29.1 (25.0-34.0) pg MCHC 32.2 (32.0-36.0) g/dL RDW Std Deviation 55.3 H (36.4-46.3) fL RDW Coeff of Josue 16.6 H (11.5-14.5) % Plt Count 158 (130-400) K/uL MPV 11.5 (9.4-12.3) fL Immature Gran % (Auto) 0.3 % Neut % (Auto) 58.0 % Lymph % (Auto) 28.3 % [place] % (Auto) 12.5 % Eos % (Auto) 0.6 % Baso % (Auto) 0.3 % Neut # (Auto) 2.09 (1.4-6.5) K/uL Lymph # (Auto) 1.02 L (1.2-3.4) K/uL Winona # (Auto) 0.45 (0.24-0.82) K/uL Eos # (Auto) 0.02 (0-0.50) K/uL Baso # (Auto) 0.01 (0-0.2) K/uL Immature Gran # (Auto) 0.01 (0.00-0.02) K/uL Sodium (136-145) mmol/L Potassium (3.5-5.1) mmol/L Chloride (98-107) mmol/L Carbon Dioxide (21-32) mmol/L Anion Gap (3-11) BUN (6-23) mg/dl Creatinine (0.6-1.2) mg/dl Est Cr Clr Drug Dosing ml/min Est GFR ( Amer) ml/min Est GFR (Non-Af Amer) ml/min BUN/Creatinine Ratio (10-20) Glucose (70-99(Fasting)) mg/dl Calcium (8.5-10.1) mg/dl Magnesium (1.7-2.4) mg/dl Total Bilirubin (0.2-1.0) mg/dl AST (13-39) U/L ALT (7-52) U/L Alkaline Phosphatase (34-104) U/L Troponin I High Sens (0-14) pg/ml C-Reactive Protein (0-0.5) mg/dl Total Protein (6.0-8.3) gm/dl Albumin (3.4-5.0) gm/dl Globulin (2.5-4.0) gm/dl Albumin/Globulin Ratio (0.9-2) TSH (0.300-4.500) uIu/ml Urine Color Yellow Urine Appearance Clear (Clear) Urine pH 5.5 (4.5-7.5) Ur Specific Hurricane 1.012 (1.000-1.030) Urine Protein Negative (Negative) Urine Glucose (UA) Negative (Negative) Urine Ketones Trace H (Negative) Urine Blood Negative (Negative) Urine Nitrite Negative (Negative) Urine Bilirubin Negative (Negative) Urine Urobilinogen Negative (Negative) Ur Leukocyte Esterase Trace H (Negative) Urine WBC (Auto) 5-10 H (0-5) /hpf Urine RBC (Auto) 0-4 (0-4) /hpf U Hyaline Cast (Auto) 1-5 (0-5) /lpf U Epithel Cells (Auto) >30 H (0-5) /lpf Urine Bacteria (Auto) 2+ H (Negative) SARS-CoV-2 (PCR) POSITIVE A* (Negative) Influenza Type A (PCR) Negative (Neg) Influenza Type B (PCR) Negative (Neg) RSV (RT-PCR) Negative (Neg) 05/01/22 05/01/22 05/01/22 Range/Units 13:48 13:48 13:48 WBC (4.8-10.8) K/ul RBC (3.93-5.22) M/uL Hgb (12.0-16.0) g/dl Hct (34.1-44.9) % MCV (80.0-100.0) fL MCH (25.0-34.0) pg MCHC (32.0-36.0) g/dL RDW Std Deviation (36.4-46.3) fL RDW Coeff of Josue (11.5-14.5) % Plt Count (130-400) K/uL MPV (9.4-12.3) fL Immature Gran % (Auto) % Neut % (Auto) % Lymph % (Auto) % [place] % (Auto) % Eos % (Auto) % Baso % (Auto) % Neut # (Auto) (1.4-6.5) K/uL Lymph # (Auto) (1.2-3.4) K/uL Win[place] # (Auto) (0.24-0.82) K/uL Eos # (Auto) (0-0.50) K/uL Baso # (Auto) (0-0.2) K/uL Immature Gran # (Auto) (0.00-0.02) K/uL Sodium 139 (136-145) mmol/L Potassium 3.4 L (3.5-5.1) mmol/L Chloride 96 L (98-107) mmol/L Carbon Dioxide 32 (21-32) mmol/L Anion Gap 11 (3-11) BUN 27 H (6-23) mg/dl Creatinine 1.21 H (0.6-1.2) mg/dl Est Cr Clr Drug Dosing 40.0 ml/min Est GFR ( Amer) 48.3 ml/min Est GFR (Non-Af Amer) 41.6 ml/min BUN/Creatinine Ratio 22.3 H (10-20) Glucose 110 H (70-99(Fasting)) mg/dl Calcium 8.4 L (8.5-10.1) mg/dl Magnesium 1.6 L (1.7-2.4) mg/dl Total Bilirubin 0.5 (0.2-1.0) mg/dl AST 24 (13-39) U/L ALT 34 (7-52) U/L Alkaline Phosphatase 96 (34-104) U/L Troponin I High Sens 49.8 H (0-14) pg/ml C-Reactive Protein 1.84 H (0-0.5) mg/dl Total Protein 7.4 (6.0-8.3) gm/dl Albumin 4.2 (3.4-5.0) gm/dl Globulin 3.2 (2.5-4.0) gm/dl Albumin/Globulin Ratio 1.3 (0.9-2) TSH 3.581 (0.300-4.500) uIu/ml Urine Color Urine Appearance (Clear) Urine pH (4.5-7.5) Ur Specific Hurricane (1.000-1.030) Urine Protein (Negative) Urine Glucose (UA) (Negative) Urine Ketones (Negative) Urine Blood (Negative) Urine Nitrite (Negative) Urine Bilirubin (Negative) Urine Urobilinogen (Negative) Ur Leukocyte Esterase (Negative) Urine WBC (Auto) (0-5) /hpf Urine RBC (Auto) (0-4) /hpf U Hyaline Cast (Auto) (0-5) /lpf U Epithel Cells (Auto) (0-5) /lpf Urine Bacteria (Auto) (Negative) SARS-CoV-2 (PCR) (Negative) Influenza Type A (PCR) (Neg) Influenza Type B (PCR) (Neg) RSV (RT-PCR) (Neg) Administered Medications Discontinued Medications Sodium Chloride (Nss 1000ml) 500 mls @ 999 mls/hr IV .Q31M ONE Stop: 05/01/22 14:43 Last Infusion: 05/01/22 16:46 Dose: 0 mls/hr Documented By: Admin: 05/01/22 14:30 Dose: 999 mls/hr Documented By: AVILA Acetaminophen (Ofirmev) 1,000 mg in 100 mls @ 400 mls/hr IV NOW STA Stop: 05/01/22 14:28 Last Infusion: 05/01/22 15:21 Dose: 0 mls/hr Documented By: Admin: 05/01/22 15:03 Dose: 400 mls/hr Documented By: AVILA Ceftriaxone Sodium (Rocephin) 2,000 mg in 70 mls @ 140 mls/hr IV NOW STA Stop: 05/01/22 15:09 Last Infusion: 05/01/22 15:21 Dose: 0 mls/hr Documented By: Admin: 05/01/22 14:51 Dose: 140 mls/hr Documented By: AVILA Ondansetron HCl (Ondansetron Inj 2 Mg/Ml 2 Ml Vial) 4 mg IV NOW STA Stop: 05/01/22 14:14 Last Admin: 05/01/22 15:03 Dose: 4 mg Documented By: AVILA Imaging Data Radiologist's Impression: Chest X-Ray 05/01/22 12:02 XR chest 1V portable CLINICAL HISTORY: weakness. Evaluate cardiopulmonary status COMPARISON STUDY: No previous studies for comparison. TECHNIQUE: 1 view of the chest FINDINGS: Single frontal view of the chest demonstrates the heart size to be mildly enlarged. There is asymmetric elevation of the right hemidiaphragm with crowding the bronchovascular markings at the right lung base. The lungs are clear of alveolar opacities. There is no evidence for pleural effusion. There is no evide nce for vascular congestion. There is no acute osseous pathology. IMPRESSION: 1. No acute cardiopulmonary disease. 2. Cardiomegaly with asymmetric elevation of the right hemidiaphragm. ACT 112: Negative or not required by law. Electronically signed by: Jaime Verduzco M.D. 05/01/2022 12:32 PM Abdomen/Pelvis CT 05/01/22 14:12 CT abd pelvis wo con CLINICAL HISTORY: flank pain, poss UTI, covid + TECHNIQUE: Helical axial images of the abdomen and pelvis were obtained. Automated dose lowering techniques and/or adjustment according to patient size were utilized for this exam. This exam was performed without intravenous cont rast. CT DOSE: 1736.89 mGy.cm COMPARISON: None available at the time of this dictation. FINDINGS: Lower chest: Bibasilar atelectasis versus scarring is seen. Liver: Unremarkable. No focal lesions are seen. Gallbladder and biliary tree: Patient is status post cholecystectomy. No intra- or extrahepatic biliary ductal dilation. Pancreas: Fatty replacement of the pancreas is seen. Spleen: Unremarkable. Adrenals: Lipid rich adenoma is seen on the left. Kidneys and ureters: Unremarkable. Bladder: Unremarkable. Reproductive organs: Unremarkable. Bowel: Diverticulosis is seen without evidence of diverticulitis. The appendix is normal. A hiatal hernia is seen. Lymph nodes Retroperitoneal: Unremarkable. Pelvic: Unremarkable. Mesenteric: Unremarkable. Peritoneum: Normal. Vessels: Atherosclerotic calcifications are seen. Abdominal wall: Unremarkable. Bones: Degenerative changes in the visualized spine. IMPRESSION: No acute abnormalities. In particular, no hydronephrosis or obstructive nephrolithiasis is seen. However, CT is not a sensitive modality for UTI/pyelonephritis. ACT 112: Negative or not required by law. Electronically signed by: Lester Haque M.D. 05/01/2022 3:26 PM Discharge Plan Visit Data Chief Complaint: Illness Stated Complaint: ILLNESS ED Provider: Jerry Feliciano Discharge Problem: COVID-19, Bilateral flank pain, Generalized weakness Patient Disposition: Admitted As Inpatient Discharge Instructions Interventions: ED Discharge Assessment Last Done: 05/01/22 17:18
[2022-05-01 13:42] LABS: Appearance Urine Clear (Clear); Bacteria Urine Automated 2+ (Negative); Bilirubin Urine Negative (Negative); Blood Urine Negative (Negative); Color Urine Yellow; Epithelial Cell Urine Auto >30 /lpf (0-5); Glucose Urine UA Negative (Negative); Ketones Urine Trace (Negative); Leukocyte Esterase Urine Trace (Negative); Nitrite Urine Negative (Negative); Protein Urine Negative (Negative); RBC Urine Automated 0-4 /hpf (0-4); Specific Gravity Urine 1.012 (1.000-1.030); Urobilinogen Urine Negative (Negative); pH Urine 5.5 (4.5-7.5)
[2022-05-01 13:56] LABS: Basophils # (auto) 0.01 K/uL (0-0.2); Basophils % (auto) 0.3 %; Eosinophils # (auto) 0.02 K/uL (0-0.50); Eosinophils % (auto) 0.6 %; Hematocrit (blood only) 48.1 % (34.1-44.9); Hemoglobin 15.5 g/dl (12.0-16.0); Immature Granulocytes # (auto) 0.01 K/uL (0.00-0.02); Immature Granulocytes % (auto) 0.3 %; Lymphocytes # (auto) 1.02 K/uL (1.2-3.4); Lymphocytes % (auto) 28.3 %; Mean Corpuscular Hemoglobin 29.1 pg (25.0-34.0); Mean Corpuscular Hgb Conc 32.2 g/dL (32.0-36.0); Mean Corpuscular Volume 90.2 fL (80.0-100.0); Mean Platelet Volume 11.5 fL (9.4-12.3); Monocytes # (auto) 0.45 K/uL (0.24-0.82); Monocytes % (auto) 12.5 %; Neutrophils # (auto) 2.09 K/uL (1.4-6.5); Platelet Count 158 K/uL (130-400); RDW Coefficient of Variation 16.6 % (11.5-14.5); RDW Standard Deviation 55.3 fL (36.4-46.3); Red Blood Count 5.33 M/uL (3.93-5.22)
[2022-05-01] MEDS ORDERED: SODIUM CHLORIDE 0.9% 1000ML 1,000 ML IV STA (14:13)
[2022-05-01] MEDS ORDERED: ONDANSETRON INJ 2 MG/ML 2 ML VIAL IV STA (14:13)
[2022-05-01] MEDS ORDERED: SODIUM CHLORIDE 0.9% 1000ML 500 ML IV ONE (14:13)
[2022-05-01] MEDS ORDERED: ACETAMINOPHEN 1,000 MG/100 ML VIAL IV STA (14:14)
[2022-05-01 14:17] LABS: Albumin Globulin Ratio 1.3 (0.9-2); Albumin Level 4.2 gm/dl (3.4-5.0); BUN Creatinine Ratio 22.3 (10-20); Bilirubin,Total 0.5 mg/dl (0.2-1.0); Calcium 8.4 mg/dl (8.5-10.1); Est GFR (African American) 48.3 ml/min; Est GFR (Non-African American) 41.6 ml/min; Globulin 3.2 gm/dl (2.5-4.0); Magnesium 1.6 mg/dl (1.7-2.4); Potassium 3.4 mmol/L (3.5-5.1); Total Protein 7.4 gm/dl (6.0-8.3)
[2022-05-01 14:21] LABS: Troponin I High Sensitivity 49.8 pg/ml (0-14)
[2022-05-01] MEDS ORDERED: cefTRIAXone SODIUM 2,000 MG/70 ML BAG IV STA (14:40)
--- NOTE | 2022-05-01 15:12 | History & Physical Report ---
Date of Service May 01, 2022 Assessment & Plan (1) COVID: Plan: Alf Warner is an 82-year-old female with a past medical history of obesity, type 2 diabetes mellitus, hypertension, hyperlipidemia, anxiety, adrenal adenoma, hypothyroidism, gout, peripheral artery disease, chronic venous insufficiency, ambulatory dysfunction who presents with weakness in the setting of COVID-19 positive. Cath urine is infected appearing, concerning for superimposed UTI. COVID-pneumonia without hypoxia, with worsened weakness and ambulation and diarrhea Covid positive First day of symptoms: 04/26/2022 (approximately 5 days) with hoarseness, nasal congestion, subjective feeling feverish and with cough Vaccination status: Unvaccinated Baseline kidney function: Normal, less than 1 Admitting kidney function: Mildly elevated, 1.21 with BUN/creatinine ratio 22 AST/ALT: Normal CXR: 1. No acute cardiopulmonary disease. 2. Cardiomegaly with asymmetric elevation of the right hemidiaphragm. CRP: Pending Patient 100% on room air, steroids/remdesivir not indicated at this time. Follow for O2 req. Does not meet criteria for baricitinib at this time PT/OT consulted, CM consulted for complex needs. Patient with with Alzheimer's, is very weak and wheelchair-bound at baseline UTI Cath UA with 2+ bacteria, leukocyte esterase, WBC. UC pending Received empiric coverage with Rocephin for UTI Continue pending culture CTA/P: No acute abnormalities. In particular, no hydronephrosis or obstructive nephrolithiasis is seen. However, CT is not a sensitive modality for UTI/pyelonephritis.0 Hypokalemia - K 3.4, Mg low. Repletion ordered - BMP, am Mag _ On tele for trop/cardiac eval. No chest pain. No clinical ACS. CHAKA versus prerenal azotemia Creatinine baseline less than 1, elevated to 1.21 on admission with increased creatinine BUN ratio Poor p.o. intake in the setting of COVID/suspected UTI Received 500 cc bolus and 1 L of maintenance in ER A.m. Lasix held, resume if creatinine normalizes Troponin elevation No chest pain at any point Sensitivity troponin 49.8 on admission EKG: Old T wave inversions, no acute ST segment changes No signs of ACS, will trend troponins overnight and monitor on telemetry Hypertension On salt restriction as outpatient Normotensive at admission Type 2 diabetes mellitus Not on home medications Following A1c every 6 months as outpatient BSG 110 on admission Follow BMP daily, A1c 6.2 in December, repeat pending If persistent hyperglycemia, or patient requires initiation of steroids start SSI versus matched regular Hyperlipidemia Not on statin Hypothyroidism Continue Synthroid TSH/free T4 pending Chronic venous insufficiency No history of heart failure Lasix held for volume depletion PAD Reports she takes a full dose, not a baby aspirin.Does not want to switch to baby aspirin at this time, reports that she had any bleeding problems and would like to follow-up with Dr. Abdullahi for recommendations regarding any change to her aspirin if indicated Reports that nifedipine helps substantially with her circulation and symptoms, continued Restless leg syndrome Pramipexole continued Osteoarthritis At baseline, continue home dose of tramadol daily DVT PPx: COVID PPx Lovenox Diet: DM2 Dispo: Med/Surg+Tele Code Status: Surrogate DM would not be due to his Alzheimers, pt would want daughter Alicia. DNR/DNI (2) UTI (urinary tract infection): (3) Fatty liver: (4) GERD (gastroesophageal reflux disease): (5) Hypercholesteremia: (6) Hypertension: (7) Hypothyroid: (8) Chronic venous insufficiency: (9) Ambulatory dysfunction: (10) Type 2 diabetes mellitus: (11) RLS (restless legs syndrome): (12) PAD (peripheral artery disease): History of Present Illness Primary Care Provider: DO Mk Hilldanica Warner is an 82-year-old female with a past medical history of obesity, type 2 diabetes mellitus, hypertension, hyperlipidemia, anxiety, adrenal adenoma, hypothyroidism, gout, peripheral artery disease, chronic venous insufficiency, ambulatory dysfunction who presents with weakness in the setting of COVID-19 positive. Cath urine is infected appearing, concerning for superimposed UTI. +cough, aches, pains, diarrhea for ~5 days. Very weak. cough is productive for thick white/light yellow sputum. Appetite diminished. +nausea, no vomiting. +diarrhea. No blood or melena. No constipation No dysuria, endorses some abdominal discomfort with left flank pain and right lower quadrant abdominal discomfort which does not radiate Takes full dose aspirin, thinks this is for her legs, reports she has been on full dose for many years and tolerates it well would like to defer any change in dosing unless discussed with Dr. Abdullahi. Daughter is COVID positive No lung disease No heart disease Chronic leg swelling. Actually less swollen than normal this week. Nifedipine help swith circulation. Has taken a full dose aspirin. Mary snot want baby aspirin. Medical History: Reviewed Medications: Reviewed Surgical History: Reviewed Allergies: Reviewed Social History: No tobacco product use or alcohol use. Code Status: Surrogate DM would not be due to his Alzheimers, pt would want daughter Alicia. DNR/DNI Allergies Allergy/AdvReac Type Severity Reaction Status Date / Time adhesive Allergy Intermediate SKIN Verified 05/01/22 15:35 IRRITATION latex AdvReac Intermediate WATER Verified 05/01/22 15:35 FILLED BLISTERS Home Medications Medication Instructions Recorded Confirmed Type ascorbic acid (vitamin C) 1,000 mg 1 g PO QAM 10/26/18 03/04/22 History tablet aspirin 325 mg tablet 325 mg PO QAM 10/26/18 03/04/22 History acetaminophen 325 mg tablet (Mapap 650 mg PO Q4H PRN pain #30 tabs 03/24/19 03/04/22 Rx (acetaminophen)) docusate sodium 100 mg tablet 100 mg PO TID 05/03/19 03/04/22 History allopurinol 100 mg tablet 100 mg PO TID #270 tabs 04/08/21 03/04/22 Rx (Zyloprim) calcium carbonate 600 mg calcium 600 mg PO QAM 05/06/21 03/04/22 History (1,500 mg) tablet ipratropium 0.5 mg-albuterol 3 mg 3 ml NEB QID PRN shortness of 11/12/21 03/04/22 Rx (2.5 mg base)/3 mL nebulization breath #90 mL soln Lactobacillus acidophilus 1.5 mg 1.5 mg PO QAM 01/17/22 03/04/22 History (250 million cell) capsule (Probiotic Acidophilus) calcium phosphate,dibasic 77 400 tab PO QAM 01/17/22 03/04/22 History mg-vitamin D3 400 unit tablet levothyroxine 125 mcg tablet 125 mcg PO QAM 01/17/22 03/04/22 History solifenacin 10 mg tablet (Vesicare) 10 mg PO QAM 01/17/22 03/04/22 History vitamin E 30 unit capsule 30 unit PO QAM 01/17/22 03/04/22 History triamcinolone acetonide 0.025 % 1 applic topical BID #454 grams 01/29/22 03/04/22 Rx topical cream diclofenac sodium 1 % topical gel 2 g topical QID #100 grams 01/30/22 03/04/22 Rx (Voltaren Arthritis Pain) pramipexole 0.5 mg tablet 0.5 mg PO HS #90 tabs 02/12/22 03/04/22 Rx Oxygen Home #1 ea 02/19/22 03/04/22 Rx furosemide 80 mg tablet 80 mg PO QAM #90 tabs 03/04/22 03/04/22 Rx gabapentin 300 mg capsule 300 mg PO TID #90 caps 03/10/22 Rx potassium chloride 10 mEq 20 meq PO QAM #180 tabs 04/07/22 Rx tablet,extended release tramadol 50 mg tablet 50 mg PO Q8H PRN pain #30 tabs 04/07/22 Rx nifedipine 30 mg tablet,extended 30 mg PO QAM #30 tabs 04/17/22 Rx release Mattress (Air or other) #1 ea 04/24/22 Rx Past Med/Surg History Medical History Adrenal adenoma Ambulatory dysfunction Anemia Anxiety Arthritis Chronic venous insufficiency Depression Fatty liver GERD (gastroesophageal reflux disease) Gout History of stomach ulcers Hypercholesteremia Hypertension Hypothyroid Lumbar degenerative disc disease Morbid obesity Nocturnal hypoxemia Osteoarthritis PAD (peripheral artery disease) RLS (restless legs syndrome) Type 2 diabetes mellitus Urinary incontinence Surgical History History of bilateral knee replacement History of cholecystectomy History of hysterectomy 09/01/06 Hx of cataract surgery (~2013) 2013 S/P hemorrhoidectomy rubber banding 03/2015 S/P tonsillectomy Family History Father Myocardial infarction Diabetes Hypertension Mother Myocardial infarction Family history of gallbladder disease Brother Colorectal cancer Diabetes Sister Diabetes Breast cancer Family/Other Ovarian cancer Prostate cancer Social History Smoking Status: Former smoker Tobacco Type: Cigarettes Age Started Using Tobacco: 17; Age Quit Using Tobacco: 25; packs per day: 0.5; Second Hand Exposure: No; Hx Alcohol Use: No Hx Substance Use: No Preferred Language: Mohawk Communication Ability: Effective Visual Impairment: No Limitations Hearing Ability: Use of Hearing Aid Student Development Coordinator Required: No Beliefs That Will Affect Care: None marital status: Current Living Situation: Spouse and Family Current Living Situation Comment: home w/ (whom has dementia) and 2 daughters. current occupational status: retired Feels Safe at Home: Yes Childhood Exposure to Second-Hand Smoke: No caffeine: Yes (drinks coffee and soda) during the past year weight has: remained stable Dental Care, Regularly: No Physical Activity Frequency: Other Seatbelt Use: always Sunscreen Use: Yes Assistive Devices: Hospital Bed, Nebulizer, Scooter/Electric Scooter, Walker and Wheelchair Review of Systems Review of Systems: All systems reviewed & are unremarkable except as noted in Subjective Physical Exam Physical Exam: General: A&Ox3. NAD. Cooperative. HEENT: Atraumatic, normocephalic. Vision/hearing grossly intact. No JVD. Pulm: diminished, distant but grossly clear symmetrical chest rise. No increased work of breathing. No respiratory distress. Cardiac: Regular, with intermittent mild tachycardia, -mrg. Radial pulses intact and symmetrical. Abdominal: Right lower quadrant mildly tender to palpation without rebound/guarding. Left flank mildly tender to palpation without rebound/guarding. Bowel sounds intact. Extremities: Mild pitting edema lower extremities bilaterally, improved from baseline per patient. Skin warm and dry. 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, sensation of soft touch in feet intact Results & Data Results & Data ([facility]) Vital Signs (Past 12 Hours) Vital Signs Temp Pulse Pulse Resp BP BP Pulse Ox 05/01/22 14:07 91 H 17 100 05/01/22 14:07 91 H 15 122/81 100 05/01/22 11:16 36.4 C L 96 H 18 117/69 94 O2 Del Method O2 Flow Rate 05/01/22 14:07 Room Air 05/01/22 14:07 Room Air 05/01/22 11:16 Nasal Cannula 2 PG Care Time/CCT Total # of Minutes Spent Total Time Spent with Patient: Total time spent is greater than 50% in coordination of care (as documented) at patient's floor/unit and/or counseling patient: Coding Level of Care Code INT OBSERVATION CARE 50M LVL 2 Diagnoses COVID U07.1 UTI (urinary tract infection) N39.0 Fatty liver K76.0 GERD (gastroesophageal reflux disease) K21.9 Hypercholesteremia E78.00 Hypertension I10 Hypothyroid E03.9 Chronic venous insufficiency I87.2 Ambulatory dysfunction R26.2 Type 2 diabetes mellitus E11.9 RLS (restless legs syndrome) G25.81 PAD (peripheral artery disease) I73.9
--- NOTE | 2022-05-01 15:28 | CT Scan Report ---
CT abd pelvis wo con CLINICAL HISTORY: flank pain, poss UTI, covid + TECHNIQUE: Helical axial images of the abdomen and pelvis were obtained. Automated dose lowering tech niques and/or adjustment according to patient size were utilized for this exam. This exam was perfor med without intravenous contrast. CT DOSE: 1736.89 mGy.cm COMPARISON: None available at the time of this dictation. FINDINGS: Lower chest: Bibasilar atelectasis versus scarring is seen. Liver: Unremarkable. No focal lesions are seen. Gallbladder and biliary tree: Patient is status post cholecystectomy. No intra- or extrahepatic bilia ry ductal dilation. Pancreas: Fatty replacement of the pancreas is seen. Spleen: Unremarkable. Adrenals: Lipid rich adenoma is seen on the left. Kidneys and ureters: Unremarkable. Bladder: Unremarkable. Reproductive organs: Unremarkable. Bowel: Diverticulosis is seen without evidence of diverticulitis. The appendix is normal. A hiatal he rnia is seen. Lymph nodes Retroperitoneal: Unremarkable. Pelvic: Unremarkable. Mesenteric: Unremarkable. Peritoneum: Normal. Vessels: Atherosclerotic calcifications are seen. Abdominal wall: Unremarkable. Bones: Degenerative changes in the visualized spine. IMPRESSION: No acute abnormalities. In particular, no hydronephrosis or obstructive nephrolithiasis is seen. Meeks gudelia, CT is not a sensitive modality for UTI/pyelonephritis. ACT 112: Negative or not required by law. Electronically signed by: Lester Haque M.D. 05/01/2022 3:26 PM
[2022-05-01] MEDS ORDERED: ONDANSETRON INJ 2 MG/ML 2 ML VIAL IV PRN (18:26)
[2022-05-01] MEDS ORDERED: traMADol HCL 50 MG TABLET PO PRN (18:26)
[2022-05-01] MEDS ORDERED: ACETAMINOPHEN 325 MG TAB PO PRN (18:26)
[2022-05-01] MEDS ORDERED: POLYETHYLENE (MIRALAX) 17 GM PACK PO PRN (18:26)
[2022-05-01] MEDS ORDERED: SODIUM CHLORIDE 0.9% 1000ML 1,000 ML IV SCH (20:00)
[2022-05-01] MEDS ORDERED: SODIUM CHLORIDE 0.9% 500 ML IV SCH (20:00)
[2022-05-01] MEDS ORDERED: PRAMIPEXOLE DIHYDROCHLO 0.5 MG TAB PO SCH (21:00)
[2022-05-01] MEDS: ENOXAPARIN INJ 40 MG/0.4 ML SYR SQ SCH (21:59)
[2022-05-01] MEDS: MAGNESIUM OXIDE 400 MG TAB PO SCH (22:00)
[2022-05-01] MEDS: GABAPENTIN 300 MG CAP PO SCH (22:01)
[2022-05-01] MEDS: allopurinoL 100 MG TAB PO SCH (22:01)
[2022-05-02 06:21] LABS: Basophils # (auto) 0.01 K/uL (0-0.2); Basophils % (auto) 0.3 %; Eosinophils # (auto) 0.02 K/uL (0-0.50); Eosinophils % (auto) 0.6 %; Hematocrit (blood only) 43.1 % (34.1-44.9); Hemoglobin 13.5 g/dl (12.0-16.0); Immature Granulocytes # (auto) 0.01 K/uL (0.00-0.02); Immature Granulocytes % (auto) 0.3 %; Mean Corpuscular Hgb Conc 31.3 g/dL (32.0-36.0); Mean Corpuscular Volume 92.5 fL (80.0-100.0); Monocytes # (auto) 0.34 K/uL (0.24-0.82); Monocytes % (auto) 10.6 %; Neutrophils # (auto) 1.94 K/uL (1.4-6.5); Neutrophils % (auto) 60.2 %; Platelet Count 146 K/uL (130-400); RDW Coefficient of Variation 16.3 % (11.5-14.5); RDW Standard Deviation 55.6 fL (36.4-46.3); Red Blood Count 4.66 M/uL (3.93-5.22); White Blood Count 3.22 K/ul (4.8-10.8)
[2022-05-02] MEDS: ENOXAPARIN INJ 40 MG/0.4 ML SYR SQ SCH (06:24)
[2022-05-02 07:37] LABS: BUN Creatinine Ratio 23.3 (10-20); C Reactive Protein 1.69 mg/dl (0-0.5); Calcium 7.4 mg/dl (8.5-10.1); Creatinine Clr Calc Pharmacy 55.8 ml/min; Est GFR (African American) 72.9 ml/min; Est GFR (Non-African American) 62.9 ml/min; Magnesium 1.7 mg/dl (1.7-2.4); Potassium 3.1 mmol/L (3.5-5.1)
[2022-05-02] MEDS ORDERED: POTASSIUM CHLORIDE CRTAB 20 MEQ TABCR PO STA (07:55)
[2022-05-02] MEDS: allopurinoL 100 MG TAB PO SCH (08:24)
[2022-05-02] MEDS: GABAPENTIN 300 MG CAP PO SCH (08:24)
[2022-05-02] MEDS: MAGNESIUM OXIDE 400 MG TAB PO SCH (08:24)
[2022-05-02] MEDS ORDERED: NIFEdipine EXTENDED REL 30 MG TABCR PO SCH (09:00)
[2022-05-02] MEDS ORDERED: cefTRIAXone SODIUM 2,000 MG in DEXTROSE 5% 50 ML IV SCH (09:00)
[2022-05-02] MEDS ORDERED: LEVOTHYROXINE SODIUM 125 MCG TABLET PO SCH (09:00)
[2022-05-02] MEDS ORDERED: ASPIRIN 325 MG ECTAB PO SCH (09:00)
--- NOTE | 2022-05-02 13:51 | Discharge Summary ---
Date of Service May 02, 2022 Admission HPI Per Admitting Provider Alf Warner is an 82-year-old female with a past medical history of obesity, type 2 diabetes mellitus, hypertension, hyperlipidemia, anxiety, adrenal adenoma, hypothyroidism, gout, peripheral artery disease, chronic venous insufficiency, ambulatory dysfunction who presents with weakness in the setting of COVID-19 positive. Cath urine is infected appearing, concerning for superimposed UTI. +cough, aches, pains, diarrhea for ~5 days. Very weak. cough is productive for thick white/light yellow sputum. Appetite diminished. +nausea, no vomiting. +diarrhea. No blood or melena. No constipation No dysuria, endorses some abdominal discomfort with left flank pain and right lower quadrant abdominal discomfort which does not radiate Takes full dose aspirin, thinks this is for her legs, reports she has been on full dose for many years and tolerates it well would like to defer any change in dosing unless discussed with Dr. Abdullahi. Daughter is COVID positive No lung disease No heart disease Chronic leg swelling. Actually less swollen than normal this week. Nifedipine help swith circulation. Has taken a full dose aspirin. Mary snot want baby aspirin. Medical History: Reviewed Medications: Reviewed Surgical History: Reviewed Allergies: Reviewed Social History: No tobacco product use or alcohol use. Code Status: Surrogate DM would not be due to his Alzheimers, pt would want daughter Alicia. DNR/DNI Principal Diagnosis 1. COVID-19 2. UTI Discharge Exam GENERAL: 82 yo Well-developed, well-nourished but obese elderly WF. NAD. LUNGS: Clear to auscultation bilaterally. No W/R/R. CARDIOVASCULAR: Regular rate and rhythm. ABDOMEN: Soft, non-tender and non-distended. Bs normoactive x 4 quad. EXTREMITIES: No edema. Non-tender. Peripheral pulses +2/4. NEUROLOGIC: A&O x3. Nonfocal PSYCHIATRIC: Cooperative. Appropriate mood and affect. SKIN: Warm, dry, intact. No rashes or lesions. Discharge Data Allergies Allergy/AdvReac Type Severity Reaction Status Date / Time adhesive Allergy Intermediate SKIN Verified 05/01/22 15:35 IRRITATION latex AdvReac Intermediate WATER Verified 05/01/22 15:35 FILLED BLISTERS Consultations 05/01/22 16:29 ED Decision to Admit Stat Ordered Studies Abdomen/Pelvis CT 05/01/22 14:12 CT abd pelvis wo con CLINICAL HISTORY: flank pain, poss UTI, covid + TECHNIQUE: Helical axial images of the abdomen and pelvis were obtained. Automated dose lowering techniques and/or adjustment according to patient size were utilized for this exam. This exam was performed without intravenous contrast. CT DOSE: 1736.89 mGy.cm COMPARISON: None available at the time of this dictation. FINDINGS: Lower chest: Bibasilar atelectasis versus scarring is seen. Liver: Unremarkable. No focal lesions are seen. Gallbladder and biliary tree: Patient is status post cholecystectomy. No intra- or extrahepatic biliary ductal dilation. Pancreas: Fatty replacement of the pancreas is seen. Spleen: Unremarkable. Adrenals: Lipid rich adenoma is seen on the left. Kidneys and ureters: Unremarkable. Bladder: Unremarkable. Reproductive organs: Unremarkable. Bowel: Diverticulosis is seen without evidence of diverticulitis. The appendix is normal. A hiatal hernia is seen. Lymph nodes Retroperitoneal: Unremarkable. Pelvic: Unremarkable. Mesenteric: Unremarkable. Peritoneum: Normal. Vessels: Atherosclerotic calcifications are seen. Abdominal wall: Unremarkable. Bones: Degenerative changes in the visualized spine. IMPRESSION: No acute abnormalities. In particular, no hydronephrosis or obstructive nephrolithiasis is seen. However, CT is not a sensitive modality for UTI/pyelonephritis. ACT 112: Negative or not required by law. Electronically signed by: Lester Haque M.D. 05/01/2022 3:26 PM Hospital Course (1) COVID: Alf Warner is an 82-year-old female with a past medical history of obesity, type 2 diabetes mellitus, hypertension, hyperlipidemia, anxiety, adrenal adenoma, hypothyroidism, gout, peripheral artery disease, chronic venous insufficiency, ambulatory dysfunction who presents with weakness in the setting of COVID-19 positive. Cath urine is infected appearing, concerning for superimposed UTI. COVID-pneumonia without hypoxia, with worsened weakness and ambulation and diarrhea Covid positive First day of symptoms: 04/26/2022 (approximately 5 days) with hoarseness, nasal congestion, subjective feeling feverish and with cough Vaccination status: Unvaccinated Baseline kidney function: Normal, less than 1 Admitting kidney function: Mildly elevated, 1.21 with BUN/creatinine ratio 22 AST/ALT: Normal CXR: 1. No acute cardiopulmonary disease. 2. Cardiomegaly with asymmetric elevation of the right hemidiaphragm. CRP: 1.84 on 05/01 and 1.69 on 05/02 Patient 100% on room air, steroids/remdesivir not indicated at this time. Does not meet criteria for baricitinib at this time PT/OT consulted, CM consulted for complex needs. Patient with with Alzheimer's, is very weak and wheelchair-bound at baseline (2) UTI (urinary tract infection): Cath UA with 2+ bacteria, leukocyte esterase, WBC. UC ordered. Received empiric coverage with Rocephin for UTI CTA/P: No acute abnormalities. In particular, no hydronephrosis or obstructive nephrolithiasis is seen. However, CT is not a sensitive modality for UTI/pyelonephritis. Urine culture with prelim of GNB - suspect E. coli as in her past UTIs (most recent December 2021) which was sensitive to Rocephin. Uncomplicated, treat x 5 days total (3 more days of Cefdinir sent to pharmacy) Mildly elevated creat of 1.2 on admission has normalized with hydration, suspect mildly dehydrated insetting of covid with poor oral intake, diarrhea, and ongoing diuretic use - Lasix held but can be resumed upon d/c (3) Elevated troponin: No chest pain at any point Sensitivity troponin 49.8 on admission EKG: Old T wave inversions, no acute ST segment changes No signs of ACS, will trend troponins overnight which have remained stable/essentially unchanged No changes noted overnight on monitor Suspect myocardial demand ischemia in setting of covid infection + uti (4) Type 2 diabetes mellitus: Not on home medications Following A1c every 6 months as outpatient BSG 110 on admission Follow BMP daily, A1c 6.2 in December (5) Fatty liver: Chronic (6) GERD (gastroesophageal reflux disease): Seems controlled, takes no meds (7) Hypercholesteremia: Not on any statin meds Follow up with pcp (8) Hypertension: Salt restriction at home Normotensive (9) Hypothyroid: Continue Synthroid (10) Chronic venous insufficiency: Uses Lasix - no h/o HF (11) RLS (restless legs syndrome): Pramipexole (12) PAD (peripheral artery disease): On full strength aspirin and also takes Nifedipine which as been continued Plan Patient is not requiring supplemental O2 and therefore not a candidate for inpatient treatment for COVID such as IV Decadron or Remdesivir. Symptoms are mild but would benefit given her other comorbidities from Paxlovid. Discussed with pt's daughters with whom she lives and are agreeable to home with home health-fdc, pt/ot services. Patient is more concerned about her who also lives with her and her daughters and is also covid positive but has Alzheimer's and other comorbidities. Unfortunately, his case is being managed by another provider and I was not able to give her an update on his status. Pt has been advised to follow up with her family doctor within 1 week. Follow all CDC/[facility] health department guidelines regarding isolation. Plan has been d/w Dr. Martinez who is in agreement. Total Time Total Time Spent Total Time Spent (In Minutes): >30 minutes Discharge Plan Discharge Items Patient Disposition: Home - Home Health Services Reason For Visit: COVID+, UTI, WEAKNESS Discharge Diagnosis: covid-19, urinary tact infection Activity: Resume your previous activity Activity Comment: Activity as tolerated Non-emergency contact: Primary Care Provider Call non-emergency contact if: you have any medication questions Follow-up/Referrals: Maria Esther Abdullahi DO [Primary Care Provider] - 05/13/22 9:20 am Diet: Carb Consistent or DM2 Addtl Attending Provider Instructions: You were hospitalized with COVID-19 as well as a urinary tract infection (bladder infection). You were placed on antibiotics in order to treat your bladder infection and will be continued on an antibiotic for 3 more days upon your return home. The antibiotic, called Cefdinir, will be taken once in the morning and once in the evening. You're next dose is due on 05/03/22 (tomorrow morning). Please take until it is gone. For your COVID-19, you did not qualify for any treatment here in the hospital as you were not requiring any oxygen or have low oxygen levels. You will be sent home on an antiviral medication called Paxlovid. A prescription for this has been sent to your pharmacy. While you are taking this medication, you CANNOT take the Vesicare that you take for your overactive bladder. You can RESUME the Vesicare when you are no longer taking the Paxlovid. You should also keep up with drinking fluid to prevent dehydration. You can use over the counter Tylenol as needed for fever, headache, or pain. We also recommend that you take Mucinex 600mg, one tablet in the morning and one tablet in the evening. This will help break up the mucus and make it easier for you to cough up. I have also sent some Tessalon perles that are small capsules you can take as needed for cough. Please use as directed. It is advised that you follow up with your family doctor within 1 week of discharge. Please follow all CDC/[facility] health department guidelines regarding isolating while you are still having symptoms. If you have any questions after you are discharged from the hospital, call the nonemergency number listed on your paperwork. If you are having a medical emergency, call 911. Pending Studies at Discharge: No Stand-Alone Forms: My [facility], Smoking Cessation Medications and DC Order Prescriptions: New Paxlovid (EUA) 300 mg (150 mg x 2)-100 mg tablets,dose pack See Rx Instructions .ROUTE .COMPLEX Qty: 30 0RF Rx Instructions: take TWO 150 mg tablets of nirmatrelvir with ONE 100 mg tablet of ritonavir twice daily for 5 days benzonatate 100 mg capsule 100 mg PO TID PRN (Reason: cough) Qty: 30 0RF cefdinir 300 mg capsule 300 mg PO BID Qty: 6 0RF Continued allopurinol [Zyloprim] 100 mg tablet 100 mg PO TID Qty: 270 1RF ipratropium-albuterol 0.5 mg-3 mg(2.5 mg base)/3 mL solution for nebulization 3 ml NEB QID PRN (Reason: shortness of breath) Qty: 90 5RF triamcinolone acetonide 0.025 % cream 1 applic topical BID Qty: 454 3RF Rx Instructions: apply to dry skin daily on face and neck BID. pramipexole 0.5 mg tablet 0.5 mg PO HS Qty: 90 1RF (DME) Oxygen Home Liters Per Minute See Rx Instructions .Route Qty: 1 0RF Rx Instructions: As directed 2 lpm at night via nasal cannula. gabapentin 300 mg capsule 300 mg PO TID Qty: 90 5RF tramadol 50 mg tablet 50 mg PO Q8H PRN (Reason: pain) Qty: 30 0RF potassium chloride 10 mEq tablet extended release 20 meq PO QAM Qty: 180 1RF nifedipine 30 mg tablet extended release 30 mg PO QAM Qty: 30 0RF (DME) Mattress (Air or other) Misc See Rx Instructions .Route Qty: 1 0RF Rx Instructions: Replace Hospital Bed Mattress- NOT AIR furosemide 80 mg tablet 80 mg PO QAM Qty: 90 1RF calcium carbonate 600 mg calcium (1,500 mg) tablet 600 mg PO QAM diclofenac sodium [Voltaren Arthritis Pain] 1 % gel 2 g topical QID Qty: 100 2RF Rx Instructions: apply to hands acetaminophen [Mapap (acetaminophen)] 325 mg Tablet 650 mg PO Q4H PRN (Reason: pain) Qty: 30 0RF ascorbic acid (vitamin C) 1,000 mg Tablet 1 g PO QAM aspirin 325 mg Tablet 325 mg PO QAM docusate sodium 100 mg tablet 100 mg PO TID levothyroxine 125 mcg tablet 125 mcg PO QAM vitamin E 30 unit Capsule 30 unit PO QAM calcium phos,dibas-vitamin D3 77-400 mg-unit Tablet 400 tab PO QAM solifenacin [Vesicare] 10 mg tablet 10 mg PO QAM Probiotic Acidophilus 1.5 mg (250 million cell) Capsule 1.5 mg PO QAM Discharge Orders: Discharge Order (Routine); Ordered 05/02/22 Ordered By: Lesli Vuong/Other Patient Handouts: Managing Type 2 Diabetes, How to Check Your Blood Sugar, Blood Sugar Check Steps Admission Data Admit Date/Time: 05/01/22 15:45 Attending Provider: Timur Martinez Admit Provider: Lam Barnes Primary Care Provider: Maria Esther Abdullahi Other Providers: Lam Barnes Other Interventions: Discharge Summary Assessment (RN) Last Done: 05/02/22 13:55 Coding Level of Care Code D/C DAY MANAGEMENT >30 MINS Diagnoses COVID U07.1 UTI (urinary tract infection) N39.0 Elevated troponin R77.8 Type 2 diabetes mellitus E11.9 Fatty liver K76.0 GERD (gastroesophageal reflux disease) K21.9 Hypercholesteremia E78.00 Hypertension I10 Hypothyroid E03.9 Chronic venous insufficiency I87.2 RLS (restless legs syndrome) G25.81 PAD (peripheral artery disease) I73.9 Home Health Attestation I certify that this patient is under my care and that I, or a physicians accounts receivable assistant working with me, had a face to-face encounter that meets the home health [id number] encounter requirements with this patient. The encounter with the patient was in whole, or in part, for the following medical condition, which is the primary reason for home health care (list medical condition): I certify that, based on my findings, the following services are medically necessary home health services: My clinical findings support the need for the above services because: Further, I certify that my clinical findings support that this patient is homebound (i.e. absences from home require considerable and taxing effort and are for medical reasons or jainism services or infrequently or of short duration when for other reasons) because: Certification for Home Health Services: Based on the above findings, I certify that this patient is confined to the home and needs intermittent fdc care, physical therapy and/or speech therapy or continues to need occupational therapy. The patient is under my care, and I have initiated the establishment of the plan of care. This patient will be followed by a physician who will periodically review the plan of care.
--- NOTE | 2022-05-03 05:42 | Electrocardiogram Report ---
Test Reason : Blood Pressure : / mmHG Vent. Rate : 090 BPM Atrial Rate : 090 BPM P-R Int : 198 ms QRS Dur : 074 ms QT Int : 382 ms P-R-T Axes : -18 100 -14 degrees QTc Int : 467 ms Poor data quality, interpretation may be adversely affected Normal sinus rhythm Rightward axis Possible Inferior infarct (cited on or before 16-MAR-2019) Abnormal ECG When compared with ECG of 17-JAN-2022 06:00, No significant change was found Confirmed by Luis Poole ([id number]) on 05/03/2022 5:42:20 AM Referred By: Maria Esther Abdullahi Confirmed By:Luis Poole
== END 2022-05-02 15:00 | disposition home health service (06) ==
LOC: EDBD → ED 11:02 → MERGE 11:02 → 2N 15:45 → SUATTDRO 15:45 → INTOOBSV 15:45 → 2N 17:18